=== PATIENT | female | born 1965 | race Caucasian/White ===

== ENCOUNTER → 2016-11-03 | Day surgery (SDC) | payer MEDICARE ==
[~2016-11-03] MED LIST: AMLO10TA2 PO; AMLO5TAB4 PO; ASPI325T4 PO; ASPI81TA2 PO; ATOR40TA59 PO; CEPH250C PO; CHLO25TA PO; CHOL200044 PO; CIPR500T94 PO; CLOP75TA PO; CYCL10TA2 PO; DICY10CA3 PO; FENTANYL PF 100 MCG/2 ML VIAL. IV PRN; GEMF600T3 PO; GUAI-105 PO; HYDR-2678 PO; HYDR-971 PO; IBUP200T77 PO; IV RINGERS,LACTATED 1000ML 1,000 ML IV SCH; L GA1CAP2 PO; LEVO25TA4 PO; LEVO500T38 PO; LIDOCAINE 1% 1 ML SYRINGE. ID PRN; LISI30TA4 PO; LISI40TA PO; LORA10TA3 PO; METF10002 PO; METO100T11 PO; METR500T PO; MV C PO; OMEG1CAP6 PO; OMEP40CA2 PO; ONDA4TAB7 PO; PITA4TAB2 PO; PROCHLORPERAZINE 10 MG/2 ML VIAL. IV PRN; PROPOFOL 20 ML IV ONE; SUCR1TAB PO; SUCR1TAB29 PO; UBID400C3 PO
--- NOTE | 2016-11-03 09:18 | PDOC1 ---
HISTORY & PHYSICAL H&P Brigida Virgen [id number] 1965 10/24/2016 10:30 AM 10/12 [place] [employer] [facility] PATIENTS COME FIRST [address] [place] [id number] . [phone] Patient: Brigida Virgen Date of : 1965 Date: 10/24/2016 10:30 AM Visit Type: Office Visit This 51 year old female presents for Abdominal pain, Diarrhea, Rectal bleeding, Elevated liver chemistry and Irritable bowel syndrome. History of Present Illness: 1. Abdominal pain Onset: 3 weeks ago. Location is midline, LLQ. The patient describes it as sharp and stabbing. Denies aggravating factors. Denies relieving factors. Additional information: Patient has episode of acute diverticulitis 3 weeks ago and went to ER and had CT. which showed diverticulitis and fatty liver. Patient was treated with Levaquin and Flagyl for 10 days. Improved. 2. Diarrhea Stool frequency: 3 to 4 times a day. The describes it as loose, mucus present and watery. It occurs cyclically. Context: AM predominance and recent antibiotics. She denies aggravating factors. Relieving factors include over the counter meds. Associated symptoms include abdominal pain and bloating. Additional information: no family history of colon cancer and no family history of Crohn's/Colitis. 3. Rectal bleeding Quality: BRBPR w/ bowel movement and BRBPR w/out bowel movement. Associated symptoms include abdominal pain and bloating. Additional information: Only has bleeding when she has diarrhea. 4. Elevated liver chemistry Associated symptoms include abdominal pain. Pertinent negatives include fatigue, jaundice, nausea and pruritus. Additional information: Patient has chronic elevation of LFT for last 2 yrs. She does not drink alcohol and no prior history of hepatitis.. 5. Irritable bowel syndrome Associated symptoms include abdominal pain and bloating. Pertinent negatives include fatigue and nausea. Additional information: Patient has chronic issue with diarrhea and was diagnosed with IBS. Treated before with Bentyl. Now takes Imodium as needed. INTAKE COMMENTS: Intake Comments: Nurse Note: the pt is here today after being seen in the ER and being dx'd with diverticulitis. The pt was put on Levaquin and flagyl at the ER. The pt states she is having diarrhea, abd pain and occassional rectal bleeding. The pt states that she does have hemorrhoids. PROBLEM LIST: Problem Description Onset Date Chronic Notes Essential hypertension 05/19/2014 Y Hyperlipidemia 05/19/2014 Y Type II diabetes mellitus uncontrolled 05/19/2014 Y Coronary atherosclerosis 05/19/2014 Y PAST MEDICAL/SURGICAL HISTORY (Detailed) Disease/disorder Onset Date Management Date Comments Hysterectomy, total CAD cardiac stents Cancer, cervical Diabetes mellitus Drug therapy Diabetes type 2 Medications (Active): Started Medication Directions Instruction Stopped 05/19/2014 Aspir-81 81 mg tablet,delayed release take 1 tablet by oral route every day 05/19/2014 atorvastatin 40 mg tablet take 1 tablet by oral route every day 07/06/2015 Carafate 1 gram tablet take 1 tablet by oral route 4 times every day on an empty stomach 1 hour before meals and at bedtime 05/19/2014 clopidogrel 75 mg tablet take 1 tablet by oral route every day 05/19/2014 Co Q-10 200 mg capsule take once daily 07/25/2016 DICYCLOMINE 10MG CAP TAKE ONE CAPSULE BY MOUTH TWICE DAILY 10/27/2014 gemfibrozil 600 mg tablet take 1 tablet by oral route 2 times every day 30 minutes before morning and evening meal hydrocodone 5 mg-acetaminophen 325 mg tablet take 1 tablet by oral route every 6 hours as needed for pain 01/26/2015 ibuprofen 800 mg tablet take 1 tablet by oral route 3 times every day with food as needed 07/25/2016 levothyroxine 25 mcg tablet TAKE ONE TABLET BY MOUTH ONCE DAILY 08/19/2016 lisinopril 40 mg tablet take 1 tablet by oral route every day 07/25/2016 metformin 1,000 mg tablet take 1 tablet by oral route 2 times every day with morning and evening meals 05/19/2014 metoprolol succinate ER 50 mg tablet,extended release 24 hr take 2 tablet by oral route every day metronidazole 500 mg tablet take 1 tablet by oral route 3 times every day 05/19/2014 omega-3 fatty acids-fish oil 360 mg-1,200 mg capsule take once daily ondansetron HCl 4 mg tablet take one tablet by mouth every 8 hours as needed for nausea 05/19/2014 Prilosec OTC 20 mg tablet,delayed release take once daily 05/19/2014 Vitamin D3 2,000 unit capsule take 1 tab po daily Allergies: Ingredient Reaction Medication Name Comment SULFA (SULFONAMIDE ANTIBIOTICS) MORPHINE HYDROCHLOROTHIAZIDE SULFA (SULFONAMIDE ANTIBIOTICS) REVIEW OF SYSTEMS System Neg/Pos Details Constitutional Negative Fatigue. GI Positive Abdominal pain, Bloating. GI Negative Jaundice and nausea. Integumentary Negative Pruritus. VITAL SIGNS Time BP mm/Hg Pulse /min Resp /min Temp F Ht ft Ht in Ht cm Wt lb Wt kg BMI kg/ m2 BSA m2 O2 Sat% 10:29 AM 122 97.6 5.0 3.00 160.02 212.40 96.343 37.62 97 Time Measured by 10:29 AM Kenisha Hickman PHYSICAL EXAM: Exam Findings Details Constitutional Normal Well developed. Eyes Normal Conjunctiva - Right: Normal, Left: Normal. Sclera - Right: Normal, Left: Normal. Nasopharynx Normal Lips/teeth/gums - Normal. Neck Exam Normal Inspection - Normal. Thyroid gland - Normal. Respiratory Normal Inspection - Normal. Auscultation - Normal. Cardiovascular Normal Regular rate and rhythm. No murmurs, gallops, or rubs. Vascular Normal Pulses - Carotids: Normal, Femoral: Normal, Dorsalis pedis: Normal. Abdomen Normal Inspection - Normal. Anterior palpation - No guarding. No abdominal tenderness. No hepatic enlargement. No splenic enlargement. No hernia. No Ascites. Skin Normal Inspection - Normal. Extremity Normal No edema. Psychiatric Normal Oriented to time, place, person, and situation. Appropriate mood and effect. The patient was checked out at 10:54 AM by Kenisha Hickman. Assessment/Plan # Detail Type Description 1. Assessment Abnormal LFTs (R79.89). Patient Plan Hepatitis profile. LAMONT, AMA, ASMA, serum Iron and %saturation. Plan Orders AMA/ Antimitochondrial Ab, LAMONT Comprehensive today, ASA/ Smooth Muscle Ab today, Hepatitis Profile Acute today and Iron And Iron Binding Capacity to be performed today. 2. Assessment Diverticulitis of large intestine without perforation or abscess without bleeding (K57.32). Patient Plan schedule colonoscopy at [facility] Plan Orders Further diagnostic evaluations ordered today include(s) Colonoscopy to be performed today. She is to schedule a follow-up visit with Monisha Nelson MD upon completion of work-up 3. Assessment Irritable bowel syndrome with diarrhea (K58.0). Patient Plan Patient on Imodium for her IBS. She use to be on betyl before. 4. Assessment Fatty liver (K76.0). Patient Plan await workup. 5. Assessment Rectal bleeding (K62.5). Patient Plan Await colonoscopy result. Electronically signed by: Monisha Nelson MD 10/24/2016 10:59 AM Document generated by: Monisha Nelson 10/24/2016 10:59 AM Riley Cary MD, [facility]; John Blackman MD Internal Medicine; Henny Sharma MD, Internal Medicine; Alaina Nelson MD Internal Medicine; Monisha Nelson MD, Gastroenterology; Chaparro Wen MD, Rheumatology, S. Ko Reyes, Physical Medicine/Rehab J. Stas CARMENN ------ 11/03/16 Patient seen and examined. No change in H&P. MONISHA NELSON MD Nov 03, 2016 09:18
--- NOTE | 2016-11-03 10:40 | PDOC4 ---
GI OP Report - Dr. Killian Date/Time DATE: 11/03/16 TIME: 10:38 Attending Physician Ciaran Killian MD Referring Physician Indications Follow-up of diverticulitis Pre-Op See the Anesthesia note for documentation of the administered medications Procedures Colonoscopy Findings - Diverticulosis in the sigmoid colon. - The examination was otherwise normal on direct and retroflexion views. - No specimens collected. Plan - Discharge patient to home. - Patient has a contact number available for emergencies. The signs and symptoms of potential delayed complications were discussed with the patient. Return to normal activities tomorrow. Written discharge instructions were provided to the patient. - Resume regular diet. - Continue present medications. - Repeat colonoscopy in 10 years for surveillance. - Return to my office as needed. CIARAN KILLIAN MD Nov 03, 2016 10:40
[2016-11-03 11:06] VITALS: BP 138/78
== END | disposition home or self-care (01) ==
LOC: ENDOS 08:30
PROVIDERS: ATTEND Internal Medicine Gastroenterology
DX: K57.30 Diverticulosis of large intestine without perforation or abscess without bleeding (principal); I10 Essential (primary) hypertension; E78.5 Hyperlipidemia, unspecified; E11.9 Type 2 diabetes mellitus without complications; I25.10 Atherosclerotic heart disease of native coronary artery without angina pectoris; Z95.5 Presence of coronary angioplasty implant and graft; Z85.41 Personal history of malignant neoplasm of cervix uteri
CPT/HCPCS: 45378; 82947; J2704

== ENCOUNTER 2017-03-28 19:24 | Emergency (ER) | payer MEDICARE ==
[~2017-03-28] VITALS: Ht 157.5 cm; Wt 95.3 kg
[~2017-03-28 19:24] MED LIST changes: +ASPI-630 PO; -ASPI325T4 PO; +ASPI325T8 PO; -ASPI81TA2 PO; -FENTANYL PF 100 MCG/2 ML VIAL. IV PRN; -IV RINGERS,LACTATED 1000ML 1,000 ML IV SCH; -LEVO500T38 PO; +LEVO500T59 PO; -LIDOCAINE 1% 1 ML SYRINGE. ID PRN; +METF-620 PO; -METF10002 PO; -PROCHLORPERAZINE 10 MG/2 ML VIAL. IV PRN; -PROPOFOL 20 ML IV ONE; -SUCR1TAB29 PO; +SUCR1TAB35 PO
[2017-03-28] MEDS ORDERED: ASPIRIN CHEWABLE 81 MG TABLET. PO ONE (19:30)
[2017-03-28] MEDS ORDERED: NITROGLYCERIN SUBLINGUAL 0.4 MG BOTTLE OF 25. SL PRN (19:30)
[2017-03-28 19:51] LABS: BASO # 0.1 x10^3/uL (0.0-0.2); BASO % 1 % (0-3); EOS % 1 % (0-3); HEMATOCRIT 39.9 % (36.0-47.0); HEMOGLOBIN 13.5 g/dL (12.0-15.5); LYMPH # 2.2 x10^3/uL (1.0-4.8); LYMPH % 24 % (24-48); MEAN CORPUSCULAR HEMOGLOBIN 31 pg (25-35); MEAN CORPUSCULAR HGB CONC 34 g/dL (31-37); MEAN CORPUSCULAR VOLUME 91 fL (79-100); MONO % 5 % (0-9); NEUT % 69 % (31-73); PLATELET COUNT 286 x10^3/uL (140-400); RED CELL DISTRIBUTION WIDTH 14.4 % (11.5-14.5); WHITE BLOOD COUNT 9.3 x10^3/uL (4.0-11.0)
[2017-03-28 20:00] LABS: CALCIUM 9.5 mg/dL (8.5-10.1); CREATININE 0.8 mg/dL (0.6-1.0); GFR 75.9
[2017-03-28] MEDS ORDERED: ACETAMINOPHEN 325 MG TABLET. PO ONE (20:00)
[2017-03-28 20:07] LABS: ALBUMIN 3.5 g/dL (3.4-5.0); DIRECT BILIRUBIN 0.1 mg/dL (0.0-0.2); TOTAL BILIRUBIN 0.4 mg/dL (0.2-1.0); TOTAL PROTEIN 8.2 g/dL (6.4-8.2)
--- NOTE | 2017-03-28 20:23 | PHYS DOC ---
Past Medical History Past Medical History: Arthritis, CAD, Diabetes-Type II, Diverticulosis, GERD, High Cholesterol, Hypertension, Hypothyroid, UT Additional Past Medical Histor: IB, cervical cancer, back pain Past Surgical History: Appendectomy, Cholecystectomy, Hysterectomy Additional Past Surgical Histo: heart cath, heart stents, Additional Information: quit in 2014 Alcohol Use: None Drug Use: None, Marijuana Adult General Chief Complaint Chief Complaint: CHEST PAIN HPI HPI 52-year-old female presenting to the emergency department with chest pain. She has a history of UT in the past. She currently is on Plavix and aspirin. She describes the pain as a pressure that is nonradiating mild intermittent and has been present for 24 hours. She denies unilateral leg swelling hemoptysis personal or family history of blood clotting disorders. She denies recent immobilization. Review of systems is negative for nausea vomiting or diaphoresis. She denies abdominal pain. Positive for chest pain. All other review of systems is negative unless otherwise noted in history of present illness. Pertinent physical exam findings: Heart rate is regular rhythm is regular. No murmur. Lungs are clear to auscultation Abdomen is soft and nontender. ED course: 52-year-old female presenting to the emergency department today with chest pain. EKG unremarkable. Chest x-ray unremarkable. Blood work obtained which included a negative troponin. Given the patient's high heart score(4) the patient was admitted for further evaluation workup and care. Cardiology consultation placed. Review of Systems Review of Systems SEE ABOVE. Current Medications Current Medications Current Medications Medications (Trade) Dose Ordered Sig/[facility] Start Time Stop Time Status Last Admin Dose Admin Acetaminophen (Tylenol) 650 mg 1X ONCE 03/28/17 20:00 03/28/17 20:01 DC 03/28/17 19:52 650 MG Aspirin (Children'S Aspirin) 324 mg 1X ONCE 03/28/17 19:30 03/28/17 19:31 DC 03/28/17 19:42 243 MG Nitroglycerin (Nitrostat) 0.4 mg PRN Q5MIN PRN 03/28/17 19:30 Allergies Allergies Allergies Coded Allergies Type Severity Reaction Last Updated Verified Sulfa (Sulfonamide Antibiotics) Allergy Severe GENERALIZED RASH 11/03/16 Yes doxycycline Allergy Severe BLISTERS ON SKIN - INTERNALLY FELT LIKE SHE WAS ON FIRE 11/03/16 Yes hydrochlorothiazide Adverse Reaction Severe HEART PALPITATIONS 11/03/16 Yes morphine Adverse Reaction Severe SEVERE HEADACE 11/03/16 Yes Physical Exam Physical Exam Constitutional: Well developed, well nourished, no acute distress, non-toxic appearance. [] HENT: Normocephalic, atraumatic, bilateral external ears normal, oropharynx moist, no oral exudates, nose normal. [] Eyes: PERRLA, EOMI, conjunctiva normal, no discharge. [] Neck: Normal range of motion, no tenderness, supple, no stridor. [] Cardiovascular:Heart rate regular rhythm, no murmur [] Lungs & Thorax: see above Abdomen: Bowel sounds normal, soft, no tenderness, no masses, no pulsatile masses. [] Skin: Warm, dry, no erythema, no rash. [] Back: No tenderness, no CVA tenderness. [] Extremities: No tenderness, no cyanosis, no clubbing, ROM intact, no edema. [] Neurologic: Alert and oriented X 3, normal motor function, normal sensory function, no focal deficits noted. [] Psychologic: Affect normal, judgement normal, mood normal. [] Current Patient Data Vital Signs Vital Signs Date Time Temp Pulse Resp B/P (MAP) Pulse Ox O2 Delivery O2 Flow Rate FiO2 03/28/17 19:27 97.7 94 24 151/95 (113) 93 Room Air 97.7 Lab Values Laboratory Tests Test 03/28/17 19:35 White Blood Count 9.3 x10^3/uL (4.0-11.0) Red Blood Count 4.40 x10^6/uL (3.50-5.40) Hemoglobin 13.5 g/dL (12.0-15.5) Hematocrit 39.9 % (36.0-47.0) Mean Corpuscular Volume 91 fL (79-100) Mean Corpuscular Hemoglobin 31 pg (25-35) Mean Corpuscular Hemoglobin Concent 34 g/dL (31-37) Red Cell Distribution Width 14.4 % (11.5-14.5) Platelet Count 286 x10^3/uL (140-400) Neutrophils (%) (Auto) 69 % (31-73) Lymphocytes (%) (Auto) 24 % (24-48) Monocytes (%) (Auto) 5 % (0-9) Eosinophils (%) (Auto) 1 % (0-3) Basophils (%) (Auto) 1 % (0-3) Neutrophils # (Auto) 6.5 x10^3uL (1.8-7.7) Lymphocytes # (Auto) 2.2 x10^3/uL (1.0-4.8) Monocytes # (Auto) 0.4 x10^3/uL (0.0-1.1) Eosinophils # (Auto) 0.1 x10^3/uL (0.0-0.7) Basophils # (Auto) 0.1 x10^3/uL (0.0-0.2) Sodium Level 137 mmol/L (136-145) Potassium Level 4.0 mmol/L (3.5-5.1) Chloride Level 97 mmol/L (98-107) L Carbon Dioxide Level 26 mmol/L (21-32) Anion Gap 14 (6-14) Blood Urea Nitrogen 15 mg/dL (7-20) Creatinine 0.8 mg/dL (0.6-1.0) Estimated GFR (Cockcroft-Gault) 75.9 Glucose Level 229 mg/dL (70-99) H Calcium Level 9.5 mg/dL (8.5-10.1) Total Bilirubin 0.4 mg/dL (0.2-1.0) Direct Bilirubin 0.1 mg/dL (0.0-0.2) Aspartate Amino Transferase (AST) 85 U/L (15-37) H Alanine Aminotransferase (ALT) 89 U/L (14-59) H Alkaline Phosphatase 137 U/L (46-116) H Troponin I Quantitative < 0.017 ng/mL (0.000-0.055) TO-Mbq-C-Type Natriuretic Peptide 27 pg/mL (0-124) Total Protein 8.2 g/dL (6.4-8.2) Albumin 3.5 g/dL (3.4-5.0) Lipase 131 U/L (73-393) Laboratory Tests 03/28/17 19:35 Laboratory Tests 03/28/17 19:35 EKG EKG EKG shows sinus rhythm with a regular rate. ST segments congruent. NH is mildly prolonged. Reviewed by myself. [] Radiology/Procedures Radiology/Procedures [] Course & Med Decision Making Course & Med Decision Making Pertinent Labs and Imaging studies reviewed. (See chart for details) [] Dragon Disclaimer Dragon Disclaimer This electronic medical record was generated, in whole or in part, using a voice recognition dictation system. Departure Departure Impression: Primary Impression: Chest pain Disposition: ADMITTED INPATIENT Admitting Physician: Roberto Sharma Condition: IMPROVED Referrals: ROBERTO HSARMA MD (PCP) Problem Qualifiers Primary Impression: Chest pain Chest pain type: unspecified Qualified Codes: R07.9 - Chest pain, unspecified KATHERYN DOMINGUEZ MD Mar 28, 2017 20:23
[2017-03-28 21:30] VITALS: BP 136/81
--- NOTE | 2017-03-28 21:52 | ACF ---
SUGEY GARCIAMark 03/28/17 2152: Admit Criteria Forms Admit Criteria Forms Admit Criteria Forms CHEST PAIN Clinical Indications for Admission to Inpatient Care (Place 'X' for any and all applicable criteria): Admission is indicated for chest pain and ANY ONE of the following(1)(2)(3)(4)(5 ): [ ]I. Angina with acute coronary syndrome (Also use Myocardial Infarction or Angina guideline) [ ]II. Hemodynamic instability [X]III. Angina needing acute intervention as indicated by ALL of the following( 11)(12): [X]a) Unstable angina is present as indicated by angina that is ANY ONE of the following: [X]i) New onset [ ]ii) Nocturnal [ ]iii) Prolonged at rest [ ]iv) Progressive [X]b) Angina warrants acute intervention as indicated by ANY ONE of the following: [ ]i) Recurrent angina (e.g, not responding as previously to treatment) [ ]ii) Angina at rest or with low-level activities despite initial medical therapy [ ]iii) New or presumably new ST-segment depression on ECG [ ]iv) Signs or symptoms of heart failure (eg, dyspnea, pulmonary edema) [ ]v) New or worsening mitral regurgitation [ ]vi) Hemodynamic instability [ ]vii) Dangerous arrhythmia (eg, sustained ventricular tachycardia) [ ]viii) History of percutaneous coronary intervention within 6 months [ ]ix) History of coronary artery bypass graft surgery [ ]x) SIRI risk score of 2 or greater[A] [X]xi) History of Diabetes(14) [ ]xii) High-risk cardiac ischemia findings on noninvasive testing (e.g, echocardiogram, treadmill testing, nuclear scan) [ ]xiii) Chronic renal insufficiency (ie, estimated GFR less than 60 mL/min/1.732m) [ ]xiv) Left ventricular ejection fraction less than 40% [ ]IV. Evidence of RI (eg, cardiac biomarkers positive, ST-segment elevation on ECG) also use Myocardial Infarction Criteria Form. [ ]V. Pulmonary edema [ ]. Respiratory distress [ ]VII. Chest pain indicative of serious diagnosis other than coronary artery disease (eg, aortic dissection) [ ]VIII. Contraindications and/or Inappropriate clinical situations for Observational Care in patients with Chest Pain, when ANY ONE of the following is required: [ ]a) Patient with risk factor for pulmonary embolism, acute coronary syndrome and myocardial infarction (18) [ ]b) Patient with Pulmonary embolism require an average LOS of 4.3 days, therefore emergency department observation management is inappropriate 18,23 [ ]c) Painful condition/s in the elderly, have the highest rate of recidivism after emergency department observation management (10.8%) 20,21,22 [ ]d) Elevated cardiac biomarker requires intensive and exhaustive care (19) [ ]IX. General contraindications and/or Inappropriate clinical situations for Observational Care in patients with Chest Pain, when ANY ONE of the following is required: [ ]a) Prediction of prolongation of LOS based on ANY ONE of the following may be considered as a contraindication for observational care 2, 3, 4, 5, 6, 7, 8, 9, 10, 11 [ ]i) Age > 65 yrs. [ ]ii) Patient arriving by ambulance [ ]iii) Patient with high acuity [ ]iv) Patient requiring vital sign monitoring [ ]v) Patient on IV medication [ ]b) Systolic blood pressures 180mmHg 3,12 [ ]c) Patient with altered mental status including delirium and other alteration of consciousness, (3) [ ]d) Patient whose discharge disposition will be to a fdc home or rehabilitation home should not be managed in Emergency Department Observation Unit. CMS rule requires 3 days hospital stay before such placement. 3,13 [ ]e) Patient with failure to thrive due to broad array of etiologies 3,16,17 [ ]f) Inability to ambulate 3,14 Extended stay beyond goal length of stay may be needed for (1)(28): [ ]a) Specific condition diagnosed after evaluation (eg, pulmonary embolism, aortic dissection) [ ]b) Unstable angina [ ]c) Continued suspicion of acute coronary syndrome with inability to complete needed cardiac evaluation (eg, patient clinically unable to undergo stress testing) [ ]d) Myocardial infarction (Contents from ANGINA and CHEST PAIN clinical indications for admission to inpatient care have been integrated in this form) The original [employer] content created by [employer] has been revised. The portions of the content which have been revised are identified through the use of italic text or in bold, and [facility] [employer] has neither reviewed nor approved the modified material. All other unmodified content is copyright [facility]. Please see references footnoted in the original [facility] edition 2016 KATHERYN DOMINGUEZ MD 03/28/17 2202: Admit Criteria Forms Admit Criteria Forms Admit Criteria Forms This patient does not meet inpatient criteria. I am unable to edit this form. MD RADHA Naranjo MANASA R. Mar 28, 2017 21:52 KATHERYN DOMINGUEZ MD Mar 28, 2017 22:02
--- NOTE | 2017-03-29 08:33 | RAD ---
EXAM: Chest one view. HISTORY: Chest pain. COMPARISON: None. FINDINGS: A frontal view of the chest is obtained. There are no confluent infiltrates. There is mild atelectasis in the right base. A calcified right basilar granuloma is stable. There is no pneumothorax or pleural effusion. The heart is not enlarged. IMPRESSION: 1. No confluent infiltrates.
--- NOTE | 2017-03-29 12:10 | EKG ---
[facility] [address] [place] [address] Test Date: 2017-03-28 Test Time: 19:30:06 Pat Name: DEION OMALLEY Department: Room: Gender: F Static Balancer: : 1965 Requested By: KATHERYN DOMINGUEZ Order Number: [id number] Reading MD: Otis Pelayo Measurements Intervals [place] Rate: 92 P: 44 [place]: 208 QRS: 12 QRSD: 72 T: 21 QT: 346 QTc: 433 Interpretive Statements SINUS RHYTHM PROLONGED [place] INTERVAL RI6.01 Unconfirmed report Compared to ECG 03/23/2016 14:20:08 Electronically Signed On 03-30-2017 10:57:38 CDT by Otis Pelayo
== END 2017-03-28 21:40 | disposition left against medical advice (07) ==
LOC: ER 19:24
DX: I25.2 Old myocardial infarction (principal); M19.90 Unspecified osteoarthritis, unspecified site; I25.10 Atherosclerotic heart disease of native coronary artery without angina pectoris; E11.9 Type 2 diabetes mellitus without complications; K21.9 Gastro-esophageal reflux disease without esophagitis; E78.00 Pure hypercholesterolemia, unspecified; I10 Essential (primary) hypertension; E03.9 Hypothyroidism, unspecified; Z95.5 Presence of coronary angioplasty implant and graft; Z88.2 Allergy status to sulfonamides; Z88.1 Allergy status to other antibiotic agents; Z88.5 Allergy status to narcotic agent; Z88.8 Allergy status to other drugs, medicaments and biological substances; Z87.891 Personal history of nicotine dependence; Z90.49 Acquired absence of other specified parts of digestive tract; Z90.710 Acquired absence of both cervix and uterus
CPT/HCPCS: 36415; 71010; 80048; 80076; 83690; 83880; 84484; 85027; 93005; 99285-25

== ENCOUNTER 2018-04-22 09:41 | Inpatient (IN) | payer MEDICARE ==
[2018-04-22 10:07] LABS: ADD MAN DIFF? NO
[2018-04-22] MEDS: ASPIRIN 325 MG TABLET PO (10:14)
[2018-04-22 10:18] LABS: ANION GAP 8 (6-14); BLOOD UREA NITROGEN 19 mg/dL (7-20); BUN/CREATININE RATIO 21 (6-20); CALCIUM 9.9 mg/dL (8.5-10.1); CARBON DIOXIDE 32 mmol/L (21-32); CHLORIDE 99 mmol/L (98-107); CREATININE 0.9 mg/dL (0.6-1.0); GLUCOSE 146 mg/dL (70-99); POTASSIUM 3.7 mmol/L (3.5-5.1); SODIUM 139 mmol/L (136-145)
[2018-04-22 10:29] LABS: BASO % 1 % (0-3); EOS # 0.1 x10^3/uL (0.0-0.7); EOS % 2 % (0-3); HEMATOCRIT 40.5 % (36.0-47.0); HEMOGLOBIN 14.1 g/dL (12.0-15.5); LYMPH # 2.1 x10^3/uL (1.0-4.8); LYMPH % 23 % (24-48); MEAN CORPUSCULAR HEMOGLOBIN 31 pg (25-35); MEAN CORPUSCULAR HGB CONC 35 g/dL (31-37); MEAN CORPUSCULAR VOLUME 90 fL (79-100); MONO # 0.3 x10^3/uL (0.0-1.1); MONO % 4 % (0-9); NEUT # 6.5 x10^3uL (1.8-7.7); NEUT % 71 % (31-73); PLATELET COUNT 269 x10^3/uL (140-400); RED CELL DISTRIBUTION WIDTH 13.8 % (11.5-14.5); WHITE BLOOD COUNT 9.2 x10^3/uL (4.0-11.0)
[2018-04-22 10:38] LABS: ALBUMIN 3.8 g/dL (3.4-5.0); ALBUMIN/GLOBULIN RATIO 0.8 (1.0-1.7); ALK PHOS 157 U/L (46-116); ALT (SGPT) 51 U/L (14-59); AST (SGOT) 31 U/L (15-37); TOTAL BILIRUBIN 0.5 mg/dL (0.2-1.0); TOTAL PROTEIN 8.7 g/dL (6.4-8.2)
[2018-04-22] MEDS: ACETAMINOPHEN 500 MG TABLET PO (11:13)
[2018-04-22 11:19] LABS: BILIRUBIN,URINE NEGATIVE (NEG); CLARITY,URINE CLEAR; COLOR,URINE YELLOW; GLUCOSE,URINE NEGATIVE (NEG); NITRITE,URINE NEGATIVE (NEG); PROTEIN,URINE NEGATIVE (NEG-TRACE); UROBILINOGEN,URINE 0.2 mg/dL (0.2 mg/dL)
[2018-04-22 11:28] LABS: BACTERIA,URINE 0 /HPF (0-FEW); RBC,URINE 0 /HPF (0-2); SQUAMOUS EPITHELIAL CELL,UR FEW /LPF; WBC,URINE 0 /HPF (0-4)
[2018-04-22] MEDS ORDERED: ONDANSETRON PF 4 MG/2 ML VIAL. IV (11:30)
[2018-04-22] MEDS: IV NORMAL SALINE 1000ML BAG 1,000 ML IV (12:55)
[2018-04-22] MEDS: NITROGLYCERIN SUBLINGUAL 0.4 MG BOTTLE OF 25. SL (12:58)
[2018-04-22 13:01] LABS: POC GLUCOSE 107 mg/dL (70-99)
[2018-04-22] MEDS ORDERED: oxyCODONE/APAP 5/325 1 TAB TABLET PO (14:00)
[2018-04-22] MEDS ORDERED: CALCIUM CARBONATE 500 MG TAB.CHEW PO (14:00)
[2018-04-22 14:33] LABS: CHOLESTEROL 212 mg/dL (0-200); HDLC 39 mg/dL (40-60); LDLC 111 mg/dL (0-100); NON-HDL CHOLESTEROL 173 mg/dL (0-129); TRIGLYCERIDES 308 mg/dL (0-150); VLDLC 62 mg/dL (0-40)
[2018-04-22 14:37] LABS: CHOLESTEROL/HDL RATIO 5.4
[2018-04-22] MEDS: LEVOTHYROXINE 50 MCG TABLET PO (15:00)
[2018-04-22] MEDS: CLOPIDOGREL BISULFATE 75 MG TABLET PO (15:00)
[2018-04-22] MEDS: LISINOPRIL 20 MG TABLET PO (15:00)
[2018-04-22] MEDS: CHLORTHALIDONE 25 MG TABLET. PO (15:00)
[2018-04-22] MEDS ORDERED: DEXTROSE 50% 25 GM / 50ML DISP.SYRIN. IV (15:00)
[2018-04-22 15:09] LABS: TROPONINI < 0.017 ng/mL (0.000-0.055)
[2018-04-22] MEDS: METOPROLOL SUCC 24HR ER 100 MG TAB.ER.24H. PO (16:00)
[2018-04-22] MEDS: INSULIN LISPRO 300 UNITS/3 ML INSULN.PEN. SQ (17:00)
[2018-04-22 17:49] LABS: TROPONINI < 0.017 ng/mL (0.000-0.055)
[2018-04-22] MEDS: LACTOBACILLUS RHAMNOSUS GG 1 CAPSULE. PO (17:53)
[2018-04-22] MEDS: PANTOPRAZOLE 40 MG TABLET.DR. PO (17:53)
[2018-04-22] MEDS: IBUPROFEN 600 MG TABLET. PO (19:01)
[2018-04-22] MEDS ORDERED: UBIDECARENONE 400 MG PO (21:00)
[2018-04-22] MEDS: CLOTRIMAZOLE/BETAMETH 1%-0.05% TOPICAL CREAM 15GM TUBE. TP (21:00)
[2018-04-22 21:05] LABS: POC GLUCOSE 126 mg/dL (70-99)
[2018-04-22 21:05] LABS: POC GLUCOSE 118 mg/dL (70-99)
[2018-04-22] MEDS: LATANOPROST 0.005% OPHTH SOLUTION 2.5ML BOTTLE. OU (21:25)
[2018-04-22] MEDS: DICYCLOMINE HCL 10 MG CAPSULE PO (21:26)
[2018-04-22] MEDS: ATORVASTATIN CALCIUM 40 MG TABLET. PO (21:26)
[2018-04-22] MEDS: NORTRIPTYLINE 10 MG CAPSULE PO (21:26)
[2018-04-22] MEDS: OMEGA-3 FATTY ACIDS/FISH OIL 1,000 MG CAPSULE. PO (21:26)
[2018-04-22] MEDS: INSULIN GLARGINE 300 UNITS/3 ML INSULN.PEN. SQ (21:33)
[2018-04-22] MEDS ORDERED: NON FORMULARY ITEM (Insulin Detemir (Levemir Flextouch) 20 UNITS) SQ (23:00)
[2018-04-23] MEDS: IV NORMAL SALINE 1000ML BAG 1,000 ML IV (01:39)
[2018-04-23 05:06] LABS: CHOLESTEROL 183 mg/dL (0-200); HDLC 33 mg/dL (40-60); LDLC 94 mg/dL (0-100); NON-HDL CHOLESTEROL 150 mg/dL (0-129); TRIGLYCERIDES 281 mg/dL (0-150); VLDLC 56 mg/dL (0-40)
[2018-04-23 05:14] LABS: CHOLESTEROL/HDL RATIO 5.5
[2018-04-23 05:18] LABS: THYROID STIM HORMONE (TSH) 3.609 uIU/mL (0.358-3.74)
[2018-04-23] MEDS: LEVOTHYROXINE 50 MCG TABLET PO (06:15)
[2018-04-23] MEDS: INSULIN LISPRO 300 UNITS/3 ML INSULN.PEN. SQ ×2 (08:00→12:00)
[2018-04-23 08:36] LABS: POC GLUCOSE 111 mg/dL (70-99)
[2018-04-23] MEDS: LACTOBACILLUS RHAMNOSUS GG 1 CAPSULE. PO (08:38)
[2018-04-23] MEDS: METOPROLOL SUCC 24HR ER 100 MG TAB.ER.24H. PO (08:39)
[2018-04-23] MEDS: MULTIVITAMIN with MINERAL TABLET. PO (08:39)
[2018-04-23] MEDS: DICYCLOMINE HCL 10 MG CAPSULE PO (08:39)
[2018-04-23] MEDS: CHLORTHALIDONE 25 MG TABLET. PO (08:39)
[2018-04-23] MEDS: CLOPIDOGREL BISULFATE 75 MG TABLET PO (08:39)
[2018-04-23] MEDS: IBUPROFEN 600 MG TABLET. PO (08:39)
[2018-04-23] MEDS: CETIRIZINE HCL 10 MG TABLET. PO (08:40)
[2018-04-23] MEDS: ASPIRIN CHEWABLE 81 MG TABLET. PO (08:40)
[2018-04-23] MEDS: LISINOPRIL 20 MG TABLET PO (08:40)
[2018-04-23] MEDS: PANTOPRAZOLE 40 MG TABLET.DR. PO (08:41)
[2018-04-23] MEDS: OMEGA-3 FATTY ACIDS/FISH OIL 1,000 MG CAPSULE. PO (08:41)
[2018-04-23] MEDS: CLOTRIMAZOLE/BETAMETH 1%-0.05% TOPICAL CREAM 15GM TUBE. TP (08:41)
[2018-04-23] MEDS: LINAGLIPTIN 5 MG TABLET PO (08:41)
[2018-04-23] MEDS: CHOLECALCIFEROL (VITAMIN D3) 1,000 UNIT TABLET PO (08:41)
[2018-04-23 12:47] LABS: POC GLUCOSE 93 mg/dL (70-99)
== END 2018-04-23 14:21 | disposition home or self-care (01) | DRG 392 ==
LOC: ER 09:41 → 2 SOUTH 11:15
DX: K21.9 Gastro-esophageal reflux disease without esophagitis (principal); E03.9 Hypothyroidism, unspecified; E78.00 Pure hypercholesterolemia, unspecified; E78.5 Hyperlipidemia, unspecified; F41.1 Generalized anxiety disorder; I10 Essential (primary) hypertension; I25.10 Atherosclerotic heart disease of native coronary artery without angina pectoris; K57.90 Diverticulosis of intestine, part unspecified, without perforation or abscess without bleeding; F32.9 Major depressive disorder, single episode, unspecified; M47.9 Spondylosis, unspecified; E11.42 Type 2 diabetes mellitus with diabetic polyneuropathy; I25.2 Old myocardial infarction; Z79.4 Long term (current) use of insulin; Z82.49 Family history of ischemic heart disease and other diseases of the circulatory system; Z83.3 Family history of diabetes mellitus; Z85.41 Personal history of malignant neoplasm of cervix uteri; Z87.891 Personal history of nicotine dependence; Z88.2 Allergy status to sulfonamides; Z90.49 Acquired absence of other specified parts of digestive tract; Z90.710 Acquired absence of both cervix and uterus; Z95.5 Presence of coronary angioplasty implant and graft; Z79.2 Long term (current) use of antibiotics; Z79.899 Other long term (current) drug therapy; Z88.8 Allergy status to other drugs, medicaments and biological substances
CPT/HCPCS: 36415; 71045; 80053; 80061; 81001; 82962; 83036; 84443; 84484; 85025; 93005; 99285; 99285-25; J1815; J7030

== ENCOUNTER 2018-05-26 00:30 | Emergency (ER) | payer MEDICARE ==
[~2018-05-26] VITALS: Ht 162.6 cm; Wt 81.2 kg
[~2018-05-26 00:30] MED LIST changes: +CALC300T5 PO; +CEFP100T PO; +CIPR250T30 PO; +CLOT15CR5 TP; +HYDR-2758 PO; +INSU100I17 SQ; +INSU100I27 SQ; +LATA2.5D3 OP; +LISI-130 PO; -LISI40TA PO; -METF-620 PO; +METF10003 PO; +METO-247 PO; -METO100T11 PO; +MULT-129 PO; +NORT10CA PO; +NORT25CA PO; +ONDA4TAB10 SL; +OXYC-323 PO; +SITA100T PO; +VANC125C10 PO
--- NOTE | 2018-05-26 01:23 | EKG ---
[facility] [address] [place] [address] Test Date: 2018-05-26 Test Time: 00:35:46 Pat Name: DEION OMALLEY Department: Room: Gender: F See Wheeler: : 1965 Requested By: ÁLVARO PATEL Order Number: [id number] Reading MD: Ash Cast MD Measurements Intervals [place] Rate: 67 P: 39 [place]: 256 QRS: 7 QRSD: 82 T: 28 QT: 406 QTc: 432 Interpretive Statements SINUS RHYTHM PROLONGED [place] INTERVAL Electronically Signed On 05-27-2018 15:22:58 CDT by Ash Cast MD
[2018-05-26 01:24] LABS: BASO # 0.1 x10^3/uL (0.0-0.2); BASO % 1 % (0-3); EOS # 0.2 x10^3/uL (0.0-0.7); EOS % 2 % (0-3); HEMATOCRIT 38.5 % (36.0-47.0); HEMOGLOBIN 13.9 g/dL (12.0-15.5); LYMPH # 3.3 x10^3/uL (1.0-4.8); LYMPH % 35 % (24-48); MEAN CORPUSCULAR HEMOGLOBIN 32 pg (25-35); MEAN CORPUSCULAR HGB CONC 36 g/dL (31-37); MEAN CORPUSCULAR VOLUME 89 fL (79-100); MONO # 0.3 x10^3/uL (0.0-1.1); MONO % 4 % (0-9); NEUT # 5.5 x10^3uL (1.8-7.7); NEUT % 58 % (31-73); PLATELET COUNT 272 x10^3/uL (140-400); RED BLOOD COUNT 4.31 x10^6/uL (3.50-5.40); RED CELL DISTRIBUTION WIDTH 13.5 % (11.5-14.5); WHITE BLOOD COUNT 9.4 x10^3/uL (4.0-11.0)
[2018-05-26 01:34] LABS: CALCIUM 9.7 mg/dL (8.5-10.1); CREATININE 0.7 mg/dL (0.6-1.0); GFR 88.2; POTASSIUM 3.9 mmol/L (3.5-5.1)
--- NOTE | 2018-05-26 01:37 | PHYS DOC ---
Past Medical History Past Medical History: Anxiety, Arthritis, Bronchitis, CAD, Cancer, Diabetes- Type II, High Cholesterol, Hypertension, Hypothyroid, IBS, [place] Additional Past Medical Histor: CERVICAL CANCER Past Surgical History: Cholecystectomy, Hysterectomy Additional Past Surgical Histo: CARDIAC CATH X3, TOE SX BOTH FEET Alcohol Use: None Drug Use: Marijuana Adult General Chief Complaint Chief Complaint: CHEST PAIN HPI HPI Patient is a 53 year old female who presents with general body aches. The patient states she has been having general body aches over the upper portion of her body. She complains of muscle aches and dull crampy type pain that she has with the right side of her chest and her arms bilaterally. Sometimes the pain radiates to the left side of her chest into left arm. Pain symptoms are worse when she moves and sometimes when she takes a deep breath. Patient states she was evaluated for similar symptoms about 1 month ago and was admitted to this hospital. Although she has a known history of coronary artery disease, the patient relates that there were no acute findings during that workup and that her pain mostly when unexplained. She denies a fever or chills. No nausea or vomiting. Tonight, she states the pain simply became too much for her to bear at home. Review of Systems Review of Systems Constitutional: Denies fever or chills Eyes: Denies change in visual acuity HENT: Denies nasal congestion or sore throat Respiratory: Denies cough or shortness of breath Cardiovascular: No additional information not addressed in HPI GI: Denies abdominal pain, nausea, vomiting : Denies dysuria or hematuria Musculoskeletal: general body aches Integument: Denies rash Neurologic: Denies headache, or focal neuro complaints All other systems were reviewed and found to be within normal limits, except as documented in this note. Current Medications Current Medications Current Medications Medications (Trade) Dose Ordered Sig/Vincent Start Time Stop Time Status Last Admin Dose Admin Fentanyl Citrate (Fentanyl 2ml Vial) 50 mcg 1X ONCE 05/26/18 03:00 05/26/18 03:01 DC 05/26/18 02:52 50 MCG Ketorolac Tromethamine (Toradol 15mg Vial) 15 mg 1X ONCE 05/26/18 03:00 05/26/18 03:01 DC 05/26/18 02:52 15 MG Allergies Allergies Allergies Coded Allergies Type Severity Reaction Last Updated Verified Sulfa (Sulfonamide Antibiotics) Allergy Severe GENERALIZED RASH 11/03/16 Yes doxycycline Allergy Severe BLISTERS ON SKIN - INTERNALLY FELT LIKE SHE WAS ON FIRE 11/03/16 Yes hydrochlorothiazide Adverse Reaction Severe HEART PALPITATIONS 11/03/16 Yes morphine Adverse Reaction Severe SEVERE HEADACE 11/03/16 Yes Physical Exam Physical Exam Constitutional: Well developed, well nourished, no acute distress, non-toxic appearance HENT: Normocephalic, atraumatic, bilateral external ears normal, oropharynx moist Eyes: PERRLA, EOMI, conjunctiva normal, disconjugate gaze Neck: Normal range of motion, no tenderness, supple Cardiovascular:Heart rate regular rhythm, no murmur Lungs & Thorax: Bilateral breath sounds clear to auscultation Abdomen: Bowel sounds normal, soft, no tenderness Skin: Warm, dry, no erythema Back: No tenderness, no CVA tenderness Extremities: No edema. diffuse tenderness to palpation over pectoralis muscles and arms bilaterally Neurologic: Alert and oriented X 3 Psychologic: Affect normal Current Patient Data Vital Signs Vital Signs Date Time Temp Pulse Resp B/P (MAP) Pulse Ox O2 Delivery O2 Flow Rate FiO2 05/26/18 03:05 64 115/66 (82) 93 Room Air 05/26/18 00:30 98.1 16 98.1 Lab Values Laboratory Tests Test 05/26/18 00:55 White Blood Count 9.4 x10^3/uL (4.0-11.0) Red Blood Count 4.31 x10^6/uL (3.50-5.40) Hemoglobin 13.9 g/dL (12.0-15.5) Hematocrit 38.5 % (36.0-47.0) Mean Corpuscular Volume 89 fL (79-100) Mean Corpuscular Hemoglobin 32 pg (25-35) Mean Corpuscular Hemoglobin Concent 36 g/dL (31-37) Red Cell Distribution Width 13.5 % (11.5-14.5) Platelet Count 272 x10^3/uL (140-400) Neutrophils (%) (Auto) 58 % (31-73) Lymphocytes (%) (Auto) 35 % (24-48) Monocytes (%) (Auto) 4 % (0-9) Eosinophils (%) (Auto) 2 % (0-3) Basophils (%) (Auto) 1 % (0-3) Neutrophils # (Auto) 5.5 x10^3uL (1.8-7.7) Lymphocytes # (Auto) 3.3 x10^3/uL (1.0-4.8) Monocytes # (Auto) 0.3 x10^3/uL (0.0-1.1) Eosinophils # (Auto) 0.2 x10^3/uL (0.0-0.7) Basophils # (Auto) 0.1 x10^3/uL (0.0-0.2) Erythrocyte Sedimentation Rate 46 (0-25) H Prothrombin Time 12.8 SEC (11.7-14.0) Prothrombin Time INR 1.0 (0.8-1.1) PTT 23 SEC (24-38) L D-Dimer (Emily) 0.34 ug/mlFEU (0.00-0.50) Sodium Level 138 mmol/L (136-145) Potassium Level 3.9 mmol/L (3.5-5.1) Chloride Level 100 mmol/L (98-107) Carbon Dioxide Level 30 mmol/L (21-32) Anion Gap 8 (6-14) Blood Urea Nitrogen 18 mg/dL (7-20) Creatinine 0.7 mg/dL (0.6-1.0) Estimated GFR (Cockcroft-Gault) 88.2 Glucose Level 122 mg/dL (70-99) H Calcium Level 9.7 mg/dL (8.5-10.1) Troponin I Quantitative < 0.017 ng/mL (0.000-0.055) C-Reactive Protein, Quantitative 8.7 mg/L (0-3.3) H AI-Dkl-S-Type Natriuretic Peptide 24 pg/mL (0-124) Laboratory Tests 05/26/18 00:55 Laboratory Tests 05/26/18 00:55 EKG EKG NSR. No STEMI Interpretation Time: 00:40 Radiology/Procedures Radiology/Procedures No acute findings on CXR Course & Med Decision Making Course & Med Decision Making Pertinent Labs and Imaging studies reviewed. (See chart for details) 01:30: Patient is seen and examined. Standard ACS work up is ordered. her pain seems more MSK in nature. EKG is non-acute. 03:40: All results are reviewed and discussed with the patient. The EKG does not have acute changes. The troponin is not elevated. The patient was given a dose of pain medication in the ER including Toradol and a small dose of fentanyl. Her pain is much improved. The patient is given the option for admission however she does have a follow-up appointment at 10:30 this morning and she is requesting discharge home. She did recently undergo an extensive cardiac workup and was not found to have acute occlusive coronary artery disease. Patient is discharged to home. She will come back to the ER if her symptoms worsen or she develops new or additional symptoms. Dragon Disclaimer Dragon Disclaimer This electronic medical record was generated, in whole or in part, using a voice recognition dictation system. Departure Departure Referrals: ROBERTO STUART MD (PCP) ÁLVARO PATEL DO May 26, 2018 01:37
[2018-05-26 01:40] LABS: PROTHROMBIN TIME PATIENT 12.8 SEC (11.7-14.0)
[2018-05-26 01:49] LABS: D-DIMER 0.34 ug/mlFEU (0.00-0.50)
[2018-05-26] MEDS ORDERED: fentaNYL PF VIAL 100 MCG/2 ML VIAL IV ONE (03:00)
[2018-05-26] MEDS ORDERED: KETOROLAC 15 MG/ML VIAL. IV ONE (03:00)
[2018-05-26 03:35] VITALS: BP 117/67
--- NOTE | 2018-05-26 07:58 | RAD ---
EXAM: Portable AP upright view of the chest DATE: 05/26/2018 1:17 AM INDICATION: chest pain COMPARISON: 03/23/2018, 10/30/2017 CT abdomen 09/25/2017 FINDINGS: The heart is not enlarged. Mediastinal and hilar contours are normal. Minimal platelike opacities right lung base likely subsegmental atelectasis. Otherwise, No focal parenchymal airspace opacity. Calcified granuloma right lung base stable to slightly CT 09/25/2017. No pleural effusion or pneumothorax. IMPRESSION: 1. No radiographic evidence for acute cardiopulmonary process. Electronically signed by: Clemente Driver MD (05/26/2018 7:54 AM) [facility]
[2018-05-26 08:50] LABS: BILIRUBIN,URINE NEGATIVE (NEG); CLARITY,URINE CLEAR; COLOR,URINE YELLOW; NITRITE,URINE NEGATIVE (NEG); PH,URINE 7.5; PROTEIN,URINE NEGATIVE (NEG-TRACE); UROBILINOGEN,URINE 0.2 mg/dL (0.2 mg/dL)
[2018-05-26 09:01] LABS: BACTERIA,URINE 0 /HPF (0-FEW); RBC,URINE RARE /HPF (0-2); SQUAMOUS EPITHELIAL CELL,UR FEW /LPF; WBC,URINE RARE /HPF (0-4)
== END 2018-05-26 04:10 | disposition home or self-care (01) ==
LOC: ER 00:30
DX: R07.89 Other chest pain (principal); M79.1 Myalgia; F41.9 Anxiety disorder, unspecified; M19.90 Unspecified osteoarthritis, unspecified site; I25.10 Atherosclerotic heart disease of native coronary artery without angina pectoris; E11.9 Type 2 diabetes mellitus without complications; E78.00 Pure hypercholesterolemia, unspecified; E03.9 Hypothyroidism, unspecified; I10 Essential (primary) hypertension; Z90.49 Acquired absence of other specified parts of digestive tract; Z90.710 Acquired absence of both cervix and uterus; Z88.2 Allergy status to sulfonamides; Z88.8 Allergy status to other drugs, medicaments and biological substances; Z88.5 Allergy status to narcotic agent
CPT/HCPCS: 36415; 71045; 80048; 81001; 83880; 84484; 85025; 85379; 85610; 85651; 85730; 86140; 93005; 96374; 96375; 99285; J1885; J3010

== ENCOUNTER 2018-07-01 21:52 | Inpatient (IN) | payer MEDICARE ==
[~2018-07-01] VITALS: Ht 162.6 cm; Wt 81.8 kg
[~2018-07-01 21:52] MED LIST changes: -AMLO10TA2 PO; +AMLO10TA6 PO; -GEMF600T3 PO; +GEMF600T4 PO; -METF10003 PO; +METF10007 PO
[2018-07-01] MEDS ORDERED: ASPIRIN 325 MG TABLET PO ONE (22:15)
--- NOTE | 2018-07-01 22:23 | PHYS DOC ---
Past Medical History Past Medical History: Anxiety, Arthritis, Bronchitis, CAD, Cancer, Diabetes- Type II, High Cholesterol, Hypertension, Hypothyroid, IBS, [place] Additional Past Medical Histor: CERVICAL CANCER Past Surgical History: Cholecystectomy, Hysterectomy Additional Past Surgical Histo: CARDIAC CATH X3, TOE SX BOTH FEET Alcohol Use: None Drug Use: Marijuana Adult General Chief Complaint Chief Complaint: CHEST PAIN HPI HPI Patient is a 53 year old female who presents with acute onset crushing chest pain approximately 4 hours ago. Patient notes she was crocheting at home when the pain started and she has had associated diaphoresis and radiation of pain to her right arm and upper back. Patient denies any nausea, shortness of breath , or lower extremity pain. Patient notes midsternal thoracic pain when she takes a deep breath. Patient notes pain gets worse with general movement. Patient notes she took some ibuprofen an hour half and pain started without any relief. Patient notes that she is currently taking Plavix and aspirin. Patient states she had an SC 4 years ago and has had 2 catheterizations with 3 total stents placed. Review of Systems Review of Systems Constitutional: Denies fever or chills [] Eyes: Denies change in visual acuity, redness, or eye pain [] HENT: Denies nasal congestion or sore throat [] Respiratory: Denies cough or shortness of breath [] Cardiovascular: Notes chest pain denies palpitations[] GI: Denies abdominal pain, nausea, vomiting, bloody stools or diarrhea [] : Denies dysuria or hematuria [] Musculoskeletal: Notes back pain, denies joint pain [] Integument: Denies rash or skin lesions [] Neurologic: Denies headache, focal weakness or sensory changes [] Endocrine: Denies polyuria or polydipsia [] Complete systems were reviewed and found to be within normal limits, except as documented in this note. Current Medications Current Medications Current Medications Medications (Trade) Dose Ordered Sig/Vincent Start Time Stop Time Status Last Admin Dose Admin Aspirin (Kayla Aspirin) 325 mg 1X ONCE 07/01/18 22:15 07/01/18 22:16 DC 07/01/18 22:30 325 MG Famotidine (Pepcid Vial) 20 mg 1X ONCE 07/01/18 22:30 07/01/18 22:31 DC 07/01/18 22:34 20 MG Fentanyl Citrate (Fentanyl 2ml Vial) 50 mcg PRN Q2HR PRN 9/21/18 00:15 07/03/18 00:14 Multi-Ingredient Mouthwash/Gargle (Gi Cocktail) 20 ml 1X ONCE 07/01/18 22:30 07/01/18 22:31 DC 07/01/18 22:34 20 ML Ondansetron HCl (Zofran) 4 mg PRN Q8HRS PRN 07/02/18 00:15 07/03/18 00:14 Allergies Allergies Allergies Coded Allergies Type Severity Reaction Last Updated Verified Sulfa (Sulfonamide Antibiotics) Allergy Severe GENERALIZED RASH 11/03/16 Yes doxycycline Allergy Severe BLISTERS ON SKIN - INTERNALLY FELT LIKE SHE WAS ON FIRE 11/03/16 Yes hydrochlorothiazide Adverse Reaction Severe HEART PALPITATIONS 11/03/16 Yes morphine Adverse Reaction Severe SEVERE HEADACE 11/03/16 Yes Physical Exam Physical Exam Constitutional: Well developed, well nourished, moderate distress, non-toxic appearance. [] HENT: Normocephalic, atraumatic, oropharynx moist, no oral exudates, nose normal. [] Eyes: PERRL, EOMI, conjunctiva normal, no discharge. [] Neck: Normal range of motion, no tenderness, supple, no stridor. [] Cardiovascular:Heart rate regular rhythm, no murmur [] Lungs & Thorax: Bilateral breath sounds clear to auscultation. Costochrondral chest wall tenderness with palpation [] Abdomen: Soft, nondistended. epigastric tenderness to palpation. [] Skin: Warm, dry, no erythema, no rash. [] Back: No tenderness, no CVA tenderness. [] Extremities: No tenderness, negative Homans sign, no cyanosis, no clubbing, ROM intact, no edema. [] Neurologic: Alert and oriented X 3, normal motor function, normal sensory function, no focal deficits noted. [] Psychologic: Affect normal, judgement normal, mood normal. [] Current Patient Data Vital Signs Vital Signs Date Time Temp Pulse Resp B/P (MAP) Pulse Ox O2 Delivery O2 Flow Rate FiO2 07/01/18 22:31 20 94 Room Air 07/01/18 21:53 97.7 82 101/81 (88) 97.7 Lab Values Laboratory Tests Test 07/01/18 22:17 White Blood Count 10.0 x10^3/uL (4.0-11.0) Red Blood Count 4.41 x10^6/uL (3.50-5.40) Hemoglobin 13.8 g/dL (12.0-15.5) Hematocrit 39.4 % (36.0-47.0) Mean Corpuscular Volume 90 fL (79-100) Mean Corpuscular Hemoglobin 31 pg (25-35) Mean Corpuscular Hemoglobin Concent 35 g/dL (31-37) Red Cell Distribution Width 13.2 % (11.5-14.5) Platelet Count 284 x10^3/uL (140-400) Neutrophils (%) (Auto) 60 % (31-73) Lymphocytes (%) (Auto) 34 % (24-48) Monocytes (%) (Auto) 4 % (0-9) Eosinophils (%) (Auto) 2 % (0-3) Basophils (%) (Auto) 1 % (0-3) Neutrophils # (Auto) 6.0 x10^3uL (1.8-7.7) Lymphocytes # (Auto) 3.4 x10^3/uL (1.0-4.8) Monocytes # (Auto) 0.4 x10^3/uL (0.0-1.1) Eosinophils # (Auto) 0.2 x10^3/uL (0.0-0.7) Basophils # (Auto) 0.1 x10^3/uL (0.0-0.2) Prothrombin Time 13.1 SEC (11.7-14.0) Prothrombin Time INR 1.0 (0.8-1.1) Sodium Level 138 mmol/L (136-145) Potassium Level 3.8 mmol/L (3.5-5.1) Chloride Level 100 mmol/L (98-107) Carbon Dioxide Level 28 mmol/L (21-32) Anion Gap 10 (6-14) Blood Urea Nitrogen 22 mg/dL (7-20) H Creatinine 0.8 mg/dL (0.6-1.0) Estimated GFR (Cockcroft-Gault) 75.6 BUN/Creatinine Ratio 28 (6-20) H Glucose Level 151 mg/dL (70-99) H Calcium Level 9.5 mg/dL (8.5-10.1) Magnesium Level 1.9 mg/dL (1.8-2.4) Total Bilirubin 0.3 mg/dL (0.2-1.0) Aspartate Amino Transferase (AST) 24 U/L (15-37) Alanine Aminotransferase (ALT) 41 U/L (14-59) Alkaline Phosphatase 118 U/L (46-116) H Creatine Kinase 44 U/L (26-192) Troponin I Quantitative < 0.017 ng/mL (0.000-0.055) XB-Pew-W-Type Natriuretic Peptide 7 pg/mL (0-124) Total Protein 8.5 g/dL (6.4-8.2) H Albumin 3.7 g/dL (3.4-5.0) Albumin/Globulin Ratio 0.8 (1.0-1.7) L Lipase 160 U/L (73-393) Laboratory Tests 07/01/18 22:17 Laboratory Tests 07/01/18 22:17 EKG EKG @ 2212 NSR, HR 79, QRS 86, QTc 439. OH 228 No acute ischemic changes noted [] Radiology/Procedures Radiology/Procedures PROCEDURE: PORTABLE CHEST 1V AP portable chest radiograph 07/01/2018 Clinical History: Chest pain since earlier in the day. An AP erect portable digital radiograph of the chest was obtained. Comparison study is dated 05/26/2018. The cardiac silhouette is normal in size. The thoracic aorta is minimally tortuous. No acute pulmonary infiltrate is seen. No pneumothorax or pleural effusion is noted. The osseous structures are unchanged. Impression: No acute abnormality is seen. Electronically signed by: Arron Martin MD (07/01/2018 11:26 PM) [facility] Course & Med Decision Making Course & Med Decision Making Pertinent Labs and Imaging studies reviewed. (See chart for details) [] Dragon Disclaimer Dragon Disclaimer This electronic medical record was generated, in whole or in part, using a voice recognition dictation system. Departure Departure Impression: Primary Impression: Chest pain Disposition: 09 ADMITTED INPATIENT Admitting Physician: Henny Stuart Condition: STABLE Referrals: HENNY STUART MD (PCP) Problem Qualifiers Primary Impression: Chest pain Chest pain type: unspecified Qualified Codes: R07.9 - Chest pain, unspecified TERRENCE WU DO Jul 01, 2018 22:23
[2018-07-01] MEDS ORDERED: FAMOTIDINE 20 MG/2 ML VIAL IVP ONE (22:30)
[2018-07-01] MEDS ORDERED: LIDO:MAALOX 1:1 20 ML SINGLE DOSE. PO ONE (22:30)
[2018-07-01] MEDS ORDERED: fentaNYL PF VIAL 100 MCG/2 ML VIAL IV ONE (22:30)
[2018-07-01 22:31] LABS: BASO # 0.1 x10^3/uL (0.0-0.2); BASO % 1 % (0-3); EOS # 0.2 x10^3/uL (0.0-0.7); EOS % 2 % (0-3); HEMATOCRIT 39.4 % (36.0-47.0); HEMOGLOBIN 13.8 g/dL (12.0-15.5); LYMPH # 3.4 x10^3/uL (1.0-4.8); LYMPH % 34 % (24-48); MEAN CORPUSCULAR HEMOGLOBIN 31 pg (25-35); MEAN CORPUSCULAR HGB CONC 35 g/dL (31-37); MEAN CORPUSCULAR VOLUME 90 fL (79-100); MONO # 0.4 x10^3/uL (0.0-1.1); MONO % 4 % (0-9); NEUT % 60 % (31-73); PLATELET COUNT 284 x10^3/uL (140-400); RED BLOOD COUNT 4.41 x10^6/uL (3.50-5.40); RED CELL DISTRIBUTION WIDTH 13.2 % (11.5-14.5)
[2018-07-01 22:40] LABS: PROTHROMBIN TIME PATIENT 13.1 SEC (11.7-14.0)
[2018-07-01 22:41] LABS: CALCIUM 9.5 mg/dL (8.5-10.1); CREATININE 0.8 mg/dL (0.6-1.0); GFR 75.6; POTASSIUM 3.8 mmol/L (3.5-5.1)
[2018-07-01 22:46] LABS: ALBUMIN 3.7 g/dL (3.4-5.0); ALBUMIN/GLOBULIN RATIO 0.8 (1.0-1.7); MAGNESIUM 1.9 mg/dL (1.8-2.4); TOTAL BILIRUBIN 0.3 mg/dL (0.2-1.0); TOTAL PROTEIN 8.5 g/dL (6.4-8.2)
--- NOTE | 2018-07-01 23:30 | RAD ---
AP portable chest radiograph 07/01/2018 Clinical History: Chest pain since earlier in the day. An AP erect portable digital radiograph of the chest was obtained. Comparison study is dated 05/26/2018. The cardiac silhouette is normal in size. The thoracic aorta is minimally tortuous. No acute pulmonary infiltrate is seen. No pneumothorax or pleural effusion is noted. The osseous structures are unchanged. Impression: No acute abnormality is seen. Electronically signed by: Arron Martin MD (07/01/2018 11:26 PM) [facility]
[2018-07-02] VITALS (9 sets, daily range): BP systolic 97–148; BP diastolic 46–96
[2018-07-02] MEDS ORDERED: ONDANSETRON PF 4 MG/2 ML VIAL. IV PRN (00:15)
[2018-07-02] MEDS ORDERED: IBUP-1060 PO (02:32)
[2018-07-02] MEDS ORDERED: INSU100V13 SQ (02:32)
--- NOTE | 2018-07-02 06:22 | EKG ---
[facility] [address] [place] [address] Test Date: 2018-07-01 Test Time: 22:09:02 Pat Name: DEION OMALLEY Department: Room: 530 1 Gender: F [employer] Operator: : 1965 Requested By: TERRENCE WU Order Number: [id number] Reading MD: Ba La Measurements Intervals [place] Rate: 79 P: 43 TX: 228 QRS: 15 QRSD: 86 T: 40 QT: 382 QTc: 439 Interpretive Statements SINUS RHYTHM PROLONGED TX INTERVAL QRS(T) CONTOUR ABNORMALITY CONSISTENT WITH ANTEROSEPTAL INFARCT PROBABLY OLD ABNORMAL ECG Electronically Signed On 07-06-2018 10:38:55 CDT by Ba La
--- NOTE | 2018-07-02 08:50 | PDOC2 ---
CARDIAC CONSULT DATE OF CONSULT Date of Consult DATE: 07/02/18 TIME: 08:42 REASON FOR CONSULT Reason for Consult: Chest pain REFERRING PHYSICIAN Referring Physician: Ron SOURCE Source: Chart review, Patient HISTORY OF PRESENT ILLNESS HISTORY OF PRESENT ILLNESS This is a 53 yo female admitted for complains of chest pain. Reports that she has been having this chest pain in the last 2 months. She has had multiple hospitalization in regards to this and she was noted with normal stress test 2017. Reports on intermittent nausea and at times some SOA but no complains of palpitations. Her CP is described as sharp that goes to her bilateral shoulders then to her back. She thinks it is not her heart and appears to some extent is reproducible with mobility. Her mobility has been decreased but no significant complains of exertional CP but could not estimate her degree of endurance since she does not mobilize herself as much. Verbalized compliance with her medications. No recent falls or injury. No recent pulmonary infections. PAST MEDICAL HISTORY Past Medical History Cardiovascular: CAD, HTN, [place] (x2) Pulmonary: Bronchitis CENTRAL NERVOUS SYSTEM: Other (intermittent tension SANCHEZ) GI: Diverticulosis, GERD, C-diff Heme/Onc: Cancer (cervical) Hepatobiliary: DORADO Psych: Anxiety, Depression Musculoskeletal: low back pain, Osteoarthritis Rheumatologic: No pertinent hx Infectious disease: No pertinent hx ENT: periodontal disease Renal/: No pertinent hx Endocrine: Diabetes (2), Hypothyroidism Dermatology: No pertinent hx PAST SURGICAL HISTORY Past Surgical History Cholecystectomy, Hysterectomy, Other (PCI stent x 2-Cx and mid LAD separate occasions) FAMILY HISTORY Family History: Coronary Artery Disease SOCIAL HISTORY Social History Social History Smoke: No (quit) ALCOHOL: none Drugs: Marijuana Lives: with Family CURRENT MEDICATIONS CURRENT MEDICATIONS Current Medications Medications (Trade) Dose Ordered Sig/Vincent Route PRN Reason Start Time Stop Time Status Last Admin Dose Admin Aspirin (Kayla Aspirin) 325 mg 1X ONCE PO 07/01/18 22:15 07/01/18 22:16 DC 07/01/18 22:30 Fentanyl Citrate (Fentanyl 2ml Vial) 50 mcg 1X ONCE IV 07/01/18 22:30 07/01/18 22:31 DC 07/01/18 22:31 Multi-Ingredient Mouthwash/Gargle (Gi Cocktail) 20 ml 1X ONCE PO 07/01/18 22:30 07/01/18 22:31 DC 07/01/18 22:34 Famotidine (Pepcid Vial) 20 mg 1X ONCE IVP 07/01/18 22:30 07/01/18 22:31 DC 07/01/18 22:34 ALLERGIES ALLERGIES: Coded Allergies: Sulfa (Sulfonamide Antibiotics) (Verified Allergy, Severe, GENERALIZED RASH, 11/03/16) doxycycline (Verified Allergy, Severe, BLISTERS ON SKIN - INTERNALLY FELT LIKE SHE WAS ON FIRE, 11/03/16) hydrochlorothiazide (Verified Adverse Reaction, Severe, HEART PALPITATIONS , 11/03/16) morphine (Verified Adverse Reaction, Severe, SEVERE HEADACE, 11/03/16) ROS Review of System 14 point ROS evaluated with pertinent positives noted per HPI PHYSICAL EXAM General: Alert, Oriented X3, Cooperative, No acute distress HEENT: Atraumatic, Mucous membr. moist/pink Lungs: Clear to auscultation, Normal air movement Heart: Regular rate (SR), Normal S1, Normal S2, No murmurs Abdomen: Soft, No tenderness Extremities: No cyanosis, No edema Skin: No breakdown, No significant lesion Neuro: Normal speech, Sensation intact Psych/Mental Status: Mental status NL, Mood NL MUSCULOSKELETAL: Osteoarthritic changes both hands VITALS VITALS Vital Signs Date Time Temp Pulse Resp B/P (MAP) Pulse Ox O2 Delivery O2 Flow Rate FiO2 07/02/18 07:37 Room Air 07/02/18 02:38 97.6 80 17 117/86 (96) 93 97.6 LABS Lab: Laboratory Tests Test 07/01/18 22:17 07/02/18 03:55 07/02/18 07:20 White Blood Count 10.0 x10^3/uL (4.0-11.0) Red Blood Count 4.41 x10^6/uL (3.50-5.40) Hemoglobin 13.8 g/dL (12.0-15.5) Hematocrit 39.4 % (36.0-47.0) Mean Corpuscular Volume 90 fL (79-100) Mean Corpuscular Hemoglobin 31 pg (25-35) Mean Corpuscular Hemoglobin Concent 35 g/dL (31-37) Red Cell Distribution Width 13.2 % (11.5-14.5) Platelet Count 284 x10^3/uL (140-400) Neutrophils (%) (Auto) 60 % (31-73) Lymphocytes (%) (Auto) 34 % (24-48) Monocytes (%) (Auto) 4 % (0-9) Eosinophils (%) (Auto) 2 % (0-3) Basophils (%) (Auto) 1 % (0-3) Neutrophils # (Auto) 6.0 x10^3uL (1.8-7.7) Lymphocytes # (Auto) 3.4 x10^3/uL (1.0-4.8) Monocytes # (Auto) 0.4 x10^3/uL (0.0-1.1) Eosinophils # (Auto) 0.2 x10^3/uL (0.0-0.7) Basophils # (Auto) 0.1 x10^3/uL (0.0-0.2) Prothrombin Time 13.1 SEC (11.7-14.0) Prothromb Time International Ratio 1.0 (0.8-1.1) Sodium Level 138 mmol/L (136-145) Potassium Level 3.8 mmol/L (3.5-5.1) Chloride Level 100 mmol/L (98-107) Carbon Dioxide Level 28 mmol/L (21-32) Anion Gap 10 (6-14) Blood Urea Nitrogen 22 mg/dL (7-20) Creatinine 0.8 mg/dL (0.6-1.0) Estimated GFR (Cockcroft-Gault) 75.6 BUN/Creatinine Ratio 28 (6-20) Glucose Level 151 mg/dL (70-99) Calcium Level 9.5 mg/dL (8.5-10.1) Magnesium Level 1.9 mg/dL (1.8-2.4) Total Bilirubin 0.3 mg/dL (0.2-1.0) Aspartate Amino Transf (AST/SGOT) 24 U/L (15-37) Alanine Aminotransferase (ALT/SGPT) 41 U/L (14-59) Alkaline Phosphatase 118 U/L (46-116) Creatine Kinase 44 U/L (26-192) Troponin I Quantitative < 0.017 ng/mL (0.000-0.055) < 0.017 ng/mL (0.000-0.055) < 0.017 ng/mL (0.000-0.055) DL-Acd-M-Type Natriuretic Peptide 7 pg/mL (0-124) Total Protein 8.5 g/dL (6.4-8.2) Albumin 3.7 g/dL (3.4-5.0) Albumin/Globulin Ratio 0.8 (1.0-1.7) Lipase 160 U/L (73-393) ECHOCARDIOGRAM ECHOCARDIOGRAM <Conclusion> The left ventricular systolic function is normal. The Ejection Fraction is estimated at 65-70%. Transmitral Doppler flow pattern is Grade I-abnormal relaxation pattern. Doppler and Color Flow revealed trace tricuspid valve regurgitation. The PA pressure was estimated at 25 mmHg. There is no evidence of significant pericardial effusion. DATE: 03/13/15 1105 STRESS TEST STRESS TEST Conclusion 1. No EKG evidence of stressed induced ischemia. 2. Nuclear imaging shows no clear evidence of reversible ischemia or infarct. 3. Very small area of anterior wall thinning that is not diagnostic of ischemia. 4. Normal left ventricular systolic function with an ejection fraction of greater than 70% 5. Moderately low risk Lexiscan nuclear stress test. DATE: 10/31/17 1407 HEART CATH HEART CATH Conclusion #1. Three-vessel coronary artery disease #2. Patent stent noted in the circumflex system with mild in-stent restenosis #3. Successful percutaneous intervention of mid LAD with a drug-eluting for critical stenosis #4. Moderate RCA disease noted. #5. Normal left ventricular function. Recommendations Smoking Cessation Cardiac Rehabilitation Referral Daily ASA with Plavix for at least one year Aggressive Medical Therapy Weight Loss Reduction Program Medical Therapy 04/17/14 ASSESSMENT/PLAN ASSESSMENT/PLAN 1. Chest pain 2. CAD: 3VD with stent placement to LAD in 2013 and prior LCx stent as well in the past 3. HTN: controlled 4. HLP: better by comparison, close to goal 5. DM2: A1C 6.0 6. Hypothyroidism 7. GERD: controlled Recommendations 1. Although her CP appears to be atypical, She has had multiple hospitalization with persistent CP despite control of extracardiac issues. This very could be underlying UA. With her significant cardiac risk factors with +CAD will proceed with C and rule out any ischemia. Risks and benefits discussed and agreeeable to proceed. 2. Continue secondary prevention measures including home ASA and plavix. ELA JACQUES APRN Jul 02, 2018 08:50
[2018-07-02] MEDS ORDERED: INFLUENZA VAX SCREEN BY RX. MC ONE (09:00)
[2018-07-02] MEDS ORDERED: IV NORMAL SALINE 1000ML BAG 1,000 ML IV ONE (09:00)
--- NOTE | 2018-07-02 09:40 | PDOC ---
Provider Note Provider Note H&P to be dictated. #[id number]. ROBERTO STUART MD Jul 02, 2018 09:39
[2018-07-02] MEDS ORDERED: DEXTROSE 50% 25 GM / 50ML DISP.SYRIN. IV PRN (09:45)
[2018-07-02] MEDS ORDERED: CALCIUM CARBONATE 500 MG TAB.CHEW PO PRN (10:00)
[2018-07-02] MEDS: IV NORMAL SALINE 1000ML BAG 1,000 ML IV SCH ×2 (10:15→23:40)
[2018-07-02] MEDS: CHOLECALCIFEROL (VITAMIN D3) 1,000 UNIT TABLET PO SCH (10:30)
[2018-07-02] MEDS: ASPIRIN CHEWABLE 81 MG TABLET. PO SCH (10:30)
[2018-07-02] MEDS: LISINOPRIL 20 MG TABLET PO SCH (10:30)
[2018-07-02] MEDS: LEVOTHYROXINE 50 MCG TABLET PO SCH (10:30)
[2018-07-02] MEDS: MULTIVITAMIN with MINERAL TABLET. PO SCH (10:30)
[2018-07-02] MEDS: PANTOPRAZOLE 40 MG TABLET.DR. PO SCH (10:30)
[2018-07-02] MEDS: LINAGLIPTIN 5 MG TABLET PO SCH (10:30)
[2018-07-02] MEDS: CETIRIZINE HCL 10 MG TABLET. PO SCH (10:30)
[2018-07-02] MEDS: LACTOBACILLUS RHAMNOSUS GG 1 CAPSULE. PO SCH (10:30)
[2018-07-02] MEDS: METOPROLOL SUCC 24HR ER 100 MG TAB.ER.24H. PO SCH (10:30)
[2018-07-02] MEDS: CHLORTHALIDONE 25 MG TABLET. PO SCH (10:30)
[2018-07-02] MEDS: CLOPIDOGREL BISULFATE 75 MG TABLET PO SCH (10:30)
--- NOTE | 2018-07-02 11:04 | HP ---
ADMIT DATE: 07/01/2018 REASON FOR ADMISSION TO THE HOSPITAL: Chest pain, angina. The patient has known history of coronary artery disease. HISTORY OF PRESENT ILLNESS: The patient is a 53-year-old female who has history of coronary artery disease, previous stents, so far she has 3 stents, last stent was placed 4 years ago at [place]. Last cardiac catheterization is close to a year ago. She was having chest pain, mostly anterior part of chest, on and off, getting progressively worse, going to the left arm, came to the Emergency Room. EKG was negative for ischemia. Troponin was negative, was admitted for further investigation and treatment. Seen by Cardiology, she is going to go for cardiac catheterization today. PAST MEDICAL HISTORY: Coronary artery disease, hypertension, OH, bronchitis, diabetes, diverticulosis, GERD, C. diff, cervical cancer, liver problems, fatty liver, depression, diabetes, hypothyroidism. PAST SURGICAL HISTORY: Gallbladder surgery, hysterectomy. She has a total of 3 stents, 2 in the circumflex and one in LAD on 2 separate occasions, last stent was 4 years ago. FAMILY HISTORY: Positive for coronary artery disease, diabetes and hypertension. SOCIAL HISTORY: Ex-smoker, quit some time back. Smoked for 20 years. Denies alcohol. Social marijuana. ALLERGIES: ALLERGY to SULFA, DOXYCYCLINE, HYDROCHLOROTHIAZIDE AND MORPHINE, CAUSES HIVES. MEDICATIONS AT HOME: Fish oil 2 daily, ibuprofen 80 mg q.8, insulin sliding scale, aspirin 81 mg daily, atorvastatin 40 mg daily, calcium twice a day, chlorthalidone 25 mg daily, vitamin D 2000 daily, Plavix 75 mg daily, Levemir insulin 28 units at bedtime, eyedrops for glaucoma, latanoprost 1 drop at bedtime, levothyroxine 25 mcg daily, lisinopril 40 mg daily, loratadine 10 mg daily, metoprolol XL 100 mg daily, vitamin daily, nortriptyline 25 mg daily, Prilosec 40 mg daily, Januvia 100 mg daily, CoQ 400 mg at bedtime. REVIEW OF SYSTEMS: CARDIAC: Has some chest pain, now subsided. GASTROINTESTINAL: No nausea or vomiting. NEUROLOGICAL: No weakness. Rest of the 14-system reviewed and negative. PHYSICAL EXAMINATION: GENERAL: The patient is not in any distress, comfortable lying in bed. VITAL SIGNS: Temperature 97, pulse 82, respirations 24, blood pressure 101/81 and 97 on room air. HEENT: Head is atraumatic. Pupils equal. Oral cavity: No congestion. NECK: Supple. Thyroid not enlarged. JVD not elevated. CHEST: Symmetrical. CARDIOVASCULAR: S1, S2. No murmurs. LUNGS: Clear to auscultation. No wheezing. ABDOMEN: Soft, no mass palpable. EXTERNAL GENITALIA: No Paz. RECTAL: Deferred. EXTREMITIES: No calf tenderness, no edema. NEUROLOGIC: Cranial nerves intact. Power 5/5 in all extremities. Moving all extremities. FOOT: No edema. Pulses 1+. LABORATORY DATA: Shows a white count of 10, hemoglobin 14, platelets 284. INR is 1.1. Electrolytes show sodium 138, potassium 3.8, chloride 100, bicarbonate 28, anion gap 10, BUN 22, creatinine 0.8, glucose 151, magnesium 1.9. LFTs were normal. Troponin was 0.017, all three of the troponins. Chest x-ray was negative. EKG done, report is pending. FINAL IMPRESSION: 1. Unstable angina. 2. Known history of coronary artery disease, had 3 cardiac stents, 2 in circumflex, 1 in LAD, last stent was 4 years ago, last cardiac catheterization was one year ago, patent stents at that time. 3. Diabetes. 4. Hypertension. 5. Hyperlipidemia. 6. Anxiety with depression. 7. Hypothyroidism. PLAN: At this time, was to admit to hospital. Serial cardiac enzymes, cyber special agent, EKG, scheduled for cardiac catheterization today and further recommendations to follow. The patient is already on aspirin and Plavix, and see how she improves. ROBERTO STUART MD DR: DANUTA/shannen JOB#: [id number] / [id number]
[2018-07-02] MEDS: fentaNYL PF VIAL 100 MCG/2 ML VIAL IV PRN ×4 (11:31→21:49)
[2018-07-02] MEDS: INSULIN LISPRO 300 UNITS/3 ML INSULN.PEN. SQ SCH ×2 (12:00→17:00)
[2018-07-02] MEDS ORDERED: LIDOCAINE 1% PF 30 ML VIAL. ONE (12:20)
[2018-07-02] MEDS ORDERED: MIDAZOLAM HCL/PF 2 MG/2 ML VIAL. ONE (12:20)
[2018-07-02] MEDS ORDERED: IOHEXOL 300 MG/ML 100ML VIAL. ONE (12:20)
[2018-07-02] MEDS ORDERED: fentaNYL PF VIAL 100 MCG/2 ML VIAL ONE (12:20)
--- NOTE | 2018-07-02 15:21 | PDOC ---
MODERATE SEDATION ASSESSMENT RISKS/ALTERNATIVES Risks/Alternatives Risks and alternatives of this type of sedation and procedure discussed with: RISK/ALTERNATIVES: Patient H & P ON CHART H & P H & P on chart and reviewed for co-morbid conditions and appropriate labs. H&P ON CHART: Yes STATUS PREG STATUS ASSESSED: Yes MEDS/ALLERGIES REVIEWED Meds/Allergies Reviewed Medications and Allergies including time and route of recently administered narcotics and sedatives. MEDS/ALLERGIES REVIEWED: Yes ASA RATING ASA RATING: II AIRWAY ASSESSMENT Airway Assessment Airway patency, oral function limitations, presence of caps, crowns, dentures, partials, and ability to extend neck assessed. AIRWAY ASSESSMENT: Yes MALLAMPATI SCORE MALLAMPATI SCORE: II PRE-SEDATION ASSESSMENT PRE-SEDATION ASSESSMENT: Yes CRISTY QUICK MD Jul 02, 2018 15:21
[2018-07-02] MEDS ORDERED: HEPARIN for IV BOLUS 10,000 UNIT/10 ML VIAL. ONE (15:48)
[2018-07-02] MEDS ORDERED: LIDOCAINE 1% PF 30 ML VIAL. INJ ONE (16:15)
[2018-07-02] MEDS ORDERED: IODIXANOL 320 MG/ML 100 ML VIAL. IART ONE (16:15)
[2018-07-02] MEDS ORDERED: MIDAZOLAM HCL/PF 2 MG/2 ML VIAL. IV ONE (16:15)
[2018-07-02] MEDS ORDERED: HEPARIN for IV BOLUS 10,000 UNIT/10 ML VIAL. IV ONE (16:15)
[2018-07-02] MEDS ORDERED: fentaNYL PF VIAL 100 MCG/2 ML VIAL IV ONE (16:15)
[2018-07-02] MEDS ORDERED: IV NORMAL SALINE 1000ML BAG 1,000 ML IV SCH (17:29)
--- NOTE | 2018-07-02 17:29 | PDOC4 ---
PROCEDURE Procedure Brief cath note due to inablility to enter report into the computer. Left system with no lesions greater than 25%. Widely patent stents. RCA lesion of 40-45%. with normal flow reserve measurement. Normal LV systolic function. Continue medical treatment. Discussed with the patient. Full report to follow. CRISTY QUICK MD Jul 02, 2018 17:28
[2018-07-02] MEDS ORDERED: 0.9 % SODIUM CHLORIDE 10 ML DISP.SYRIN. IV PRN (17:30)
[2018-07-02] MEDS ORDERED: NITROGLYCERIN SUBLINGUAL 0.4 MG BOTTLE OF 25. SL PRN (17:30)
[2018-07-02] MEDS ORDERED: INSULIN GLARGINE 300 UNITS/3 ML INSULN.PEN. SQ SCH (21:00)
[2018-07-02] MEDS ORDERED: UBIDECARENONE 400 MG PO SCH (21:00)
[2018-07-02] MEDS ORDERED: ATORVASTATIN CALCIUM 40 MG TABLET. PO SCH (21:00)
[2018-07-02] MEDS ORDERED: NORTRIPTYLINE 25 MG CAPSULE PO SCH (21:00)
[2018-07-02] MEDS ORDERED: LATANOPROST 0.005% OPHTH SOLUTION 2.5ML BOTTLE. OU SCH (21:00)
[2018-07-03 03:00] VITALS: BP 120/90
[2018-07-03 06:04] LABS: CALCIUM 8.9 mg/dL (8.5-10.1); CREATININE 0.6 mg/dL (0.6-1.0); GFR 105.4; POTASSIUM 3.7 mmol/L (3.5-5.1)
[2018-07-03 06:13] LABS: CHOLESTEROL/HDL RATIO 6.4
[2018-07-03] MEDS: IV NORMAL SALINE 1000ML BAG 1,000 ML IV SCH (06:15)
[2018-07-03 07:00] VITALS: BP 112/82
--- NOTE | 2018-07-03 09:14 | DISCH ---
DISCHARGE INSTRUCTIONS Condition on Discharge Condition on Discharge: Stable Activity After Discharge Activity Instructions for Disc: Resume previous activity Exercise Instruction after Dis: Walk 15 min, 3 x per day, Progress as tolerated Driving Instructions after Dis: Do not drive today Weight Bearing Status after Di: As tolerated Diet after Discharge Diet after Discharge: Cardiac, Diabetic No Calorie Level Additional Diet Restrictions: 0800 Lee ADA Diet Texture: Regular Swallowing Supervision: None needed Checks after Discharge Checks after discharge: Check blood sugar, ac/hs Contacting the DR. after DC Call your doctor for: Concerns you may have Follow-Up Follow up with: see in 5 days. Treatment/Equipment after DC Adaptive Equipment Issued: None JIM KILLIAN MD Jul 03, 2018 09:13
[2018-07-03] MEDS: LEVOTHYROXINE 50 MCG TABLET PO SCH (09:38)
[2018-07-03] MEDS: INSULIN LISPRO 300 UNITS/3 ML INSULN.PEN. SQ SCH ×2 (09:38→12:00)
[2018-07-03] MEDS: PANTOPRAZOLE 40 MG TABLET.DR. PO SCH (09:38)
[2018-07-03] MEDS: ASPIRIN CHEWABLE 81 MG TABLET. PO SCH (09:39)
[2018-07-03] MEDS: CLOPIDOGREL BISULFATE 75 MG TABLET PO SCH (09:39)
[2018-07-03] MEDS: LACTOBACILLUS RHAMNOSUS GG 1 CAPSULE. PO SCH (09:39)
[2018-07-03] MEDS: LISINOPRIL 20 MG TABLET PO SCH (09:40)
[2018-07-03] MEDS: CHLORTHALIDONE 25 MG TABLET. PO SCH (09:40)
[2018-07-03] MEDS: METOPROLOL SUCC 24HR ER 100 MG TAB.ER.24H. PO SCH (09:41)
[2018-07-03] MEDS: MULTIVITAMIN with MINERAL TABLET. PO SCH (09:41)
[2018-07-03] MEDS: LINAGLIPTIN 5 MG TABLET PO SCH (09:42)
[2018-07-03] MEDS: CHOLECALCIFEROL (VITAMIN D3) 1,000 UNIT TABLET PO SCH (09:42)
[2018-07-03] MEDS: CETIRIZINE HCL 10 MG TABLET. PO SCH (09:42)
--- NOTE | 2018-07-03 09:45 | PDOC ---
IM PROGRESS NOTES- Subjective Subjective Complaints of headaches. Denies any chest pains or dyspnea. Objective Vitals Vital Signs Date Time Temp Pulse Resp B/P (MAP) Pulse Ox O2 Delivery O2 Flow Rate FiO2 07/03/18 07:00 97.8 96 18 112/82 (92) 95 Room Air 97.8 07/02/18 16:16 2.0 Input & Output Intake and Output 07/03/18 07:00 Intake Total 1220 ml Balance 1220 ml Intake IV Total 1220 ml # Voids 8 Physical Exam Physical Exam General appearance - alert,well appearing, and in no distress and oriented to person, place, and time Mental Status - alert, oriented to person, place, and time, affect appropriate to mood Head - normal Chest - clear to auscultation, no wheezes, rales or rhonchi, symmetric air entry Heart - S1 and S2 normal Abdomen - soft, nontender, nondistended, no masses or organomegaly Neurological - alert and oriented Musculoskeletal - no muscular tenderness noted Extremities - no pedal edema Skin - warm and dry Labs Laboratory Tests Test 07/01/18 22:17 07/02/18 03:55 07/02/18 07:20 07/03/18 05:10 White Blood Count 10.0 x10^3/uL (4.0-11.0) Red Blood Count 4.41 x10^6/uL (3.50-5.40) Hemoglobin 13.8 g/dL (12.0-15.5) Hematocrit 39.4 % (36.0-47.0) Mean Corpuscular Volume 90 fL (79-100) Mean Corpuscular Hemoglobin 31 pg (25-35) Mean Corpuscular Hemoglobin Concent 35 g/dL (31-37) Red Cell Distribution Width 13.2 % (11.5-14.5) Platelet Count 284 x10^3/uL (140-400) Neutrophils (%) (Auto) 60 % (31-73) Lymphocytes (%) (Auto) 34 % (24-48) Monocytes (%) (Auto) 4 % (0-9) Eosinophils (%) (Auto) 2 % (0-3) Basophils (%) (Auto) 1 % (0-3) Neutrophils # (Auto) 6.0 x10^3uL (1.8-7.7) Lymphocytes # (Auto) 3.4 x10^3/uL (1.0-4.8) Monocytes # (Auto) 0.4 x10^3/uL (0.0-1.1) Eosinophils # (Auto) 0.2 x10^3/uL (0.0-0.7) Basophils # (Auto) 0.1 x10^3/uL (0.0-0.2) Prothrombin Time 13.1 SEC (11.7-14.0) Prothromb Time International Ratio 1.0 (0.8-1.1) Sodium Level 138 mmol/L (136-145) 140 mmol/L (136-145) Potassium Level 3.8 mmol/L (3.5-5.1) 3.7 mmol/L (3.5-5.1) Chloride Level 100 mmol/L (98-107) 103 mmol/L (98-107) Carbon Dioxide Level 28 mmol/L (21-32) 29 mmol/L (21-32) Anion Gap 10 (6-14) 8 (6-14) Blood Urea Nitrogen 22 mg/dL (7-20) 16 mg/dL (7-20) Creatinine 0.8 mg/dL (0.6-1.0) 0.6 mg/dL (0.6-1.0) Estimated GFR (Cockcroft-Gault) 75.6 105.4 BUN/Creatinine Ratio 28 (6-20) Glucose Level 151 mg/dL (70-99) 111 mg/dL (70-99) Calcium Level 9.5 mg/dL (8.5-10.1) 8.9 mg/dL (8.5-10.1) Magnesium Level 1.9 mg/dL (1.8-2.4) Total Bilirubin 0.3 mg/dL (0.2-1.0) Aspartate Amino Transf (AST/SGOT) 24 U/L (15-37) Alanine Aminotransferase (ALT/SGPT) 41 U/L (14-59) Alkaline Phosphatase 118 U/L (46-116) Creatine Kinase 44 U/L (26-192) Troponin I Quantitative < 0.017 ng/mL (0.000-0.055) < 0.017 ng/mL (0.000-0.055) < 0.017 ng/mL (0.000-0.055) ZA-Qfm-S-Type Natriuretic Peptide 7 pg/mL (0-124) Total Protein 8.5 g/dL (6.4-8.2) Albumin 3.7 g/dL (3.4-5.0) Albumin/Globulin Ratio 0.8 (1.0-1.7) Lipase 160 U/L (73-393) Triglycerides Level 372 mg/dL (0-150) Cholesterol Level 205 mg/dL (0-200) LDL Cholesterol, Calculated 99 mg/dL (0-100) VLDL Cholesterol, Calculated 74 mg/dL (0-40) Non-HDL Cholesterol Calculated 173 mg/dL (0-129) HDL Cholesterol 32 mg/dL (40-60) Cholesterol/HDL Ratio 6.4 Thyroid Stimulating Hormone (TSH) 3.576 uIU/mL (0.358-3.74) Laboratory Tests Test 07/03/18 05:10 Sodium Level 140 mmol/L (136-145) Potassium Level 3.7 mmol/L (3.5-5.1) Chloride Level 103 mmol/L (98-107) Carbon Dioxide Level 29 mmol/L (21-32) Anion Gap 8 (6-14) Blood Urea Nitrogen 16 mg/dL (7-20) Creatinine 0.6 mg/dL (0.6-1.0) Estimated GFR (Cockcroft-Gault) 105.4 Glucose Level 111 mg/dL (70-99) Calcium Level 8.9 mg/dL (8.5-10.1) Triglycerides Level 372 mg/dL (0-150) Cholesterol Level 205 mg/dL (0-200) LDL Cholesterol, Calculated 99 mg/dL (0-100) VLDL Cholesterol, Calculated 74 mg/dL (0-40) Non-HDL Cholesterol Calculated 173 mg/dL (0-129) HDL Cholesterol 32 mg/dL (40-60) Cholesterol/HDL Ratio 6.4 Thyroid Stimulating Hormone (TSH) 3.576 uIU/mL (0.358-3.74) Meds Current Medications Aspirin (Children'S Aspirin) 81 mg DAILY PO ; Start 07/02/18 at 10:30 Atorvastatin Calcium (Lipitor) 40 mg QHS PO Last administered on 07/02/18at 21: 38; Start 07/02/18 at 21:00 Calcium Carbonate/ Glycine (Tums) 500 mg PRN Q3HRS PRN PO INDIGESTION; Start at 10:00 Cetirizine HCl (ZyrTEC) 10 mg DAILY PO ; Start 07/02/18 at 10:30 Chlorthalidone (Thalitone) 12.5 mg DAILY PO ; Start 07/02/18 at 10:30 Clopidogrel Bisulfate (Plavix) 75 mg DAILY PO ; Start 07/02/18 at 10:30 Dextrose (Dextrose 50%-Water Syringe) 12.5 gm PRN Q15MIN PRN IV SEE COMMENTS Last administered on 07/02/18at 16:58; Start 07/02/18 at 09:45 Fentanyl Citrate (Fentanyl 2ml Vial) 12.5 mcg 1X ONCE IV Last administered on 07/02/18at 16:16; Start 07/02/18 at 16:15; Stop 07/02/18 at 16:16; Status DC Fentanyl Citrate (Fentanyl 2ml Vial) 100 mcg STK-MED ONCE .ROUTE ; Start at 12:20; Stop 07/02/18 at 12:21; Status DC Heparin Sodium (Porcine) (Heparin Sodium) 4,000 unit 1X ONCE IV Last administered on 07/02/18at 16:19; Start 07/02/18 at 16:15; Stop 07/02/18 at 16:16 ; Status DC Heparin Sodium (Porcine) (Heparin Sodium) 10,000 unit STK-MED ONCE .ROUTE ; Start 07/02/18 at 15:48; Stop 07/02/18 at 15:49; Status DC Heparin Sodium/ Sodium Chloride 500 ml @ As Directed STK-MED ONCE .ROUTE ; Start 07/02/18 at 12:20; Stop 07/02/18 at 12:21; Status DC Heparin Sodium/ Sodium Chloride (HEPARIN for ARTERIAL LINE FLUSH) 1,000 unit 1X ONCE IART Last administered on 07/02/18at 16:14; Start 07/02/18 at 16:15; Stop 07/02/18 at 16:16; Status DC Insulin Glargine (Lantus) 28 units QHS SQ Last administered on 07/02/18at 21:45 ; Start 07/02/18 at 21:00 Insulin Human Lispro (HumaLOG) 0-7 UNITS TIDWMEALS SQ ; Start 07/02/18 at 12:00 Iodixanol (Visipaque 320) 109 ml 1X ONCE IART Last administered on 07/02/18at 16:14; Start 07/02/18 at 16:15; Stop 07/02/18 at 16:16; Status DC Iohexol (Omnipaque 300 Mg/ml) 100 ml STK-MED ONCE .ROUTE ; Start 07/02/18 at 12: 20; Stop 07/02/18 at 12:21; Status DC Lactobacillus Rhamnosus (Culturelle) 1 cap DAILY PO ; Start 07/02/18 at 10:30 Latanoprost (Xalatan) 1 drop QHS OU Last administered on 07/02/18at 21:38; Start 07/02/18 at 21:00 Levothyroxine Sodium (Synthroid) 50 mcg DAILY07 PO ; Start 07/02/18 at 10:30 Lidocaine HCl (Xylocaine 1% Pf 30ml Vial) 18 ml 1X ONCE INJ Last administered on 07/02/18at 16:14; Start 07/02/18 at 16:15; Stop 07/02/18 at 16:16; Status DC Lidocaine HCl (Xylocaine 1% Pf 30ml Vial) 30 ml STK-MED ONCE .ROUTE ; Start at 12:20; Stop 07/02/18 at 12:21; Status DC Linagliptin (Tradjenta) 5 mg DAILY PO ; Start 07/02/18 at 10:30 Lisinopril (Prinivil) 40 mg DAILY PO ; Start 07/02/18 at 10:30 Metoprolol Succinate (Toprol Xl) 100 mg DAILY PO ; Start 07/02/18 at 10:30 Midazolam HCl (Versed) 1 mg 1X ONCE IV Last administered on 07/02/18at 16:15; Start 07/02/18 at 16:15; Stop 07/02/18 at 16:16; Status DC Midazolam HCl (Versed) 2 mg STK-MED ONCE .ROUTE ; Start 07/02/18 at 12:20; Stop 07/02/18 at 12:21; Status DC Multivitamins (Thera M Plus) 1 tab DAILY PO ; Start 07/02/18 at 10:30 Nitroglycerin (Nitrostat) 0.4 mg PRN Q5MIN PRN SL CHEST PAIN; Start 07/02/18 at 17:30 Non-Formulary Medication (Ubidecarenone (Co Q-10)) 400 mg HS PO ; Start at 21:00; Status UNV Nortriptyline HCl (Pamelor) 25 mg QHS PO Last administered on 07/02/18at 21:38; Start 07/02/18 at 21:00 Pantoprazole Sodium (Protonix) 40 mg DAILYAC PO ; Start 07/02/18 at 10:30 Sodium Chloride 1,000 ml @ 75 mls/hr [id number] IV ; Start 07/02/18 at 17:29; Stop 07/02/18 at 21:28; Status DC Sodium Chloride 1,000 ml @ 100 mls/hr Q10H IV Last administered on 07/02/18at 23:40; Start 07/02/18 at 10:15 Sodium Chloride (Normal Saline Flush) 3 ml QSHIFT PRN IV AFTER MEDS AND BLOOD DRAWS; Start 07/02/18 at 17:30 Vitamin D (Vitamin D3) 2,000 unit DAILY PO ; Start 07/02/18 at 10:30 Assessment Assessment 1. Unstable angina. 2. Known history of coronary artery disease, had 3 cardiac stents, 2 in circumflex, 1 in LAD, last stent was 4 years ago, last cardiac catheterization was one year ago, patent stents at that time. 3. Diabetes. 4. Hypertension. 5. Hyperlipidemia. 6. Anxiety with depression. 7. Hypothyroidism. PLAN: Patient is complaining of headaches. Cardiac catheter shows a mild stenosis. Stents are patent. Cardiac catheterization- Left system with no lesions greater than 25%. Widely patent stents. RCA lesion of 40-45%. with normal flow reserve measurement. Normal LV systolic function. Continue medical treatment. Discussed with the patient. does not want any nitroglycerin prescription to take at home as needed. She states that she gets headaches and she does not want to take them in case if she needs it. Patient does not want any Tylenol for her headaches. I have advised her not to take ibuprofen but use Tylenol if she has headaches. The patient is stable and it is okay to discharge her home if okay with Dr. Trimble. Disposition home. For details please refer the transfer forms. Follow with Dr. Sharma in 5 days. Condition at the time of discharge stable. Discharge management 35 minutes. Plan Plan For more details regarding further plans, please refer to the orders. JIM KILLIAN MD Jul 03, 2018 09:45
[2018-07-03 11:00] VITALS: BP 125/86
[2018-07-03 21:13] LABS: HEMOGLOBIN A1C 5.7 % (4.8-5.6)
--- NOTE | 2018-07-05 09:18 | CARD ---
MR#: [id number] Date of Study: 07/02/2018 Ordering Physician: ELA JACQUES, Referring Physician: ROBERTO STUART Tech: RT Vivien (R) APPROVED REPORT Procedures Left heart catheterization Selective coronary angiogram Left ventriculogram IFR measurement of the right coronary artery The patient is a 53-year-old female with a history of coronary artery disease with previous stenting. She was admitted with recurrent episodes of chest pain. Cardiac enzymes were normal. She reported p rogressively increasing amounts of chest pain and therefore cardiac catheterization was recommended f or definitive diagnosis. Risks and benefits were discussed with the patient. She agreed to proceed. After informed consent was obtained the patient was brought to the heart catheterization lab. The are a of the right femoral artery was prepared the usual manner with Betadine, sterile draping and local anesthetic. An 18-gauge needle was used to enter the right femoral artery, a wire placed and a 6 Fren ch sheath placed over the wire. A 6 Israeli JL4 diagnostic catheter was advanced to the ascending aort a and used to engage the left coronary system. Sequential injections in various views were obtained. A 6 Israeli Ron diagnostic catheter was then advanced to the ascending aorta. It was used to enga ge the right coronary artery and sequential injections in various views were obtained. A pigtail cath eter was advanced into ascending aorta and then the left ventricle. A 30 MORRIS left ventriculogram was performed. Pullback pressures were measured and the catheter was removed and the patient. In reviewi ng of the images there was a 40-45% proximal right coronary artery lesion present. Stents in the in t he left system were widely patent. We proceeded to IFR The RCA lesion to exclude the possibility of a significant lesion. 1000 units of heparin was administered. A 6 Israeli JR4 guide with sideholes was advanced to the ascending aorta and used to used to engage right coronary artery. IFR measurements us ing a flow wire were performed on the right coronary lesion. IFR measurement was normal at 0.93. The wire and guide were removed from the patient. Injection of the sheath showed a puncture point at the bifurcation. Therefore a minx system was used to seal the puncture site. The patient was then moved t o the holding area in stable condition. Findings. Hemodynamics. LV 138/4, 12 Aortic root 136/78 Coronaries Left main. The left main was a normal-size vessel with no lesions. Left anterior descending. The LAD was a moderate size vessel. It had previously placed proximal to mi d stenting which was widely patent. Left circumflex. The left circumflex was a moderate size vessel. It had a mid stent which was also wi macho patent. Right coronary artery. The right coronary was a moderate size vessel. The proximal 40-45% lesion. IFR measurements of this lesion were normal at 0.93. Left ventriculogram. Left ventricle showed normal left ventricular systolic function with ejection fr action of greater than 65%. \ <Conclusion> Widely patent stents in the LAD and left circumflex system. Moderate disease in the proximal right coronary artery of 40-45% with a normal IFR of 0.93. Normal left ventricular systolic function. Signed by : Otis Pelayo MD Electronically Approved : 07/05/2018 09:16:48
== END 2018-07-03 14:14 | disposition home or self-care (01) | DRG 287 ==
LOC: ER 21:52 → 5 NORTH 23:59
PROVIDERS: ADMIT Internal Medicine; ATTEND Internal Medicine
PROC: B2111ZZ Fluoroscopy of Multiple Coronary Arteries using Low Osmolar Contrast (ICD-10-PCS; principal; 2018-07-02)
PROC: B2151ZZ Fluoroscopy of Left Heart using Low Osmolar Contrast (ICD-10-PCS; 2018-07-02)
PROC: 4A023N7 Measurement of Cardiac Sampling and Pressure, Left Heart, Percutaneous Approach (ICD-10-PCS; 2018-07-02)
DX: I25.110 Atherosclerotic heart disease of native coronary artery with unstable angina pectoris (principal); E03.9 Hypothyroidism, unspecified; E11.9 Type 2 diabetes mellitus without complications; E78.00 Pure hypercholesterolemia, unspecified; E78.5 Hyperlipidemia, unspecified; F41.8 Other specified anxiety disorders; I10 Essential (primary) hypertension; I25.2 Old myocardial infarction; M54.5 Low back pain; K21.9 Gastro-esophageal reflux disease without esophagitis; K58.9 Irritable bowel syndrome, unspecified; K76.0 Fatty (change of) liver, not elsewhere classified; Z82.49 Family history of ischemic heart disease and other diseases of the circulatory system; Z83.3 Family history of diabetes mellitus; Z85.41 Personal history of malignant neoplasm of cervix uteri; Z87.891 Personal history of nicotine dependence; Z90.710 Acquired absence of both cervix and uterus; Z95.5 Presence of coronary angioplasty implant and graft; F12.90 Cannabis use, unspecified, uncomplicated; F32.9 Major depressive disorder, single episode, unspecified; F41.9 Anxiety disorder, unspecified; K57.90 Diverticulosis of intestine, part unspecified, without perforation or abscess without bleeding; M19.90 Unspecified osteoarthritis, unspecified site; Z90.49 Acquired absence of other specified parts of digestive tract; Z88.1 Allergy status to other antibiotic agents; Z88.5 Allergy status to narcotic agent; Z88.2 Allergy status to sulfonamides; Z88.8 Allergy status to other drugs, medicaments and biological substances
CPT/HCPCS: 36415; 71045; 80048; 80053; 80061; 82550; 83036; 83690; 83735; 83880; 84443; 84484; 85025; 85610; 90471; 90756; 93005; 93458; 93571; 99152; 99153; C1713; C1769; C1887; C1892; G0269; J1644; J1815; J2250; J3010; J7030; J7042; S0028; Q2035

== ENCOUNTER → 2018-08-03 | Outpatient (CLI) | payer MEDICARE ==
[2018-07-27 10:36] VITALS: BP 136/93
[~2018-08-03] MED LIST changes: +IBUP-1060 PO; +INSU100V13 SQ
--- NOTE | 2018-08-03 14:52 | RAD ---
EXAM: AP, oblique and lateral views of the left knee DATE: 08/03/2018 10:27 AM INDICATION: left knee pain, osteoarthritis COMPARISON: No Prior FINDINGS: No evidence of acute fracture or dislocation. Mild medial compartment with fissuring with small tricompartmental osteophytes. No knee joint effusion. Decreased bone mineral density.Small ossification at the intercondylar notch likely joint body versus focal ossification of of Hoffa's fat pad. IMPRESSION: 1. No evidence of acute fracture or dislocation. 2. Left knee joint arthritis with mild medial compartment joint space narrowing. 3. Small ossification at the intercondylar notch likely joint body versus focal ossification of of Hoffa's fat pad. Electronically signed by: Clemente Driver MD (08/03/2018 2:49 PM) [id number]
== END | disposition home or self-care (01) ==
LOC: RAD 10:03
PROVIDERS: ATTEND Internal Medicine
DX: M17.12 Unilateral primary osteoarthritis, left knee (principal)
CPT/HCPCS: 73562

== ENCOUNTER 2018-09-24 18:19 | Emergency (ER) | payer MEDICARE ==
[~2018-09-24] VITALS: Ht 162.6 cm; Wt 81.2 kg
[~2018-09-24 18:19] MED LIST changes: -CHLO25TA PO; +CHLO25TA10 PO; -GEMF600T4 PO; +GEMF600T8 PO; -HYDR-2758 PO; +HYDR-2761 PO; +HYDR-3164 PO; -HYDR-971 PO; -OXYC-323 PO; +OXYC1TAB15 PO
[2018-09-24 18:30] VITALS: BP 141/85
--- NOTE | 2018-09-24 19:22 | PHYS DOC ---
Past Medical History Past Medical History: Anxiety, Arthritis, Bronchitis, CAD, Cancer, Diabetes- Type II, High Cholesterol, Hypertension, Hypothyroid, IBS, [place] Additional Past Medical Histor: CERVICAL CANCER Past Surgical History: Cholecystectomy, Hysterectomy Additional Past Surgical Histo: CARDIAC CATH X3, TOE SX BOTH FEET Alcohol Use: None Drug Use: Marijuana Adult General Chief Complaint Chief Complaint: HAND PROBLEM HPI HPI Patient is a 53 year old female with history of arthritis, hypertension, anxiety, high cholesterol, CAD on Plavix, who presents today complaining of the bruised area on the left hand that she noted 2 hours ago. Patient denies any known injury but she states she does not know if she hit her left hand on the sink. She states she would like to have a venous Doppler of the left hand to make sure she does not have a blood clot. Denies any chest pain or shortness of breath. Review of Systems Review of Systems Constitutional: Denies fever or chills [] Eyes: Denies change in visual acuity, redness, or eye pain [] HENT: Denies nasal congestion or sore throat [] Respiratory: Denies cough or shortness of breath [] Cardiovascular: No additional information not addressed in HPI [] GI: Denies abdominal pain, nausea, vomiting, bloody stools or diarrhea [] : Denies dysuria or hematuria [] Musculoskeletal: Denies back pain or joint pain [] Integument: left hand bruise Neurologic: Denies headache, focal weakness or sensory changes [] All other systems were reviewed and found to be within normal limits, except as documented in this note. Allergies Allergies Allergies Coded Allergies Type Severity Reaction Last Updated Verified Sulfa (Sulfonamide Antibiotics) Allergy Severe GENERALIZED RASH 11/03/16 Yes doxycycline Allergy Severe BLISTERS ON SKIN - INTERNALLY FELT LIKE SHE WAS ON FIRE 11/03/16 Yes hydrochlorothiazide Adverse Reaction Severe HEART PALPITATIONS 11/03/16 Yes morphine Adverse Reaction Severe SEVERE HEADACE 11/03/16 Yes Physical Exam Physical Exam Constitutional: Well developed, well nourished, no acute distress, non-toxic appearance. [] HENT: Normocephalic, atraumatic, bilateral external ears normal, oropharynx moist, no oral exudates, nose normal. [] Eyes: PERRLA, EOMI, conjunctiva normal, no discharge. [] Neck: Normal range of motion, no tenderness, supple, no stridor. [] Cardiovascular:Heart rate regular rhythm, no murmur [] Lungs & Thorax: Bilateral breath sounds clear to auscultation [] Abdomen: Bowel sounds normal, soft, no tenderness, no masses, no pulsatile masses. [] Skin: See extremity Back: No tenderness, no CVA tenderness. [] Extremities: Left hand with no obvious deformity, a small bruise noted on the left hand mid index finger and middle finger metacarpal. No erythema to the area. No tenderness. Full range of motion to the left hand and fingers. Adequate radial, medial, no sensation to the left hand. +2 left radial pulse. Cap refill is fingers. Neurologic: Alert and oriented X 3, normal motor function, normal sensory function, no focal deficits noted. [] Psychologic: Affect normal, judgement normal, mood normal. [] Current Patient Data Vital Signs Vital Signs Date Time Temp Pulse Resp B/P (MAP) Pulse Ox O2 Delivery O2 Flow Rate FiO2 09/24/18 18:30 98.0 91 16 141/85 (103) 99 Room Air 98.0 EKG EKG [] Radiology/Procedures Radiology/Procedures []PROCEDURE: EXT NON VASC LEFT EXT NON VASC LEFT Clinical Indication: pt noticed a bruise on the back of her left hand 2 hrs ago, area is painful, no known injury

koby post left hand between distal 3rd and 4th distal metacarparl Comparison: None. Findings: Real-time ultrasound imaging of the hand is performed. In the region of interest of the posterior hand between the third and fourth distal metacarpals, the superficial subcutaneous tissues are hyperechoic and mildly heterogeneous. Color Doppler interrogation is negative. No discrete mass or fluid collection is seen. IMPRESSION: Subcutaneous tissues are hyperechoic and mildly heterogeneous in the region of interest. Sonographic appearance is nonspecific. Appearance could relate to the provided history of bruising. Electronically signed by: Roberto Kitchen MD (09/24/2018 7:25 PM) [facility] DICTATED and SIGNED BY: ROBERTO KITCHEN MD DATE: 09/24/181920 Course & Med Decision Making Course & Med Decision Making Pertinent Labs and Imaging studies reviewed. (See chart for details) This is a 53-year-old female patient presenting to the ED today with bruising on the left hand that she noted 2 hours ago, no known injury, patient herself requesting ultrasound of the left hand to make sure she does not have a blood clot. She is on Plavix. Left hand venous Doppler interpreted by radiologist is negative for any acute findings. Noted for bruising. Patient was discharged with instructions to ice and elevate the extremity. Follow-up with PCP next week. Dragon Disclaimer Dragon Disclaimer This electronic medical record was generated, in whole or in part, using a voice recognition dictation system. Departure Departure Impression: Primary Impression: Bruise Disposition: 01 HOME, SELF-CARE Condition: STABLE Referrals: ROBERTO STUART MD (PCP) follow up next week Patient Instructions: Contusion, [id number] Additional Instructions: You were evaluated in the emergency room for bruising on your left hand. Ice elevate the extremity. Follow-up with your doctor next week. Come back to the ED at any point symptoms worsen. JEFF LAW APRN Sep 24, 2018 19:22
--- NOTE | 2018-09-24 19:28 | RAD ---
EXT NON VASC LEFT Clinical Indication: pt noticed a bruise on the back of her left hand 2 hrs ago, area is painful, no known injury

koby post left hand between distal 3rd and 4th distal metacarparl Comparison: None. Findings: Real-time ultrasound imaging of the hand is performed. In the region of interest of the posterior hand between the third and fourth distal metacarpals, the superficial subcutaneous tissues are hyperechoic and mildly heterogeneous. Color Doppler interrogation is negative. No discrete mass or fluid collection is seen. IMPRESSION: Subcutaneous tissues are hyperechoic and mildly heterogeneous in the region of interest. Sonographic appearance is nonspecific. Appearance could relate to the provided history of bruising. Electronically signed by: Roberto Beach MD (09/24/2018 7:25 PM) [facility]
== END 2018-09-24 19:43 | disposition home or self-care (01) ==
LOC: ER 18:19
DX: I25.10 Atherosclerotic heart disease of native coronary artery without angina pectoris (principal); S60.222A Contusion of left hand, initial encounter; E78.00 Pure hypercholesterolemia, unspecified; I10 Essential (primary) hypertension; E11.9 Type 2 diabetes mellitus without complications; E03.9 Hypothyroidism, unspecified; I25.2 Old myocardial infarction; K58.9 Irritable bowel syndrome, unspecified; Z88.2 Allergy status to sulfonamides; Z88.5 Allergy status to narcotic agent; Z88.8 Allergy status to other drugs, medicaments and biological substances; W22.8XXA Striking against or struck by other objects, initial encounter; Y93.89 Activity, other specified; Y92.89 Other specified places as the place of occurrence of the external cause; Y99.8 Other external cause status
CPT/HCPCS: 76881; 99284-25

== ENCOUNTER 2019-07-30 22:54 | Inpatient (IN) | payer MEDICARE ==
[~2019-07-30] VITALS: Ht 162.6 cm; Wt 93.0 kg
[~2019-07-30 22:54] MED LIST changes: -AMLO10TA6 PO; +AMLO10TA8 PO
[2019-07-30] MEDS ORDERED: NITROGLYCERIN SUBLINGUAL 0.4 MG BOTTLE OF 25. SL PRN (23:15)
[2019-07-30] MEDS ORDERED: ASPIRIN CHEWABLE 81 MG TABLET. PO ONE (23:30)
[2019-07-30 23:45] LABS: BASO # 0.1 x10^3/uL (0.0-0.2); BASO % 1 % (0-3); EOS # 0.1 x10^3/uL (0.0-0.7); EOS % 1 % (0-3); HEMATOCRIT 38.8 % (36.0-47.0); HEMOGLOBIN 13.6 g/dL (12.0-15.5); LYMPH # 2.7 x10^3/uL (1.0-4.8); LYMPH % 33 % (24-48); MEAN CORPUSCULAR HEMOGLOBIN 31 pg (25-35); MEAN CORPUSCULAR HGB CONC 35 g/dL (31-37); MEAN CORPUSCULAR VOLUME 88 fL (79-100); MONO # 0.4 x10^3/uL (0.0-1.1); MONO % 5 % (0-9); NEUT % 60 % (31-73); PLATELET COUNT 263 x10^3/uL (140-400); RED BLOOD COUNT 4.41 x10^6/uL (3.50-5.40); RED CELL DISTRIBUTION WIDTH 14.1 % (11.5-14.5); WHITE BLOOD COUNT 8.3 x10^3/uL (4.0-11.0)
[2019-07-30 23:54] LABS: PROTHROMBIN TIME PATIENT 12.1 SEC (11.7-14.0)
[2019-07-30 23:58] LABS: CALCIUM 9.6 mg/dL (8.5-10.1); CREATININE 0.8 mg/dL (0.6-1.0); GFR 75.3; POTASSIUM 3.7 mmol/L (3.5-5.1)
[2019-07-31 00:02] LABS: ALBUMIN 3.5 g/dL (3.4-5.0); ALBUMIN/GLOBULIN RATIO 0.7 (1.0-1.7); TOTAL BILIRUBIN 0.4 mg/dL (0.2-1.0); TOTAL PROTEIN 8.2 g/dL (6.4-8.2)
--- NOTE | 2019-07-31 00:35 | RAD ---
PROCEDURE: PORTABLE CHEST 1V CLINICAL INDICATION: Chest pain. COMPARISON: None FINDINGS: No pneumothorax identified. Cardiac and mediastinal contours unremarkable. No pulmonary consolidation or acute airspace disease. No acute osseous abnormalities identified. IMPRESSION: No pulmonary consolidation or acute airspace disease. Electronically signed by: Dl Nelson DO (07/31/2019 12:33 AM) [facility]
--- NOTE | 2019-07-31 00:42 | PHYS DOC ---
Past Medical History Past Medical History: Anxiety, Arthritis, Bronchitis, CAD, Cancer, Diabetes- Type II, High Cholesterol, Hypertension, Hypothyroid, IBS, [place] Additional Past Medical Histor: CERVICAL CANCER Past Surgical History: Cholecystectomy, Hysterectomy Additional Past Surgical Histo: CARDIAC CATH X3, TOE SX BOTH FEET Alcohol Use: None Drug Use: Marijuana Adult General Chief Complaint Chief Complaint: CHEST PAIN [facility] HPI Patient is a 54 year old female who presents with complaining of chest pain. Patient complaining of gradual onset of substernal aching chest pain with admission to bilateral lower chest with episodes of sharp pain intermittently. Patient states the pain continued to be getting force and rated her pain 8/10 at arrival to ER. She denies shortness of breath, nausea, dizziness, palpitation, fever and chills, cough and congestion. Patient states she has had episodes of chest and had stent placement. Patient states she had 181 mg of aspirin today and took Tums without improvement of the pain. Review of Systems Review of Systems Constitutional: Denies fever or chills [] Eyes: Denies change in visual acuity, redness, or eye pain [] HENT: Denies nasal congestion or sore throat [] Respiratory: Denies cough or shortness of breath [] Cardiovascular: No additional information not addressed in HPI [] GI: Denies abdominal pain, nausea, vomiting, bloody stools or diarrhea [] : Denies dysuria or hematuria [] Musculoskeletal: Denies back pain or joint pain [] Integument: Denies rash or skin lesions [] Neurologic: Denies headache, focal weakness or sensory changes [] Endocrine: Denies polyuria or polydipsia [] All other systems were reviewed and found to be within normal limits, except as documented in this note. Current Medications Current Medications Current Medications Medications (Trade) Dose Ordered Sig/Vincent Start Time Stop Time Status Last Admin Dose Admin Aspirin (Children'S Aspirin) 243 mg 1X ONCE 07/30/19 23:30 07/30/19 23:31 DC 07/30/19 23:30 243 MG Nitroglycerin (Nitrostat) 0.4 mg PRN Q5MIN PRN 07/30/19 23:15 07/31/19 23:14 07/30/19 23:31 0.4 MG Allergies Allergies Allergies Coded Allergies Type Severity Reaction Last Updated Verified Sulfa (Sulfonamide Antibiotics) Allergy Severe GENERALIZED RASH 11/03/16 Yes doxycycline Allergy Severe BLISTERS ON SKIN - INTERNALLY FELT LIKE SHE WAS ON FIRE 11/03/16 Yes hydrochlorothiazide Adverse Reaction Severe HEART PALPITATIONS 11/03/16 Yes morphine Adverse Reaction Severe SEVERE HEADACE 11/03/16 Yes Physical Exam Physical Exam Constitutional: Well developed, well nourished, mild distress, non-toxic appearance. [] HENT: Normocephalic, atraumatic. Eyes: PERRLA, EOMI, conjunctiva normal, no discharge. [] Neck: Normal range of motion, no tenderness, supple, no stridor. [] Cardiovascular:Heart rate regular rhythm, no murmur [] Lungs & Thorax: Bilateral breath sounds clear to auscultation , supple restaurant reproducible pain[] Abdomen: Bowel sounds normal, soft, no tenderness, no masses, no pulsatile masses. [] Skin: Warm, dry, no erythema, no rash. [] Back: No tenderness, no CVA tenderness. [] Extremities: No tenderness, no cyanosis, no clubbing, ROM intact, no edema. [] Neurologic: Alert and oriented X 3, no focal deficits noted. [] Psychologic: Affect normal, judgement normal, mood normal. [] Current Patient Data Vital Signs Vital Signs Date Time Temp Pulse Resp B/P (MAP) Pulse Ox O2 Delivery O2 Flow Rate FiO2 07/30/19 23:31 83 171/96 07/30/19 22:55 97.7 26 97 Room Air 97.7 Lab Values Laboratory Tests Test 07/30/19 23:25 White Blood Count 8.3 x10^3/uL (4.0-11.0) Red Blood Count 4.41 x10^6/uL (3.50-5.40) Hemoglobin 13.6 g/dL (12.0-15.5) Hematocrit 38.8 % (36.0-47.0) Mean Corpuscular Volume 88 fL (79-100) Mean Corpuscular Hemoglobin 31 pg (25-35) Mean Corpuscular Hemoglobin Concent 35 g/dL (31-37) Red Cell Distribution Width 14.1 % (11.5-14.5) Platelet Count 263 x10^3/uL (140-400) Neutrophils (%) (Auto) 60 % (31-73) Lymphocytes (%) (Auto) 33 % (24-48) Monocytes (%) (Auto) 5 % (0-9) Eosinophils (%) (Auto) 1 % (0-3) Basophils (%) (Auto) 1 % (0-3) Neutrophils # (Auto) 5.0 x10^3/uL (1.8-7.7) Lymphocytes # (Auto) 2.7 x10^3/uL (1.0-4.8) Monocytes # (Auto) 0.4 x10^3/uL (0.0-1.1) Eosinophils # (Auto) 0.1 x10^3/uL (0.0-0.7) Basophils # (Auto) 0.1 x10^3/uL (0.0-0.2) Prothrombin Time 12.1 SEC (11.7-14.0) Prothrombin Time INR 0.9 (0.8-1.1) Sodium Level 136 mmol/L (136-145) Potassium Level 3.7 mmol/L (3.5-5.1) Chloride Level 101 mmol/L (98-107) Carbon Dioxide Level 28 mmol/L (21-32) Anion Gap 7 (6-14) Blood Urea Nitrogen 16 mg/dL (7-20) Creatinine 0.8 mg/dL (0.6-1.0) Estimated GFR (Cockcroft-Gault) 75.3 BUN/Creatinine Ratio 20 (6-20) Glucose Level 176 mg/dL (70-99) H Calcium Level 9.6 mg/dL (8.5-10.1) Magnesium Level 2.0 mg/dL (1.8-2.4) Total Bilirubin 0.4 mg/dL (0.2-1.0) Aspartate Amino Transferase (AST) 37 U/L (15-37) Alanine Aminotransferase (ALT) 47 U/L (14-59) Alkaline Phosphatase 116 U/L (46-116) Creatine Kinase 37 U/L (26-192) Troponin I Quantitative < 0.017 ng/mL (0.000-0.055) NX-Dzc-L-Type Natriuretic Peptide 16 pg/mL (0-124) Total Protein 8.2 g/dL (6.4-8.2) Albumin 3.5 g/dL (3.4-5.0) Albumin/Globulin Ratio 0.7 (1.0-1.7) L Lipase 161 U/L (73-393) Laboratory Tests 07/30/19 23:25 Laboratory Tests 07/30/19 23:25 EKG EKG EKG interpreted by me. EKG at 2301 showed normal sinus rhythm at rate of 82, prolonged AK at 214, normal axis, no acute distress and T-wave abnormalities. Radiology/Procedures Radiology/Procedures [][facility] [address] [place] [address] IMAGING REPORT Signed PATIENT: DEION OMALLEY ACCOUNT: [id number] : 1965 LOCATION: ER AGE: 54 SEX: F EXAM STATUS: REG ER ORD. PHYSICIAN: BETTINA HANNAH MD REASON: chest pain PROCEDURE: PORTABLE CHEST 1V PROCEDURE: PORTABLE CHEST 1V CLINICAL INDICATION: Chest pain. COMPARISON: None FINDINGS: No pneumothorax identified. Cardiac and mediastinal contours unremarkable. No pulmonary consolidation or acute airspace disease. No acute osseous abnormalities identified. IMPRESSION: No pulmonary consolidation or acute airspace disease. Electronically signed by: Dl Nelson DO (07/31/2019 12:33 AM) [facility] DICTATED and SIGNED BY: DL NELSON DO DATE: 07/31/19 0033 Course & Med Decision Making Course & Med Decision Making Pertinent Labs and Imaging studies reviewed. (See chart for details) Evaluation of patient in ER showed 54-year-old female patient with heart score of 5 and complaining of chest pain. Patient had unremarkable labs and felt better with nitroglycerin 4 pain dropped from 7 to 3. She refused to take more nitroglycerin.Patient requiring admission for further evaluation and treatment. Discussed with Dr. Stuart who is in agreement with admission. Discussed findings and plan with patient and family, who acknowledge understanding and agreement. Dragon Disclaimer Dragon Disclaimer This electronic medical record was generated, in whole or in part, using a voice recognition dictation system. Departure Departure Impression: Primary Impression: Acute chest pain Disposition: ADMITTED INPATIENT (at 0052) Admitting Physician: Henny Stuart (accepted admission at 0051) Condition: IMPROVED Referrals: HENNY STUART MD (PCP) The HEART Score for CP Pts HEART Score for Chest Pain: HEART Score for Chest Pain Response (Comments) Value History Moderately Suspicious 1 ECG Nonspecific Repolarizatio 1 Age >45 - < 65 1 Risk Factors >3 Risk Factors or Hx CAD 2 Troponin < Normal Limit 0 Total 5 Risk Factors: Risk Factors: DM, Current or recent (<one month) smoker, HTN, HLP, family history of CAD, obesity. Risk Scores: Score 0 - 3: 2.5% MACE over next 6 weeks - Discharge Home Score 4 - 6: 20.3% MACE over next 6 weeks - Admit for Clinical Observation Score 7 - 10: 72.7% MACE over next 6 weeks - Early Invasive Strategies BETTINA HANNAH MD Jul 31, 2019 00:42
[2019-07-31] MEDS ORDERED: LIDO:MAALOX 1:1 20 ML SINGLE DOSE. SWSW ONE (01:30)
[2019-07-31 02:30] VITALS: BP 188/92
[2019-07-31] MEDS ORDERED: INSU100C4 SQ (02:50)
[2019-07-31] MEDS ORDERED: INSU100V37 SQ (02:50)
[2019-07-31] MEDS ORDERED: MENT3.2L MM (02:52)
[2019-07-31] MEDS ORDERED: PEG15DRO2 OP (02:55)
[2019-07-31] MEDS ORDERED: hydrALAZINE 20 MG/ML VIAL. IVP PRN (03:15)
[2019-07-31] MEDS ORDERED: CALCIUM CARBONATE 500 MG TAB.CHEW PO PRN (03:15)
[2019-07-31] MEDS ORDERED: POLYVINYL ALCOHOL 1.4% OPHTH SOLUTION 15ML BOTTLE. OU PRN (03:15)
[2019-07-31] MEDS ORDERED: BENZOCAINE/MENTHOL LOZENGE. PO PRN (03:15)
[2019-07-31] MEDS ORDERED: ACETAMINOPHEN 325 MG TABLET. PO PRN (03:15)
[2019-07-31] MEDS ORDERED: LISINOPRIL 20 MG TABLET PO ONE (05:45)
[2019-07-31] MEDS ORDERED: LEVOTHYROXINE 25 MCG TABLET. PO SCH (06:00)
[2019-07-31 07:00] VITALS: BP 148/89
[2019-07-31 07:00] LABS: BASO # 0.1 x10^3/uL (0.0-0.2); BASO % 1 % (0-3); EOS # 0.1 x10^3/uL (0.0-0.7); EOS % 2 % (0-3); HEMATOCRIT 41.6 % (36.0-47.0); HEMOGLOBIN 14.5 g/dL (12.0-15.5); LYMPH # 2.4 x10^3/uL (1.0-4.8); LYMPH % 33 % (24-48); MEAN CORPUSCULAR HEMOGLOBIN 31 pg (25-35); MEAN CORPUSCULAR HGB CONC 35 g/dL (31-37); MEAN CORPUSCULAR VOLUME 88 fL (79-100); MONO # 0.4 x10^3/uL (0.0-1.1); MONO % 5 % (0-9); NEUT # 4.3 x10^3/uL (1.8-7.7); NEUT % 60 % (31-73); PLATELET COUNT 269 x10^3/uL (140-400); RED BLOOD COUNT 4.73 x10^6/uL (3.50-5.40); WHITE BLOOD COUNT 7.3 x10^3/uL (4.0-11.0)
[2019-07-31 07:11] LABS: CALCIUM 10.2 mg/dL (8.5-10.1); CREATININE 0.7 mg/dL (0.6-1.0); GFR 87.9; POTASSIUM 4.1 mmol/L (3.5-5.1)
[2019-07-31] MEDS ORDERED: PANTOPRAZOLE 40 MG TABLET.DR. PO SCH (07:30)
[2019-07-31] MEDS ORDERED: ASPIRIN CHEWABLE 81 MG TABLET. PO SCH (08:00)
[2019-07-31] MEDS: INSULIN LISPRO 300 UNITS/3 ML VIAL. SQ PRN ×2 (08:56→12:24)
[2019-07-31] MEDS ORDERED: OMEGA-3 FATTY ACIDS/FISH OIL 1,000 MG CAPSULE. PO SCH (09:00)
[2019-07-31] MEDS ORDERED: CHOLECALCIFEROL (VITAMIN D3) 1,000 UNIT TABLET PO SCH (09:00)
[2019-07-31] MEDS ORDERED: MULTIVITAMIN with MINERAL TABLET. PO SCH (09:00)
[2019-07-31] MEDS ORDERED: CLOPIDOGREL BISULFATE 75 MG TABLET PO SCH (09:00)
[2019-07-31] MEDS ORDERED: LACTOBACILLUS RHAMNOSUS GG 1 CAPSULE. PO SCH (09:00)
[2019-07-31] MEDS ORDERED: LINAGLIPTIN 5 MG TABLET PO SCH (09:00)
[2019-07-31] MEDS ORDERED: CETIRIZINE HCL 10 MG TABLET. PO SCH (09:00)
[2019-07-31] MEDS ORDERED: METOPROLOL SUCC 24HR ER 100 MG TAB.ER.24H. PO SCH (09:00)
[2019-07-31] MEDS ORDERED: BUTALB/APAP/CAFEIN 50/325/40MG TABLET. PO PRN (10:30)
[2019-07-31 11:00] VITALS: BP 151/92
--- NOTE | 2019-07-31 13:10 | PDOC ---
Provider Note Provider Note Pt admitted for chest pain , H?o cardiac stents ,last cath 1 yr ago showed patent stents. H&P dictated.#[id number]. ROBERTO STUART MD Jul 31, 2019 13:10
--- NOTE | 2019-07-31 14:22 | HP ---
ADMIT DATE: 07/31/2019 LOCATION: [facility] [place] REASON FOR ADMISSION: Chest pain. HISTORY OF PRESENT ILLNESS: The patient is a 54-year-old female. The patient has a known history of coronary artery disease and previous cardiac stents. She has diabetes, hypertension, hyperlipidemia, and she has been having pain in the chest, and she also had lot of anxiety, headaches, was brought to the hospital. The patient was doing relatively well and she was admitted to the hospital for cardiac enzymes and EKG. PAST MEDICAL HISTORY: She has history of diabetes, hypertension, coronary artery disease, and cardiac stents. PAST SURGICAL HISTORY: Gallbladder surgery, hysterectomy, cardiac catheterization. ALLERGIES: SULFA, DOXYCYCLINE, HYDROCHLOROTHIAZIDE, MORPHINE. MEDICATIONS: At home, the patient is on aspirin 81 mg daily, atorvastatin 40 mg daily, calcium daily, vitamin D 2000 daily, Plavix 75 mg daily, insulin 6 units 3 times daily, Tresiba 20 units daily, Matos' Colon, eyedrops latanoprost 0.5 one drop at bedtime, levothyroxine 25 mcg daily, lisinopril 40 mg daily, loratadine 10 mg daily, metoprolol 100 mg daily, multivitamin daily, nortriptyline 25 mg daily, fish oil daily, omeprazole 40 mg daily, Januvia 100 mg daily, CoQ 400 mg daily. PERSONAL HISTORY: No history of smoking, alcohol, or drug abuse. FAMILY HISTORY: Positive for diabetes, heart disease. REVIEW OF SYMPTOMS: Has migraine headaches and anxiety. Rest of the 14-system reviewed. The patient denies any chest pain. PHYSICAL EXAMINATION: GENERAL: She is comfortable, sitting in chair. VITAL SIGNS: Temperature 98, pulse 86, respirations 20, blood pressure 150/90, and saturation 99% on room air. HEENT: Head is atraumatic. Pupils are equal. Oral cavity shows no congestion. NECK: Supple. Thyroid not enlarged. JVD not elevated. CHEST: Symmetrical. CARDIOVASCULAR: S1, S2. LUNGS: Clear. ABDOMEN: Soft, no mass palpable. EXTREMITIES: No calf tenderness, no edema, pulses 1+. NEUROLOGIC: No focal deficits; moving all extremities. LABORATORY DATA: White count 8, hemoglobin 13, platelets 263, INR 0.9. Electrolytes are unremarkable. Troponin is 0.017, all three. BNP is negative. IMAGING: Chest x-ray was negative. DIAGNOSTICS: EKG is negative. The patient had a stress test, which was negative, this was in 10/2017, normal ejection fraction. FINAL IMPRESSION: 1. Chest pain; does not look like cardiac at this time. 2. Known history of coronary artery disease, previous cardiac stents. 3. Diabetes. 4. Hypertension. 5. Hyperlipidemia. 6. Hypothyroidism. PLAN: At this time, the patient is admitted for observation, serial cardiac enzymes, EKG, and to see how she does. If she is feeling better, she could be discharged later today or tomorrow morning. ROBERTO STUART MD DR: DANUAT/shannen JOB#: [id number] / [id number]
--- NOTE | 2019-07-31 14:22 | NUR ---
Discharge Note: DEION OMALLEY Discharge instructions and discharge home medications reviewed with Patient and a copy given. All questions have been answered and understanding verbalized.
[2019-07-31] MEDS ORDERED: UBIDECARENONE 400 MG PO SCH (21:00)
[2019-07-31] MEDS ORDERED: NORTRIPTYLINE 25 MG CAPSULE PO SCH (21:00)
[2019-07-31] MEDS ORDERED: INSULIN GLARGINE SYRINGE. SQ SCH (21:00)
[2019-07-31] MEDS ORDERED: ATORVASTATIN CALCIUM 40 MG TABLET. PO SCH (21:00)
[2019-07-31] MEDS ORDERED: LATANOPROST 0.005% OPHTH SOLUTION 2.5ML BOTTLE. OU SCH (21:00)
--- NOTE | 2019-08-01 08:32 | EKG ---
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
[2019-08-01] MEDS ORDERED: LISINOPRIL 20 MG TABLET PO SCH (09:00)
--- NOTE | 2019-08-02 15:47 | PDOC ---
Provider Note Provider Note arge summary dictated.#[id number]. ROBERTO STUART MD Aug 02, 2019 15:47
--- NOTE | 2019-08-02 21:24 | DS ---
DATE OF DISCHARGE: 07/31/2019 REASON FOR ADMISSION TO THE HOSPITAL: Chest pain. The patient has known history of coronary artery disease. CONSULTATIONS: None. PROCEDURES: None. HOSPITAL COURSE: The patient is a 54-year-old female. The patient has a history of coronary artery disease, previous stents and she had a cardiac cath last year, shows patent stent. She came with chest pain. She also has anxiety, headaches. Cardiac enzymes and EKG were negative. The patient was discharged. FINAL IMPRESSION: 1. Noncardiac chest pain. 2. Known history of coronary artery disease, previous cardiac stent, had a cardiac cath last year, shows patent stents. 3. Diabetes. 4. Hypertension. 5. Hyperlipidemia. 6. Tension headaches. DISPOSITION: Home. DISCHARGE MEDICATIONS: See MRAD for discharge medications. ROBERTO STUART MD DR: DANUTA/shannen JOB#: [id number] / [id number]
== END 2019-07-31 14:00 | disposition home or self-care (01) | DRG 392 ==
LOC: ER 22:54 → 2 NORTH 07-31 01:19
PROVIDERS: ADMIT Internal Medicine; ATTEND Internal Medicine
DX: K21.9 Gastro-esophageal reflux disease without esophagitis (principal); I25.10 Atherosclerotic heart disease of native coronary artery without angina pectoris; F41.9 Anxiety disorder, unspecified; E11.9 Type 2 diabetes mellitus without complications; E03.9 Hypothyroidism, unspecified; E78.00 Pure hypercholesterolemia, unspecified; G44.209 Tension-type headache, unspecified, not intractable; I10 Essential (primary) hypertension; K58.9 Irritable bowel syndrome, unspecified; E78.5 Hyperlipidemia, unspecified; Z85.41 Personal history of malignant neoplasm of cervix uteri; Z90.710 Acquired absence of both cervix and uterus; Z90.49 Acquired absence of other specified parts of digestive tract; I25.2 Old myocardial infarction; Z95.5 Presence of coronary angioplasty implant and graft; Z88.1 Allergy status to other antibiotic agents; Z88.5 Allergy status to narcotic agent; Z88.2 Allergy status to sulfonamides; Z83.3 Family history of diabetes mellitus
CPT/HCPCS: 36415; 71045; 80048; 80053; 82550; 83690; 83735; 83880; 84484; 85025; 85610; 93005; J0360; J1815; 99285-25; G0378

== ENCOUNTER 2019-10-01 13:00 | Emergency (ER) | payer MEDICARE ==
[~2019-10-01] VITALS: Ht 162.6 cm; Wt 93.0 kg
[~2019-10-01 13:00] MED LIST changes: +INSU100C4 SQ; +INSU100V37 SQ; +MENT3.2L MM; +PEG15DRO2 OP
[2019-10-01] MEDS ORDERED: fentaNYL PF VIAL 100 MCG/2 ML VIAL IVP ONE (14:00)
[2019-10-01] MEDS ORDERED: ONDANSETRON PF 4 MG/2 ML VIAL. IV ONE (14:00)
[2019-10-01] MEDS ORDERED: ASPIRIN CHEWABLE 81 MG TABLET. PO ONE (14:00)
[2019-10-01 14:05] LABS: BASO # 0.1 x10^3/uL (0.0-0.2); BASO % 1 % (0-3); EOS # 0.2 x10^3/uL (0.0-0.7); EOS % 2 % (0-3); HEMATOCRIT 44.3 % (36.0-47.0); HEMOGLOBIN 15.1 g/dL (12.0-15.5); LYMPH # 2.5 x10^3/uL (1.0-4.8); LYMPH % 28 % (24-48); MEAN CORPUSCULAR HEMOGLOBIN 31 pg (25-35); MEAN CORPUSCULAR HGB CONC 34 g/dL (31-37); MEAN CORPUSCULAR VOLUME 90 fL (79-100); MONO # 0.4 x10^3/uL (0.0-1.1); MONO % 5 % (0-9); NEUT # 5.6 x10^3/uL (1.8-7.7); NEUT % 64 % (31-73); PLATELET COUNT 295 x10^3/uL (140-400); RED BLOOD COUNT 4.93 x10^6/uL (3.50-5.40); WHITE BLOOD COUNT 8.8 x10^3/uL (4.0-11.0)
[2019-10-01 14:12] LABS: PROTHROMBIN TIME PATIENT 12.7 SEC (11.7-14.0)
--- NOTE | 2019-10-01 14:38 | RAD ---
Examination: CT of the abdomen pelvis were performed without contrast HISTORY: History of abdominal pain for one week COMPARISON: 07/25/2018 TECHNIQUE: Axial CT images of the abdomen is performed without contrast. Coronal and sagittal reformats are performed. Exposure: One or more of the following individualized dose reduction techniques were utilized for this examination: 1. Automated exposure control 2. Adjustment of the mA and/or kV according to patient size 3. Use of iterative reconstruction technique FINDINGS: Minimal bibasilar lung atelectasis. No evidence of free air identified in the abdomen. The evaluation of the solid organs is limited due to lack of IV contrast. The evaluation of bowel is limited due to lack of oral contrast. The visualized noncontrasted liver demonstrates decreased attenuation throughout likely hepatic steatosis. The spleen, adrenals grossly appears unremarkable. Cholecystectomy clips identified. The stomach is mildly distended. The visualized pancreas grossly appears unremarkable. Small bowel is nondilated. The appendix is normal. Feces and gas noted in the colon. Sigmoid colon diverticulosis identified. Questionable minimal fat stranding identified about the sigmoid colon. Urinary bladder is mildly distended. Cystic structure identified in the left kidney measuring 3.8 cm likely a cyst. Mild degenerative changes lumbar spine. IMPRESSION: 1. Mild questionable fat stranding identified about the sigmoid colon could be mild diverticulitis. 2. Sigmoid colon diverticulosis. 3. Hepatic steatosis. Electronically signed by: Geoffrey Marroquin MD (10/01/2019 2:35 PM) [facility]
--- NOTE | 2019-10-01 14:38 | RAD ---
EXAM: Chest, single view. HISTORY: Pain. COMPARISON: 07/30/2019 FINDINGS: A frontal view of the chest obtained. There is no infiltrate, pleural effusion or pneumothorax. The heart is normal in size. There are calcified granulomas. IMPRESSION: No acute pulmonary finding. Electronically signed by: Keena Lockhart MD (10/01/2019 2:35 PM) [facility] [place]
[2019-10-01 14:52] LABS: CALCIUM 9.2 mg/dL (8.5-10.1); GFR 58.2; POTASSIUM 4.1 mmol/L (3.5-5.1)
[2019-10-01 14:58] LABS: ALBUMIN 3.7 g/dL (3.4-5.0); ALBUMIN/GLOBULIN RATIO 0.9 (1.0-1.7); MAGNESIUM 1.7 mg/dL (1.8-2.4); TOTAL BILIRUBIN 0.3 mg/dL (0.2-1.0); TOTAL PROTEIN 7.9 g/dL (6.4-8.2)
[2019-10-01 15:53] VITALS: BP 154/99
[2019-10-01] MEDS ORDERED: METR500T PO (15:56)
[2019-10-01] MEDS ORDERED: CIPR500T94 PO (15:56)
[2019-10-01] MEDS ORDERED: ONDA4TAB7 PO (15:56)
--- NOTE | 2019-10-01 15:57 | PHYS DOC ---
Past Medical History Past Medical History: Anxiety, Arthritis, Bronchitis, CAD, Cancer, Diabetes- Type II, High Cholesterol, Hypertension, Hypothyroid, IBS, [place] Additional Past Medical Histor: CERVICAL CANCER, NEUROPATHY Past Surgical History: Cholecystectomy, Hysterectomy Additional Past Surgical Histo: CARDIAC CATH X3, TOE SX BOTH FEET Alcohol Use: None Drug Use: Marijuana Adult General Chief Complaint Chief Complaint: CHEST PAIN HPI HPI Patient is a 54 year old female patient with history of hypertension, dyslipidemia, diabetes mellitus, coronary artery disease, anxiety, cervical cancer, IBS who presents with complaining of right-sided chest pain. Evaluation complaining of intermittent episodes of right lower chest wall and under breast pain for the last 1 week that usually happen once a day while she goes to the bed as an aching and sharp pain without radiation and associated with shortness of breath or nausea, dizziness that lasts for few minutes to several hours and rated her pain 10 over 10. Patient states the pain getting worse with movement and denies fever and chills, cough, left-sided chest pain. She also complaining of lower abdominal pain for 1 week as a constant pain with constant nausea and couple episodes of diarrhea yesterday and urinary frequency without fever and chills and constipation. Review of Systems Review of Systems Constitutional: Denies fever or chills [] Eyes: Denies change in visual acuity, redness, or eye pain [] HENT: Denies nasal congestion or sore throat [] Respiratory: Denies cough, reports shortness of breath [] Cardiovascular: No additional information not addressed in HPI [] GI: Reports abdominal pain, nausea, diarrhea [] : Denies dysuria or hematuria [] Musculoskeletal: Denies back pain or joint pain [] Integument: Denies rash or skin lesions [] Neurologic: Denies headache, focal weakness or sensory changes [] Endocrine: Denies polyuria or polydipsia [] All other systems were reviewed and found to be within normal limits, except as documented in this note. Current Medications Current Medications Current Medications Medications (Trade) Dose Ordered Sig/Vincent Start Time Stop Time Status Last Admin Dose Admin Aspirin (Children'S Aspirin) 243 mg 1X ONCE 10/01/19 14:00 10/01/19 14:01 DC 10/01/19 13:58 243 MG Fentanyl Citrate (Fentanyl 2ml Vial) 50 mcg 1X ONCE 10/01/19 14:00 10/01/19 14:01 DC 10/01/19 13:59 50 MCG Ondansetron HCl (Zofran) 4 mg 1X ONCE 10/01/19 14:00 10/01/19 14:01 DC 10/01/19 13:59 4 MG Allergies Allergies Allergies Coded Allergies Type Severity Reaction Last Updated Verified Sulfa (Sulfonamide Antibiotics) Allergy Severe GENERALIZED RASH 11/03/16 Yes doxycycline Allergy Severe BLISTERS ON SKIN - INTERNALLY FELT LIKE SHE WAS ON FIRE 11/03/16 Yes hydrochlorothiazide Adverse Reaction Severe HEART PALPITATIONS 11/03/16 Yes morphine Adverse Reaction Severe SEVERE HEADACE 11/03/16 Yes Physical Exam Physical Exam Constitutional: Well nourished, mild distress, non-toxic appearance, obese. [] HENT: Normocephalic, atraumatic, oropharynx moist. Eyes: PERRLA, EOMI, conjunctiva normal, no discharge. [] Neck: Normal range of motion, no tenderness, supple, no stridor. [] Cardiovascular:Heart rate regular rhythm, no murmur [] Lungs & Thorax: Bilateral breath sounds clear to auscultation right sided chest wall reproducible pain[] Abdomen: Bowel sounds normal, soft, no tenderness, no masses, no pulsatile masses. [] Skin: Warm, dry, no erythema, no rash. [] Back: No tenderness, no CVA tenderness. [] Extremities: No tenderness, no cyanosis, no clubbing, ROM intact, no edema. [] Neurologic: Alert and oriented X 3, normal motor function, normal sensory function, no focal deficits noted. [] Psychologic: Affect depressed, judgement normal, mood normal. [] Current Patient Data Vital Signs Vital Signs Date Time Temp Pulse Resp B/P (MAP) Pulse Ox O2 Delivery O2 Flow Rate FiO2 10/01/19 15:53 92 19 154/99 (117) 95 Room Air 10/01/19 13:05 97.8 97.8 Lab Values Laboratory Tests Test 10/01/19 13:11 10/01/19 14:40 10/01/19 15:45 White Blood Count 8.8 x10^3/uL (4.0-11.0) Red Blood Count 4.93 x10^6/uL (3.50-5.40) Hemoglobin 15.1 g/dL (12.0-15.5) Hematocrit 44.3 % (36.0-47.0) Mean Corpuscular Volume 90 fL (79-100) Mean Corpuscular Hemoglobin 31 pg (25-35) Mean Corpuscular Hemoglobin Concent 34 g/dL (31-37) Red Cell Distribution Width 14.0 % (11.5-14.5) Platelet Count 295 x10^3/uL (140-400) Neutrophils (%) (Auto) 64 % (31-73) Lymphocytes (%) (Auto) 28 % (24-48) Monocytes (%) (Auto) 5 % (0-9) Eosinophils (%) (Auto) 2 % (0-3) Basophils (%) (Auto) 1 % (0-3) Neutrophils # (Auto) 5.6 x10^3/uL (1.8-7.7) Lymphocytes # (Auto) 2.5 x10^3/uL (1.0-4.8) Monocytes # (Auto) 0.4 x10^3/uL (0.0-1.1) Eosinophils # (Auto) 0.2 x10^3/uL (0.0-0.7) Basophils # (Auto) 0.1 x10^3/uL (0.0-0.2) Prothrombin Time 12.7 SEC (11.7-14.0) Prothrombin Time INR 1.0 (0.8-1.1) Sodium Level 140 mmol/L (136-145) Potassium Level 4.1 mmol/L (3.5-5.1) Chloride Level 100 mmol/L (98-107) Carbon Dioxide Level 29 mmol/L (21-32) Anion Gap 11 (6-14) Blood Urea Nitrogen 14 mg/dL (7-20) Creatinine 1.0 mg/dL (0.6-1.0) Estimated GFR (Cockcroft-Gault) 58.2 BUN/Creatinine Ratio 14 (6-20) Glucose Level 172 mg/dL (70-99) H Calcium Level 9.2 mg/dL (8.5-10.1) Magnesium Level 1.7 mg/dL (1.8-2.4) L Total Bilirubin 0.3 mg/dL (0.2-1.0) Aspartate Amino Transferase (AST) 104 U/L (15-37) H Alanine Aminotransferase (ALT) 84 U/L (14-59) H Alkaline Phosphatase 134 U/L (46-116) H Creatine Kinase 33 U/L (26-192) Troponin I Quantitative < 0.017 ng/mL (0.000-0.055) ZT-Srt-G-Type Natriuretic Peptide 14 pg/mL (0-124) Total Protein 7.9 g/dL (6.4-8.2) Albumin 3.7 g/dL (3.4-5.0) Albumin/Globulin Ratio 0.9 (1.0-1.7) L Lipase 114 U/L (73-393) Urine Collection Type Unknown Urine Color Yellow Urine Clarity Clear Urine pH 6.5 Urine Specific [place] 1.025 Urine Protein Negative mg/dL (NEG-TRACE) Urine Glucose (UA) Negative mg/dL (NEG) Urine Ketones (Stick) Negative mg/dL (NEG) Urine Blood Negative (NEG) Urine Nitrite Negative (NEG) Urine Bilirubin Negative (NEG) Urine Urobilinogen Dipstick 1.0 mg/dL (0.2 mg/dL) Urine Leukocyte Esterase Small (NEG) Urine RBC 3-5 /HPF (0-2) Urine WBC >40 /HPF (0-4) Urine Squamous Epithelial Cells Occ /LPF Urine Bacteria 0 /HPF (0-FEW) Urine Hyaline Casts Moderate /HPF Urine Mucus Marked /LPF Laboratory Tests 10/01/19 13:11 Laboratory Tests 10/01/19 14:40 EKG EKG EKG interpreted by me. EKG at 1312 showed normal sinus rhythm at rate of 98, normal [place] and QT interval, poor R-wave progress in anteroseptal leads, no acute ST and T wave abnormality. Radiology/Procedures Radiology/Procedures [][facility] [address] [place] [address] IMAGING REPORT Signed PATIENT: DEION OMALLEY ACCOUNT: [id number] : 1965 LOCATION: ER AGE: 54 SEX: F EXAM STATUS: PRE ER ORD. PHYSICIAN: BETTINA HANNAH MD REASON: abdominal pain for 1 week PROCEDURE: CT ABDOMEN PELVIS WO CONTRAST Examination: CT of the abdomen pelvis were performed without contrast HISTORY: History of abdominal pain for one week COMPARISON: 07/25/2018 TECHNIQUE: Axial CT images of the abdomen is performed without contrast. Coronal and sagittal reformats are performed. Exposure: One or more of the following individualized dose reduction techniques were utilized for this examination: 1. Automated exposure control 2. Adjustment of the mA and/or kV according to patient size 3. Use of iterative reconstruction technique FINDINGS: Minimal bibasilar lung atelectasis. No evidence of free air identified in the abdomen. The evaluation of the solid organs is limited due to lack of IV contrast. The evaluation of bowel is limited due to lack of oral contrast. The visualized noncontrasted liver demonstrates decreased attenuation throughout likely hepatic steatosis. The spleen, adrenals grossly appears unremarkable. Cholecystectomy clips identified. The stomach is mildly distended. The visualized pancreas grossly appears unremarkable. Small bowel is nondilated. The appendix is normal. Feces and gas noted in the colon. Sigmoid colon diverticulosis identified. Questionable minimal fat stranding identified about the sigmoid colon. Urinary bladder is mildly distended. Cystic structure identified in the left kidney measuring 3.8 cm likely a cyst. Mild degenerative changes lumbar spine. IMPRESSION: 1. Mild questionable fat stranding identified about the sigmoid colon could be mild diverticulitis. 2. Sigmoid colon diverticulosis. 3. Hepatic steatosis. Electronically signed by: Geoffrey Marroquin MD (10/01/2019 2:35 PM) [facility] DICTATED and SIGNED BY: GEOFFREY MARROQUIN MD DATE: 10/01/19 1435 [facility] [address] [place] [address] IMAGING REPORT Signed PATIENT: DEION OMALLEY ACCOUNT: [id number] : 1965 LOCATION: ER AGE: 54 SEX: F EXAM STATUS: PRE ER ORD. PHYSICIAN: BETTINA HANNAH MD REASON: chest pain and abdominal pain PROCEDURE: PORTABLE CHEST 1V EXAM: Chest, single view. HISTORY: Pain. COMPARISON: 07/30/2019 FINDINGS: A frontal view of the chest obtained. There is no infiltrate, pleural effusion or pneumothorax. The heart is normal in size. There are calcified granulomas. IMPRESSION: No acute pulmonary finding. Electronically signed by: Keena Ferrell MD (10/01/2019 2:35 PM) [facility] [place] DICTATED and SIGNED BY: KEENA FRERELL MD DATE: 10/01/19 7985 Course & Med Decision Making Course & Med Decision Making Pertinent Labs and Imaging studies reviewed. (See chart for details) Evaluation of patient in ER showed 54-year-old female patient with multiple medical problem and complaining of several problems including recent chest pain and lower abdominal pain and diarrhea. Patient had stable vital signs without leukocytosis or elevation of lactic acid or fever or tachycardia. CT abdomen and pelvis showed mild diverticulitis and UA showed UTI. Rated without problem. Patient felt better with treatment in ER and didn't want to have narcotic pain medication for home because her primary care physician told her to not take narcotic pain medication and planned to take Excedrin for her pain. Prescription for Flagyl and Cipro was given and patient was advised to take liquid diet and follow up with her primary care physician and return to ER if not getting better. I've spoken with the patient and/or caregivers. I've explained the patient's condition, diagnosis and treatment plan based on information available to me at this time. I've answered the patient's and/or caregivers questions and addressed any concerns. The patient and/or caregivers have a good understanding the patient's diagnosis, condition and treatment plan as can be expected at this point. Vital signs have been stabilized. The patient's condition is stable for discharge from the emergency department. The patient will pursue further outpatient evaluation with her primary care provider or other designated consulting physician as outlined in the discharge i nstructions. Patient and/or caregivers are agreeable to this plan of care and follow-up instructions have been explained in detail. The patient and/or caregivers have received these instructions in written format and expressed understanding of these discharge instructions. The patient and her caregivers are aware that if any significant change in condition or worsening of symptoms should prompt him to immediately return to this of the closest emergency department. If an emergent department is not readily available I would encourage him to call 911. Kelly Disclaimer Kelly Disclaimer This electronic medical record was generated, in whole or in part, using a voice recognition dictation system. Departure Departure Impression: Primary Impression: Musculoskeletal chest pain Additional Impressions: Diverticulitis of sigmoid colon Hypomagnesemia Elevated liver function tests UTI (urinary tract infection) Disposition: HOME, SELF-CARE Condition: IMPROVED Referrals: ROBERTO STUART MD (PCP) Patient Instructions: Chest Wall Pain, Diverticulitis, Hypomagnesemia Additional Instructions: Drink plenty of liquids Follow-up with your primary care physician in 3-5 days Return to ER if not getting better Thank you for visiting [facility]. We appreciate you trusting us with your care. If any additional problems come up don't hesitate to return to visit us. Please follow up with your primary care provider so they can plan additional care if needed and know about the problem that you had. If symptoms worsen come back to the Emergency Department. Any concerning symptoms that start such as chest pain, shortness of air, weakness or numbness on one side of the body, running high fevers or any other concerning symptoms return to the ER. Scripts Ondansetron Hcl (ZOFRAN) 4 Mg Tablet 1 TAB PO PRN Q6-8HRS for nausea, #12 TAB Prov: BETTINA HANNAH MD 10/01/19 Ciprofloxacin Hcl (CIPRO) 500 Mg Tablet 1 TAB PO BID for 7 Days, #14 TAB 0 Refills Prov: BETTINA HANNAH MD 10/01/19 Metronidazole (FLAGYL) 500 Mg Tablet 500 MG PO TID, #21 TAB Prov: BETTINA HANNAH MD 10/01/19 Problem Qualifiers Additional Impressions: UTI (urinary tract infection) Urinary tract infection type: site unspecified Hematuria presence: without hematuria Qualified Codes: N39.0 - Urinary tract infection, site not specified BETTINA HANNAH MD Oct 01, 2019 15:57
[2019-10-01 16:05] LABS: BILIRUBIN,URINE NEGATIVE (NEG); CLARITY,URINE CLEAR; COLOR,URINE YELLOW; NITRITE,URINE NEGATIVE (NEG); PH,URINE 6.5; PROTEIN,URINE NEGATIVE (NEG-TRACE)
[2019-10-01 16:19] LABS: HYALINE CASTS, URINE MODERATE /HPF; SQUAMOUS EPITHELIAL CELL,UR OCC /LPF
[2019-10-01 16:20] LABS: BACTERIA,URINE 0 /HPF (0-FEW); WBC,URINE >40 /HPF (0-4)
--- NOTE | 2019-10-03 06:40 | EKG ---
[facility] [address] [place] [address] Test Date: 2019-10-01 Test Time: 13:12:19 Pat Name: DEION OMALLEY Department: Room: Gender: F Bell Clerk: : 1965 Requested By: BETTINA HANNAH Order Number: [id number] Reading MD: Measurements Intervals [place] Rate: 98 P: 15 MN: 200 QRS: 17 QRSD: 84 T: 38 QT: 344 QTc: 441 Interpretive Statements SINUS RHYTHM QRS(T) CONTOUR ABNORMALITY CONSIDER ANTEROSEPTAL MYOCARDIAL DAMAGE POSSIBLY ABNORMAL ECG RI6.01 No previous ECG available for comparison
== END 2019-10-01 16:23 | disposition home or self-care (01) ==
LOC: ER 13:00
DX: K57.32 Diverticulitis of large intestine without perforation or abscess without bleeding (principal); N39.0 Urinary tract infection, site not specified; R07.89 Other chest pain; R94.5 Abnormal results of liver function studies; E83.42 Hypomagnesemia; K76.0 Fatty (change of) liver, not elsewhere classified; E11.40 Type 2 diabetes mellitus with diabetic neuropathy, unspecified; E78.00 Pure hypercholesterolemia, unspecified; I10 Essential (primary) hypertension; E03.9 Hypothyroidism, unspecified; K58.9 Irritable bowel syndrome, unspecified; I25.2 Old myocardial infarction; I25.10 Atherosclerotic heart disease of native coronary artery without angina pectoris; Z90.710 Acquired absence of both cervix and uterus; Z90.49 Acquired absence of other specified parts of digestive tract; Z95.5 Presence of coronary angioplasty implant and graft; Z88.1 Allergy status to other antibiotic agents; Z88.2 Allergy status to sulfonamides; Z88.5 Allergy status to narcotic agent
CPT/HCPCS: 36415; 71045; 74176; 80053; 81001; 82550; 83690; 83735; 83880; 84484; 85025; 85610; 87086; 93005; 96374; 96375; 99285; J2405; J3010

== ENCOUNTER 2019-10-11 15:40 | Emergency (ER) | payer MEDICARE ==
[~2019-10-11] VITALS: Ht 162.6 cm; Wt 93.0 kg
[2019-10-11 15:51] VITALS: BP 176/110
--- NOTE | 2019-10-11 16:15 | PHYS DOC ---
Past Medical History Past Medical History: Anxiety, Arthritis, Bronchitis, CAD, Cancer, Diabetes- Type II, High Cholesterol, Hypertension, Hypothyroid, IBS, [place] Additional Past Medical Histor: CERVICAL CANCER, NEUROPATHY Past Surgical History: Cholecystectomy, Hysterectomy Additional Past Surgical Histo: CARDIAC CATH X3, TOE SX BOTH FEET Alcohol Use: None Drug Use: Marijuana Adult General Chief Complaint Chief Complaint: MECHANICAL FALL HPI HPI Patient is a 54 year old female with history of diabetes type 2, hypertension, high cholesterol, COPD, anxiety among other illnesses who presents to the ED today to be evaluated status post falling. Patient states she was walking down some steps, she states she missed the last step and fell landing on her left side. She has generalized pain throughout her left side but worse on her left shoulder, posterior head which she hit on the staircase and low back. Denies any loss of consciousness. Denies being on any anticoagulants. She reports she took Excedrin prior to coming to the ED. She rates her pain at 6 out of 10, described as sharp and intermittent worse on touching the areas. Review of Systems Review of Systems Constitutional: Denies fever or chills [] Eyes: Denies change in visual acuity, redness, or eye pain [] HENT: Denies nasal congestion or sore throat [] Respiratory: Denies cough or shortness of breath [] Cardiovascular: No additional information not addressed in HPI [] GI: Denies abdominal pain, nausea, vomiting, bloody stools or diarrhea [] : Denies dysuria or hematuria [] Musculoskeletal: Reports left shoulder pain, low back Integument: Denies rash or skin lesions [] Neurologic: Reports posterior head pain, denies focal weakness or sensory changes [] All other systems were reviewed and found to be within normal limits, except as documented in this note. Allergies Allergies Allergies Coded Allergies Type Severity Reaction Last Updated Verified Sulfa (Sulfonamide Antibiotics) Allergy Severe GENERALIZED RASH 11/03/16 Yes doxycycline Allergy Severe BLISTERS ON SKIN - INTERNALLY FELT LIKE SHE WAS ON FIRE 11/03/16 Yes hydrochlorothiazide Adverse Reaction Severe HEART PALPITATIONS 11/03/16 Yes morphine Adverse Reaction Severe SEVERE HEADACE 11/03/16 Yes Physical Exam Physical Exam Constitutional: Well developed, well nourished, no acute distress, non-toxic a ppearance. [] HENT: Normocephalic, atraumatic, bilateral external ears normal, oropharynx moist, no oral exudates, nose normal. [] Eyes: PERRLA, EOMI, conjunctiva normal, no discharge. [] Neck: Normal range of motion, no tenderness, supple, no stridor. [] Cardiovascular:Heart rate regular rhythm, no murmur [] Lungs & Thorax: Bilateral breath sounds clear to auscultation [] Abdomen: Bowel sounds normal, soft, no tenderness, no masses, no pulsatile masses. [] Skin: Warm, dry, no erythema, no rash. [] Back: No tenderness, no CVA tenderness. [] Extremities: No tenderness, no cyanosis, no clubbing, ROM intact, no edema. [] Neurologic: Alert and oriented X 3, normal motor function, normal sensory function, no focal deficits noted. Cranial nerves II through XII intact Psychologic: Affect normal, judgement normal, mood normal. [] Current Patient Data Vital Signs Vital Signs Date Time Temp Pulse Resp B/P (MAP) Pulse Ox O2 Delivery O2 Flow Rate FiO2 10/11/19 15:51 97.3 88 14 176/110 (132) 97 Room Air 97.3 EKG EKG [] Radiology/Procedures Radiology/Procedures []REASON: fall pain PROCEDURE: CT HEAD AND CERVICAL SPINE WO CT HEAD AND CERVICAL SPINE WO Date: 10/11/2019 4:14 PM Clinical Indication: Fall, pain Comparison: CT head 10/31/2017. Technique: 5 mm axial tomographic images were obtained of the head without contrast. These were viewed on brain and bone windows. CT imaging of the cervical spine was performed without contrast. Coronal and sagittal reformatted images were performed. One or more of the following dose reduction techniques were utilized: Automated exposure control (AEC), Adjustment of mA and/or kV according to patient size, Use of iterative reconstruction technique such as ASiR, CT scan done according to ALARA and image gently/image wisely HEAD FINDINGS: The brain parenchyma is normal in attenuation. No intra- or extra-axial mass or fluid collection. No acute hemorrhage. The ventricles are normal in size, shape, and morphology. The hammonds-white matter junction is normal. The basilar cisterns are patent. The visualized paranasal sinuses are normal. The visualized portions of the orbits and globes are normal. The mastoid air cells are clear. No aggressive osseous lesion or fracture. CERVICAL SPINE FINDINGS: The cervical spine is normally aligned. No acute fracture. No aggressive lytic or blastic osseous lesion. Mild multilevel degenerative disc height loss. No high-grade spinal canal stenosis or neural foraminal narrowing. The thyroid gland is normal. No cervical lymphadenopathy. The visualized aerodigestive tract is unremarkable. The visualized lung apices are clear. IMPRESSION: 1. No acute intracranial process. 2. No acute osseous abnormality of the cervical spine. Electronically signed by: Lisa Kitchen MD (10/11/2019 4:27 PM) [facility] DICTATED and SIGNED BY: LISA KITCHEN MD DATE: 10/11/19 162 PROCEDURE: HUMERUS LEFT EXAM: Left shoulder, 3 views; left humerus, 2 views. HISTORY: Fall. Pain. COMPARISON: None. FINDINGS: 3 views of the left shoulder and 2 views left humerus are obtained. There is no fracture, dislocation or subluxation. IMPRESSION: No acute osseous finding. Electronically signed by: Keena Ferrell MD (10/11/2019 4:49 PM) [place] [id number] DICTATED and SIGNED BY: KEENA FERRELL MD DATE: 10/11/19 164 PROCEDURE: LUMBAR SPINE 2-3V EXAM: Lumbar spine, 4 views. HISTORY: Fall. Pain. COMPARISON: None. FINDINGS: 4 views of the lumbar spine are obtained. There is minimal lumbar levocurvature. There is minimal grade 1 anterolisthesis of L4 on L5 and L5 on S1. No fractures seen. The disc spaces are preserved. There is mild degenerative subchondral sclerosis involving the sacroiliac joints. IMPRESSION: 1. No acute osseous finding. 2. Minimal grade 1 anterolisthesis at the lower lumbar levels. Electronically signed by: Keena Ferrell MD (10/11/2019 4:50 PM) [place] [id number] DICTATED and SIGNED BY: KEENA FERRELL MD DATE: 10/11/19 165 PROCEDURE: SHOULDER 2+V LEFT EXAM: Left shoulder, 3 views; left humerus, 2 views. HISTORY: Fall. Pain. COMPARISON: None. FINDINGS: 3 views of the left shoulder and 2 views left humerus are obtained. There is no fracture, dislocation or subluxation. IMPRESSION: No acute osseous finding. Electronically signed by: Keena Ferrell MD (10/11/2019 4:49 PM) [place] [id number] DICTATED and SIGNED BY: KEENA FERRELL MD DATE: 10/11/19 6853 Course & Med Decision Making Course & Med Decision Making Pertinent Labs and Imaging studies reviewed. (See chart for details) This is a 54-year-old female patient presenting to the ED today with pain on the left side after falling down one step. Most of the pain is on the left shoulder, low back posterior head. CT of the head, cervical spine and negative for any acute findings, left shoulder x-rays, left humerus x-rays and lumbar spine x-rays are negative for any acute findings. Patient was discharged to home. OTC pain relievers. Follow- up with her own PCP in the course of this week or next week. Dragon Disclaimer Dragon Disclaimer This electronic medical record was generated, in whole or in part, using a voice recognition dictation system. Departure Departure Impression: Primary Impression: Fall down steps Additional Impressions: Scalp contusion Contusion of left shoulder Lumbar contusion Disposition: HOME, SELF-CARE Condition: STABLE Referrals: ROBERTO STUART MD (PCP) Follow-up in 1-2 weeks Patient Instructions: Contusion, [id number]-[id number], Fall Prevention and Home Safety Additional Instructions: You were evaluated in the emergency room after falling, you CT scan of the head, cervical spine and x-rays of the left shoulder, left humerus, and lumbar spine were negative for any acute findings. Try to ice and elevate the extremities. Take [id number] pain relievers as needed for pain. Follow-up with your own doctor in 1-2 weeks. Problem Qualifiers Primary Impression: Fall down steps Encounter type: initial encounter Qualified Codes: W10.8XXA - Fall (on) (from) other stairs and steps, initial encounter Additional Impressions: Scalp contusion Encounter type: initial encounter Qualified Codes: S00.03XA - Contusion of scalp, initial encounter Contusion of left shoulder Encounter type: initial encounter Qualified Codes: S40.012A - Contusion of left shoulder, initial encounter Lumbar contusion Encounter type: initial encounter Qualified Codes: S30.0XXA - Contusion of lower back and pelvis, initial encounter JEFF LAW APRN Oct 11, 2019 16:15
--- NOTE | 2019-10-11 16:30 | RAD ---
CT HEAD AND CERVICAL SPINE WO Date: 10/11/2019 4:14 PM Clinical Indication: Fall, pain Comparison: CT head 10/31/2017. Technique: 5 mm axial tomographic images were obtained of the head without contrast. These were viewed on brain and bone windows. CT imaging of the cervical spine was performed without contrast. Coronal and sagittal reformatted images were performed. One or more of the following dose reduction techniques were utilized: Automated exposure control (AEC), Adjustment of mA and/or kV according to patient size, Use of iterative reconstruction technique such as ASiR, CT scan done according to ALARA and image gently/image wisely HEAD FINDINGS: The brain parenchyma is normal in attenuation. No intra- or extra-axial mass or fluid collection. No acute hemorrhage. The ventricles are normal in size, shape, and morphology. The hammonds-white matter junction is normal. The basilar cisterns are patent. The visualized paranasal sinuses are normal. The visualized portions of the orbits and globes are normal. The mastoid air cells are clear. No aggressive osseous lesion or fracture. CERVICAL SPINE FINDINGS: The cervical spine is normally aligned. No acute fracture. No aggressive lytic or blastic osseous lesion. Mild multilevel degenerative disc height loss. No high-grade spinal canal stenosis or neural foraminal narrowing. The thyroid gland is normal. No cervical lymphadenopathy. The visualized aerodigestive tract is unremarkable. The visualized lung apices are clear. IMPRESSION: 1. No acute intracranial process. 2. No acute osseous abnormality of the cervical spine. Electronically signed by: Lex Kitchen MD (10/11/2019 4:27 PM) [id number]
--- NOTE | 2019-10-11 16:52 | RAD ---
EXAM: Left shoulder, 3 views; left humerus, 2 views. HISTORY: Fall. Pain. COMPARISON: None. FINDINGS: 3 views of the left shoulder and 2 views left humerus are obtained. There is no fracture, dislocation or subluxation. IMPRESSION: No acute osseous finding. Electronically signed by: Keena Lockhart MD (10/11/2019 4:49 PM) [id number]
--- NOTE | 2019-10-11 16:53 | RAD ---
EXAM: Lumbar spine, 4 views. HISTORY: Fall. Pain. COMPARISON: None. FINDINGS: 4 views of the lumbar spine are obtained. There is minimal lumbar levocurvature. There is minimal grade 1 anterolisthesis of L4 on L5 and L5 on S1. No fractures seen. The disc spaces are preserved. There is mild degenerative subchondral sclerosis involving the sacroiliac joints. IMPRESSION: 1. No acute osseous finding. 2. Minimal grade 1 anterolisthesis at the lower lumbar levels. Electronically signed by: Keena Lockhart MD (10/11/2019 4:50 PM) [place] [id number]
== END 2019-10-11 17:02 | disposition home or self-care (01) ==
LOC: ER 15:40
DX: S40.012A Contusion of left shoulder, initial encounter (principal); S30.0XXA Contusion of lower back and pelvis, initial encounter; S00.03XA Contusion of scalp, initial encounter; J44.9 Chronic obstructive pulmonary disease, unspecified; E78.00 Pure hypercholesterolemia, unspecified; I10 Essential (primary) hypertension; I25.10 Atherosclerotic heart disease of native coronary artery without angina pectoris; K58.9 Irritable bowel syndrome, unspecified; I25.2 Old myocardial infarction; E11.40 Type 2 diabetes mellitus with diabetic neuropathy, unspecified; Z90.710 Acquired absence of both cervix and uterus; Z88.1 Allergy status to other antibiotic agents; Z88.2 Allergy status to sulfonamides; Z88.5 Allergy status to narcotic agent; Z88.8 Allergy status to other drugs, medicaments and biological substances; W10.8XXA Fall (on) (from) other stairs and steps, initial encounter; Y93.89 Activity, other specified; Y92.89 Other specified places as the place of occurrence of the external cause; Y99.8 Other external cause status
CPT/HCPCS: 70450; 72100; 72125; 73030; 73060; 99284

== ENCOUNTER 2019-11-26 09:29 | Emergency (ER) | payer MEDICARE ==
[~2019-11-26] VITALS: Ht 162.6 cm; Wt 93.6 kg
[2019-11-26 10:00] LABS: BASO # 0.1 x10^3/uL (0.0-0.2); BASO % 1 % (0-3); EOS # 0.1 x10^3/uL (0.0-0.7); EOS % 1 % (0-3); HEMATOCRIT 42.9 % (36.0-47.0); HEMOGLOBIN 14.7 g/dL (12.0-15.5); LYMPH # 1.8 x10^3/uL (1.0-4.8); LYMPH % 23 % (24-48); MEAN CORPUSCULAR HEMOGLOBIN 30 pg (25-35); MEAN CORPUSCULAR HGB CONC 34 g/dL (31-37); MEAN CORPUSCULAR VOLUME 88 fL (79-100); MONO # 0.3 x10^3/uL (0.0-1.1); MONO % 4 % (0-9); NEUT # 5.6 x10^3/uL (1.8-7.7); NEUT % 71 % (31-73); PLATELET COUNT 286 x10^3/uL (140-400); RED BLOOD COUNT 4.86 x10^6/uL (3.50-5.40); RED CELL DISTRIBUTION WIDTH 14.1 % (11.5-14.5); WHITE BLOOD COUNT 7.8 x10^3/uL (4.0-11.0)
[2019-11-26] MEDS ORDERED: ASPIRIN CHEWABLE 81 MG TABLET. PO ONE (10:00)
--- NOTE | 2019-11-26 10:22 | RAD ---
Examination: PORTABLE CHEST 1V History: Chest pain Comparison/Correlation: 10/01/2019 chest x-ray Findings: Portable upright frontal view of the chest was obtained. Heart size and pulmonary vasculature are normal. No infiltrate or pleural effusion. Right medial basilar calcified granuloma is present. Bony structures are unremarkable. Impression: No suspicious process. Electronically signed by: Dorian Henderson MD (11/26/2019 10:19 AM) [id number]
[2019-11-26 10:26] LABS: PROTHROMBIN TIME PATIENT 13.1 SEC (11.7-14.0)
[2019-11-26] MEDS ORDERED: ASA/APAP/CAFFEINE 250/250/65MG TABLET. PO ONE (10:30)
[2019-11-26 10:52] LABS: CALCIUM 9.9 mg/dL (8.5-10.1); CREATININE 0.7 mg/dL (0.6-1.0); GFR 87.9; POTASSIUM 4.1 mmol/L (3.5-5.1)
[2019-11-26 10:58] LABS: ALBUMIN 3.6 g/dL (3.4-5.0); ALBUMIN/GLOBULIN RATIO 0.8 (1.0-1.7); TOTAL BILIRUBIN 0.4 mg/dL (0.2-1.0); TOTAL PROTEIN 8.3 g/dL (6.4-8.2)
--- NOTE | 2019-11-26 11:00 | EKG ---
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
--- NOTE | 2019-11-26 14:15 | PHYS DOC ---
Past Medical History Past Medical History: Hypertension Additional Past Medical Histor: CERVICAL CANCER, NEUROPATHY Past Surgical History: Cholecystectomy, Hysterectomy Additional Past Surgical Histo: CARDIAC CATH X3, TOE SX BOTH FEET Smoking Status: Never Smoker Alcohol Use: None Drug Use: Marijuana Adult General Chief Complaint Chief Complaint: CHEST PAIN HPI HPI Patient is a 54 year old female presenting with chief complaint chest pain. Really she is actually describing the onset of back pain about 4 days ago she said that it all started about a month ago she fell down the stairs she was seen in the emergency room she had x-rays and a CAT scan and everything checked out okay she just has not felt right since that time. She thinks she might have hurt her left shoulder over the last 4 days she states onset of pain around her left posterior scapula worse with lying flat lying on that her lying on the left side. It began over the last couple of days to spread out over bilateral ribs and now she is a was much worse she is having trouble sleeping [place] she can walk pretty well if anything walking makes it feel a little better is not exe rtional chest pain type of situation she tells me. Really no shortness of breath no fever minimal cough if any. She says that this does not feel like her previous heart pain she does want to be safe and came to get checked out. No leg swelling that is new Review of Systems Review of Systems Constitutional: Denies fever or chills [] Eyes: Denies change in visual acuity, redness, or eye pain [] HENT: Denies nasal congestion or sore throat [] Respiratory: GI: Denies abdominal pain, nausea, vomiting, bloody stools or diarrhea [] : Denies dysuria or hematuria [] Neurologic: Denies headache, focal weakness or sensory changes [] Endocrine: Denies polyuria or polydipsia [] All other systems were reviewed and found to be within normal limits, except as documented in this note. Current Medications Current Medications Current Medications Medications (Trade) Dose Ordered Sig/Vincent Start Time Stop Time Status Last Admin Dose Admin Acetaminophen/ Aspirin/Caffeine (Excedrin Migraine) 1 tab 1X ONCE 11/26/19 10:30 11/26/19 10:31 DC 11/26/19 10:24 1 TAB Aspirin (Children'S Aspirin) 324 mg 1X ONCE 11/26/19 10:00 11/26/19 10:01 DC 11/26/19 09:57 324 MG Allergies Allergies Allergies Coded Allergies Type Severity Reaction Last Updated Verified Sulfa (Sulfonamide Antibiotics) Allergy Severe GENERALIZED RASH 11/03/16 Yes doxycycline Allergy Severe BLISTERS ON SKIN - INTERNALLY FELT LIKE SHE WAS ON FIRE 11/03/16 Yes hydrochlorothiazide Adverse Reaction Severe HEART PALPITATIONS 11/03/16 Yes morphine Adverse Reaction Severe SEVERE HEADACE 11/03/16 Yes Physical Exam Physical Exam Constitutional: Well developed, well nourished, no acute distress, non-toxic appearance. [] HENT: Normocephalic, atraumatic, bilateral external ears normal, oropharynx moist, no oral exudates, nose normal. [] Eyes: PERRLA, EOMI, conjunctiva normal, no discharge. [] Neck: Normal range of motion, no tenderness, supple, no stridor. [] Cardiovascular:Heart rate regular rhythm, no murmur [] Lungs & Thorax: Bilateral breath sounds clear to auscultation [] Abdomen: Bowel sounds normal, soft, no tenderness, no masses, no pulsatile masses. [] Skin: Warm, dry, no erythema, no rash. [] Back: Definite reproducible back tenderness in the left paraspinous area at the medial edge of the scapula. There is also some bilateral chest wall tenderness anteriorly no trauma identified Extremities: No tenderness, no cyanosis, no clubbing, ROM intact, trace edema bilateral Neurologic: Alert and oriented X 3, normal motor function, normal sensory function, no focal deficits noted. [] Psychologic: Affect normal, judgement normal, mood normal. [] Current Patient Data Vital Signs Vital Signs Date Time Temp Pulse Resp B/P (MAP) Pulse Ox O2 Delivery O2 Flow Rate FiO2 11/26/19 11:42 92 135/92 (106) 97 Room Air 11/26/19 11:27 17 11/26/19 09:35 98.2 98.2 Lab Values Laboratory Tests Test 11/26/19 09:45 11/26/19 10:30 11/26/19 12:35 White Blood Count 7.8 x10^3/uL (4.0-11.0) Red Blood Count 4.86 x10^6/uL (3.50-5.40) Hemoglobin 14.7 g/dL (12.0-15.5) Hematocrit 42.9 % (36.0-47.0) Mean Corpuscular Volume 88 fL (79-100) Mean Corpuscular Hemoglobin 30 pg (25-35) Mean Corpuscular Hemoglobin Concent 34 g/dL (31-37) Red Cell Distribution Width 14.1 % (11.5-14.5) Platelet Count 286 x10^3/uL (140-400) Neutrophils (%) (Auto) 71 % (31-73) Lymphocytes (%) (Auto) 23 % (24-48) L Monocytes (%) (Auto) 4 % (0-9) Eosinophils (%) (Auto) 1 % (0-3) Basophils (%) (Auto) 1 % (0-3) Neutrophils # (Auto) 5.6 x10^3/uL (1.8-7.7) Lymphocytes # (Auto) 1.8 x10^3/uL (1.0-4.8) Monocytes # (Auto) 0.3 x10^3/uL (0.0-1.1) Eosinophils # (Auto) 0.1 x10^3/uL (0.0-0.7) Basophils # (Auto) 0.1 x10^3/uL (0.0-0.2) Prothrombin Time 13.1 SEC (11.7-14.0) Prothrombin Time INR 1.0 (0.8-1.1) D-Dimer (Emily) 0.36 ug/mlFEU (0.00-0.50) Sodium Level 135 mmol/L (136-145) L Potassium Level 4.1 mmol/L (3.5-5.1) Chloride Level 99 mmol/L (98-107) Carbon Dioxide Level 25 mmol/L (21-32) Anion Gap 11 (6-14) Blood Urea Nitrogen 18 mg/dL (7-20) Creatinine 0.7 mg/dL (0.6-1.0) Estimated GFR (Cockcroft-Gault) 87.9 BUN/Creatinine Ratio 26 (6-20) H Glucose Level 216 mg/dL (70-99) H Calcium Level 9.9 mg/dL (8.5-10.1) Total Bilirubin 0.4 mg/dL (0.2-1.0) Aspartate Amino Transferase (AST) 65 U/L (15-37) H Alanine Aminotransferase (ALT) 64 U/L (14-59) H Alkaline Phosphatase 133 U/L (46-116) H Troponin I Quantitative < 0.017 ng/mL (0.000-0.055) < 0.017 ng/mL (0.000-0.055) MT-Qet-F-Type Natriuretic Peptide 6 pg/mL (0-124) Total Protein 8.3 g/dL (6.4-8.2) H Albumin 3.6 g/dL (3.4-5.0) Albumin/Globulin Ratio 0.8 (1.0-1.7) L Laboratory Tests 11/26/19 09:45 Laboratory Tests 11/26/19 10:30 EKG EKG []EKG shows a normal sinus rhythm rate is borderline 101 no ischemia no STEMI QTC 449 interpreted by me the time of encounter Radiology/Procedures Radiology/Procedures [] Impressions: Comparison/Correlation: 10/01/2019 chest x-ray Findings: Portable upright frontal view of the chest was obtained. Heart size and pulmonary vasculature are normal. No infiltrate or pleural effusion. Right medial basilar calcified granuloma is present. Bony structures are unremarkable. Impression: No suspicious process. Electronically signed by: Dorian Estevez MD (11/26/2019 10:19 AM) [id number] DICTATED and SIGNED BY: DORIAN ESTEVEZ MD DATE: 11/26/19 1019 Course & Med Decision Making Course & Med Decision Making Pertinent Labs and Imaging studies reviewed. (See chart for details) []54-year-old female with chief complaint of chest pain. It really is of musculoskeletal type of clinical syndrome. Out of an abundance of caution and due to troponins that her negative d-dimer was negative I do not suspect pulmonary embolism patient felt somewhat better in the emergency room still had some pain with twisting motions. I did speak with Dr. Cast briefly reviewed case recent cath, given that he be reasonable for outpatient follow-up. Patient is agreeable to that as well Dragon Disclaimer Dragon Disclaimer This electronic medical record was generated, in whole or in part, using a voice recognition dictation system. Departure Departure Impression: Primary Impression: Musculoskeletal chest pain Disposition: 01 HOME, SELF-CARE Condition: STABLE Referrals: ROBERTO STUART MD (PCP) Patient Instructions: Chest Pain (Nonspecific), [id number] EHSAN AMIN MD Nov 26, 2019 14:15
[2019-11-26 14:24] VITALS: BP 144/92
== END 2019-11-26 14:52 | disposition home or self-care (01) ==
LOC: ER 09:29
DX: R07.89 Other chest pain (principal); I10 Essential (primary) hypertension; Z88.1 Allergy status to other antibiotic agents; Z88.2 Allergy status to sulfonamides; Z88.5 Allergy status to narcotic agent; Z88.8 Allergy status to other drugs, medicaments and biological substances
CPT/HCPCS: 36415; 71045; 80053; 83880; 84484; 85025; 85379; 85610; 93005; 99285-25

== ENCOUNTER 2020-06-03 21:04 | Emergency (ER) | payer MEDICARE ==
[~2020-06-03] VITALS: Ht 162.6 cm; Wt 95.0 kg
[2020-06-03 21:21] VITALS: BP 163/88
[2020-06-03] MEDS ORDERED: oxyCODONE/APAP 5/325 1 TAB TABLET PO ONE (21:45)
--- NOTE | 2020-06-03 22:43 | PHYS DOC ---
Past Medical History Past Medical History: Diabetes-Type II, Hypertension Additional Past Medical Histor: CERVICAL CANCER, NEUROPATHY Past Surgical History: Cholecystectomy, Hysterectomy Additional Past Surgical Histo: CARDIAC CATH X3, TOE SX BOTH FEET Smoking Status: Never Smoker Alcohol Use: None Drug Use: Marijuana General Adult EDM: Chief Complaint: MECHANICAL FALL HPI: HPI: Patient is a 55-year-old female who presents to the emergency room after having a fall from standing. Patient states she was doing dishes and slipped and fell on water. She landed down on her left knee and left arm. She denies hitting her head. She did not lose consciousness. She is complaining of left elbow, left knee, left ankle, left big toe pain. She states it is painful to try to move her leg. She denies any chest pain, shortness of breath, abdominal pain. Review of Systems: Review of Systems: General: Denies fever, chills, sweats, fatigue Eyes: Denies drainage, blurred vision, eye redness HENT: Denies rhinorrhea, sore throat, earache Respiratory: Denies cough, shortness of breath, wheezing Cardiac: Denies edema, palpitations, chest pain GI: Denies abdominal pain, Nausea, vomiting MSK: Denies back pain, neck pain Skin: Denies rash, jaundice Neuro: Denies headache, dizziness Psychiatric: Denies SI/HI Heart Score: Risk Factors: Risk Factors: DM, Current or recent (<one month) smoker, HTN, HLP, family history of CAD, obesity. Risk Scores: Score 0 - 3: 2.5% MACE over next 6 weeks - Discharge Home Score 4 - 6: 20.3% MACE over next 6 weeks - Admit for Clinical Observation Score 7 - 10: 72.7% MACE over next 6 weeks - Early Invasive Strategies Current Medications: Current Medications Medications (Trade) Dose Ordered Sig/Vincent Start Time Stop Time Status Last Admin Dose Admin Oxycodone/ Acetaminophen (Percocet 5/325) 1 tab 1X ONCE 06/03/20 21:45 06/03/20 21:46 DC 06/03/20 22:04 1 TAB Allergies: Allergies: Allergies Coded Allergies Type Severity Reaction Last Updated Verified Sulfa (Sulfonamide Antibiotics) Allergy Severe GENERALIZED RASH 11/03/16 Yes doxycycline Allergy Severe BLISTERS ON SKIN - INTERNALLY FELT LIKE SHE WAS ON FIRE 11/03/16 Yes hydrochlorothiazide Adverse Reaction Severe HEART PALPITATIONS 11/03/16 Yes morphine Adverse Reaction Severe SEVERE HEADACE 11/03/16 Yes Physical Exam: PE: General: Awake, alert, NAD. Well Nourished, well hydrated. Cooperative HEENT: Atraumatic, EOMI, PERRL, airway patent, moist oral mucosa, no nasal septal hematoma, no facial crepitus or deformity Neck: Supple, trachea midline, no C-spine tenderness Respiratory: CTA bilaterally, normal effort, no wheezing/crackles, no crepitus CV: RRR, no murmur, cap refill <2, 2+ bilateral radial/DP pulses GI: Soft, nondistended, nontender, no masses MSK: pelvis stable and nontender. R arm/leg: FROM, no tenderness, no signs of trauma. L elbow: diffuse tenderness, no swelling. L knee: swelling, no warmth, no erythema, no abrasions, diffuse tenderness. L ankle: 2+ pulses, diffuse tenderness. L foot: diffuse tenderness, no swelling, no skin changes Skin: Warm, dry, intact Neuro: A&O x3, speech NL, sensory and motor grossly intact, no focal deficits Psych: Normal affect, normal mood, not suicidal or homicidal Current Patient Data: Vital Signs: Vital Signs Date Time Temp Pulse Resp B/P (MAP) Pulse Ox O2 Delivery O2 Flow Rate FiO2 06/03/20 21:21 98.7 82 18 163/88 (113) 98 Room Air 98.7 EKG: EKG: [] Radiology/Procedures: Radiology/Procedures: [] Course & Med Decision Making: Course & Med Decision Making Pertinent Labs and Imaging studies reviewed. (See chart for details) Patient is a 55-year-old female who presents to the emergency room after having a fall from standing. Exam was limited due to patient stating that it hurt too much to be touched. She has left elbow pain without any signs of swelling or abrasions. She does have left knee swelling. There are no abrasions or bruising on the knee. She has left ankle and foot tenderness without any swelling or signs of abrasions or bruising. She states her last tetanus shot was 4 years ago. Patient is requesting narcotic pain medicine. X-rays were ordered. X-rays overall were normal. The radiologist did recommend a repeat lateral elbow which appears normal. And a CT of the knee which was done. He does not see a definitive fracture at this time. I discussed with her that she will need to follow-up with orthopedic surgery if she continues to have pain. We have discussed rice therapy. Patient's test results and vitals while in the ED were fully reviewed and discussed with the patient. Patient is stable and at this time does not need admission to the hospital. We have discussed strict return precautions and the importance of following up with their Primary Care Physician. Patient stated understanding and was given an opportunity to ask any questions. Patient is in agreement with plan. Dragon Disclaimer: Dragon Disclaimer: This electronic medical record was generated, in whole or in part, using a voice recognition dictation system. Departure Departure Impression: Primary Impression: Fall from standing Additional Impressions: Left elbow contusion Left knee pain Left ankle pain Left foot pain Disposition: 01 HOME, SELF-CARE Condition: STABLE Referrals: ROBERTO STUART MD (PCP) Patient Instructions: Fall Prevention and Home Safety, Knee Effusion, Knee Immobilizer, [id number] Justicifation of Admission Dx: Justifications for Admission: Justification of Admission Dx: N/A LENY VILLEDA MD Jun 03, 2020 22:43
--- NOTE | 2020-06-03 22:45 | RAD ---
Examination: 3 views of the left knee, 3 views of the left ankle, 3 views of the left elbow, 3 views of the left foot HISTORY: History of fall, pain COMPARISON: None available Findings/ impression: Examination limited osseous demineralization. Moderate left knee joint effusion is identified. Questionable lucency identified in the lateral femoral condyle. Consider CT knee for further evaluation. The alignment of the ankle mortise grossly appears unremarkable. Evaluation the elbow joint is limited due to positioning. There is mild cortical step-off identified in the lateral aspect of the radial head could be a small osteophyte or fracture.. Consider repeat radiograph with better positioning particularly lateral view The alignment of the tarsal bones, tarsometatarsal joints, tarsophalangeal joints grossly appears unremarkable. Small bony density identified just superior to the distal aspect of the talus could be a small osteophyte or a small examination fracture. Electronically signed by: Geoffrey Marroquin MD (06/03/2020 10:42 PM) [id number]
[2020-06-04] MEDS ORDERED: KETOROLAC 30 MG/ML VIAL. IVP ONE (00:15)
--- NOTE | 2020-06-04 00:43 | RAD ---
STUDY: CT of the left lower extremity without contrast INDICATION: Fall. Knee pain. COMPARISON: 06/03/2020 Radiographs. TECHNIQUE: Axial CT imaging of the left lower extremity/knee performed without contrast. Coronal and sagittal reformats were obtained. One or more of the following individualized dose reduction techniques were utilized for this examination: 1. Automated exposure control 2. Adjustment of the mA and/or kV according to patient size 3. Use of iterative reconstruction technique. FINDINGS: Bones: Limited assessment for subtle fractures given osteopenia. No depressed tibial plateau fracture. Faint articular surface irregularity at a few locations such as at the periphery of the weightbearing lateral femoral condyle (image 35 series 8) but it is difficult to confirm if this is acute. Chronic ossific fragment adjacent to the extra-articular lateral femoral condyle. Tricompartmental osteophytosis. Chronic osseous remodeling at the tibial eminence and at the margins of the intercondylar notch. Mild lateral patellar tilt/subluxation in the setting of a large joint effusion. Soft tissues: Prominent knee joint effusion with a hematocrit level (image 27 series 2). Thin fat density subjacent to the quadriceps tendon, image 27 series 2, difficult to discern if layering fat but possible. Ill-defined popliteal fossa edema or hemorrhage. No localized hematoma adjacent to the popliteal artery. The PCL appears intact. The integrity of the ACL is uncertain. No gross disruption of the extensor mechanism. Ossified loose body at the suprapatellar recess. Chronic mineralization in the region of the lateral meniscus anterior root insertion. IMPRESSION: 1. Limited study for the detection of subtle fractures given osteopenia. There is a prominent knee joint effusion with a hematocrit level and possible tiny amount of intra-articular fat (image 27 series 2), as well as popliteal fossa edema, consistent with trauma but there is no depressed tibial plateau fracture or displaced fracture elsewhere. Subtle articular surface irregularity at the weightbearing lateral femoral condyle (35 series 8) that may be a very mild impaction fracture but difficult to confirm. Eventual MRI would better assess for osseous injury as well as determine ligament and tendon integrity. 2. The PCL appears intact. It is uncertain if the ACL is intact. 3. Tricompartmental osteoarthrosis. Small ossified loose body at the suprapatellar recess. Electronically signed by: TANIKA DESHPANDE MD (06/04/2020 12:40 AM) [id number]
--- NOTE | 2020-06-04 02:20 | RAD ---
Study: CR ELBOW LEFT 2V Indication: Possible fracture. Obtainment of an additional radiographic view. Comparison: 06/03/2020 at 2140 hours Findings: The anterior humeral fat pad is elevated. Despite obtainment of an additional lateral view no definite radial head fracture is seen. Thin focus of increased density projecting posterior to the olecranon process does not appear to be osseous in origin. Reticulation of the subcutaneous fat along the dorsum aspect of the proximal forearm. Impression: There is elevation of the anterior humeral fat pad suggesting an elbow joint effusion but no fracture is definitively seen. Follow-up radiographs in 10-14 days could be performed to assess for fracture healing. Electronically signed by: TANIKA DESHPANDE MD (06/04/2020 2:16 AM) [id number]
== END 2020-06-04 02:30 | disposition home or self-care (01) ==
LOC: ER 21:04
DX: S50.02XA Contusion of left elbow, initial encounter (principal); M25.562 Pain in left knee; M25.572 Pain in left ankle and joints of left foot; M79.672 Pain in left foot; I10 Essential (primary) hypertension; F12.90 Cannabis use, unspecified, uncomplicated; E11.40 Type 2 diabetes mellitus with diabetic neuropathy, unspecified; Z90.89 Acquired absence of other organs; Z90.710 Acquired absence of both cervix and uterus; Z98.890 Other specified postprocedural states; W01.0XXA Fall on same level from slipping, tripping and stumbling without subsequent striking against object, initial encounter; Y93.89 Activity, other specified; Y92.89 Other specified places as the place of occurrence of the external cause; Y99.8 Other external cause status
CPT/HCPCS: 73070; 73080; 73562; 73610; 73630; 73700; 96374; 99284; J1885

== ENCOUNTER → 2021-06-19 | Outpatient (CLI) | payer MEDICARE ==
[~2021-06-19] MED LIST changes: +AMLO-187 PO; -AMLO10TA8 PO; +GEMF600T20 PO; -GEMF600T8 PO
--- NOTE | 2021-06-19 15:57 | CARD ---
MR#: [id number] Date of Study: 06/19/2021 Ordering Physician: RISHI ELLIOTT, Referring Physician: RISHI ELLIOTT, Tech: Bertha Recio [facility] APPROV[facility] REPORT EXAM: Two-dimensional and M-mode echocardiogram with Doppler and color Doppler. Other Information Quality : AverageTechnically LimitedHR: 94bpm Rhythm : NSR INDICATION Dyspnea RISK FACTORS Hypertension Obesity Diabetes Smoking 2D DIMENSIONS RVDd2.4 (2.9-3.5cm)Left Atrium(2D)3.6 (1.6-4.0cm) IVSd1.4 (0.7-1.1cm)Aortic Root(2D)2.7 (2.0-3.7cm) LVDd3.9 (3.9-5.9cm)LVOT Diameter1.8 (1.8-2.4cm) PWd1.4 (0.7-1.1cm)LVDs2.8 (2.5-4.0cm) FS (%) 27.5 %SV35.5 ml Aortic Valve AoV Peak Maurisio.140.2cm/sAoV VTI27.7cm AO Peak GR.7.9mmHgLVOT Peak Maurisio.131.9cm/s AO Mean GR.3mmHgAVA (VMAX)2.41cm2 Tricuspid Valve TR P. [id number]/sTR Peak Gr.21mmHg LEFT VENTRICLE The left ventricle is normal size. There is mild concentric left ventricular hypertrophy. The left ve ntricular systolic function is normal and the ejection fraction is within normal range. Estimated ej ection fraction is 60%. There is normal LV segmental wall motion. The left ventricular diastolic func tion and filling is normal for age. RIGHT VENTRICLE The right ventricle is normal size. There is normal right ventricular wall thickness. The right ventr icular systolic function is normal. ATRIA The left atrium size is normal. The right atrium size is normal. The interatrial septum is intact wit h no evidence for an atrial septal defect or patent foramen ovale as noted on 2-D or Doppler imaging. AORTIC VALVE The aortic valve is normal in structure and function. Doppler and Color Flow revealed no significant aortic regurgitation. There is no significant aortic valvular stenosis. MITRAL VALVE The mitral valve is normal in structure and function. There is no evidence of mitral valve prolapse. There is no mitral valve stenosis. Doppler and Color Flow revealed no mitral valve regurgitation note d. TRICUSPID VALVE The tricuspid valve is normal in structure and function. Doppler and Color Flow revealed trace tricus pid regurgitation. Estimated PAP 25 mmHg. PULMONIC VALVE The pulmonary valve is normal in structure and function. Doppler and Color Flow revealed no pulmonic valvular regurgitation. GREAT VESSELS The aortic root is normal in size. The ascending aorta is normal in size. The IVC was not visualized. PERICARDIAL EFFUSION There is no evidence of significant pericardial effusion. Critical Notification Critical Value: No <Conclusion> The left ventricle is normal size. The left ventricular systolic function is normal and the ejection fraction is within normal range. Estimated ejection fraction is 60%. There is mild concentric left ventricular hypertrophy. Doppler and Color Flow revealed no significant aortic regurgitation. There is no significant aortic valvular stenosis. Doppler and Color Flow revealed no mitral valve regurgitation noted. Doppler and Color Flow revealed trace tricuspid regurgitation. Estimated PAP 25 mmHg. Signed by : Otis Pelayo MD Electronically Approved : 06/19/2021 15:56:24
--- NOTE | 2021-06-19 17:39 | RAD ---
MR#: [id number] Date of Study: 06/19/2021 Ordering Physician: RISHI ELLIOTT, Referring Physician: RISHI ELLIOTT, Tech: Krissy Braxton RDMS, RVT, RTR APPROVED REPORT Patient Location: OUT-PATIENT Exam Type: Ankle to Brachial Index Indications PAD Risk Factors Hypertension Cardiac Disease Diabetes Pressures/Indices RightABI LeftABI Brachial [id number] [id number] Ankle(PT) 167mmHgAnkle(PT) 166mmHg Ankle(DP) 169mmHgAnkle(DP) 162mmHg Critical Notification Critical Value: No <Conclusion> 1. Normal bilateral ELIZABETH Signed by : Rishi Elliott, Electronically Approved : 06/19/2021 17:39:21
--- NOTE | 2021-06-19 17:41 | RAD ---
MR#: [id number] Date of Study: 06/19/2021 Ordering Physician: RISHI ELLIOTT, Referring Physician: RISHI ELLIOTT, Tech: Krissy Braxton RDMS, RVT, RTR APPROVED REPORT Patient Location: OUT-PATIENT Indications PAD Risk Factors Hypertension Cardiac Disease Diabetes VELOCITY AND DOPPLER WAVEFORM ANALYSIS RIGHT cm/secWaveformSeverity LEFT cm/secWaveform Severity pCFA pCFA 116.6 dCFA 101.2dCFA Prof Fem Art. 60.7Prof Fem Art. 53.6 Fem Art Prox. 95.4Fem Art Prox. 110.6 Fem Art Mid. 96.2Fem Art Mid. 91.8 Fem Art Dist. 86.0Fem Art Dist. 86.0 Pop Art(BK) 50.4Pop Art(BK) 51.0 [employer] Prox. 40.3PTA Prox. 42.1 P[employer]TER Dist. 85.2PTA Dist. 45.2 Per Art Prox. 78.4Per Art Prox. 58.4 JERO Prox. 69.4ATA Prox. 55.2 DPA 46DPA 39 Findings Grayscale images of the bilateral lower extremity arterial vessels demonstrates mild to moderate diff use atherosclerosis. Waveforms are mostly biphasic and triphasic throughout the lower extremities. No focal high-grade stenosis identified above the knee bilaterally. Below the knee there is three-ve ssel runoff bilaterally. Probable small vessel disease at the level of the dorsalis pedis artery. Critical Notification Critical Value: No <Conclusion> 1. No significant bilateral lower extremity arterial disease noted Signed by : Rishi Elliott, Electronically Approved : 06/19/2021 17:40:57
--- NOTE | 2021-06-19 17:43 | RAD ---
MR#: [id number] Date of Study: 06/19/2021 Ordering Physician: RISHI ELLIOTT, Referring Physician: RISHI ELLIOTT, Tech: Krissy Braxton, RANDOLPH, RVT, RTR APPROVED REPORT Patient Location: OUT-PATIENT Laterality:Bilateral Indications Bruit Risk Factors Hypertension: Diabetes Doppler Spectral Velocity Analysis Right Left pCCA 79/15 cm/spCCA 72/21 cm/s mCCA 61/17 cm/smCCA 59/17 cm/s dCCA 52/16 cm/sdCCA 64/21 cm/s ECA 51/12 cm/sECA 51/12 cm/s pICA 41/12 cm/spICA 43/18 cm/s [place] 40/16 cm/smICA 64/27 cm/s dICA 39/17 cm/sdICA 69/29 cm/s Vert. 21/5 cm/sVert. 38/16 cm/s ICA/CCA 0.52ICA/CCA 0.96 Findings Grayscale images demonstrate mild diffuse intimal hyperplasia and minimal plaque. Spectral waveforms and color Doppler are grossly within normal limits. Velocities overall are grossly within normal limits and suggestive of 0 to less than 50% stenosis. Normal ICA to CCA ratios bilaterally. Normal antegrade vertebral velocities bilaterally. Critical Notification Critical Value: No <Conclusion> 1. No significant bilateral extracranial carotid occlusive disease. Signed by : Rishi Elliott, Electronically Approved : 06/19/2021 17:42:46
== END ==
LOC: US 12:43
PROVIDERS: ATTEND Internal Medicine Cardiovascular Disease
DX: I51.7 Cardiomegaly (principal); I70.203 Unspecified atherosclerosis of native arteries of extremities, bilateral legs; I77.3 Arterial fibromuscular dysplasia; I25.10 Atherosclerotic heart disease of native coronary artery without angina pectoris; R09.89 Other specified symptoms and signs involving the circulatory and respiratory systems; I10 Essential (primary) hypertension; E11.9 Type 2 diabetes mellitus without complications; R06.00 Dyspnea, unspecified; F17.210 Nicotine dependence, cigarettes, uncomplicated; E66.9 Obesity, unspecified; Z68.43 Body mass index [BMI] 50.0-59.9, adult
CPT/HCPCS: 93306; 93880; 93922; 93925

== ENCOUNTER 2021-08-12 12:54 | Emergency (ER) | payer MEDICARE ==
[~2021-08-12] VITALS: Ht 162.6 cm; Wt 95.4 kg
[~2021-08-12 12:54] MED LIST changes: +CYCL10TA19 PO; -CYCL10TA2 PO
[2021-08-12 13:25] VITALS: BP 153/89
[2021-08-12] MEDS ORDERED: IV NORMAL SALINE 1000ML BAG 1,000 ML IV ONE (14:00)
[2021-08-12] MEDS ORDERED: fentaNYL PF VIAL 100 MCG/2 ML VIAL IVP ONE ×2 (14:00→15:15)
[2021-08-12 14:05] LABS: BASO # 0.1 x10^3/uL (0.0-0.2); BASO % 1 % (0-3); EOS # 0.2 x10^3/uL (0.0-0.7); EOS % 2 % (0-3); HEMATOCRIT 40.1 % (36.0-47.0); HEMOGLOBIN 13.7 g/dL (12.0-15.5); LYMPH # 2.1 x10^3/uL (1.0-4.8); LYMPH % 18 % (24-48); MEAN CORPUSCULAR HEMOGLOBIN 31 pg (25-35); MEAN CORPUSCULAR HGB CONC 34 g/dL (31-37); MEAN CORPUSCULAR VOLUME 90 fL (79-100); MONO # 0.5 x10^3/uL (0.0-1.1); MONO % 4 % (0-9); NEUT # 8.5 x10^3/uL (1.8-7.7); NEUT % 75 % (31-73); PLATELET COUNT 309 x10^3/uL (140-400); RED BLOOD COUNT 4.47 x10^6/uL (3.50-5.40); RED CELL DISTRIBUTION WIDTH 13.8 % (11.5-14.5); WHITE BLOOD COUNT 11.3 x10^3/uL (4.0-11.0)
[2021-08-12 14:07] LABS: BILIRUBIN,URINE NEGATIVE (NEG); CLARITY,URINE CLEAR; COLOR,URINE YELLOW; NITRITE,URINE NEGATIVE (NEG); PROTEIN,URINE NEGATIVE (NEG-TRACE)
[2021-08-12 14:21] LABS: BACTERIA,URINE 0 /HPF (0-FEW); RBC,URINE 0 /HPF (0-2)
[2021-08-12 14:23] LABS: CALCIUM 9.4 mg/dL (8.5-10.1); CREATININE 0.7 mg/dL (0.6-1.0); GFR 87.2; POTASSIUM 4.2 mmol/L (3.5-5.1)
[2021-08-12 14:29] LABS: ALBUMIN 3.8 g/dL (3.4-5.0); ALBUMIN/GLOBULIN RATIO 0.8 (1.0-1.7); TOTAL BILIRUBIN 0.2 mg/dL (0.2-1.0); TOTAL PROTEIN 8.7 g/dL (6.4-8.2)
[2021-08-12] MEDS ORDERED: CONTRAST GIVEN. MC PRN (15:00)
[2021-08-12] MEDS ORDERED: cefTRIAXone IV Push 1 GM VIAL. IVP ONE (15:00)
[2021-08-12] MEDS ORDERED: IOHEXOL 300 MG/ML 100ML VIAL. IV ONE (15:00)
--- NOTE | 2021-08-12 15:13 | RAD ---
Axial CT of the abdomen and pelvis were obtained after the administration of 75 cc Omnipaque 300. Ora l contrast was also administered. Coronal and sagittal reformats are also available. Indication: Lower abdominal pain, history of diverticulitis. Comparison: 10/01/2019. Findings: Right lower lobe calcified granulomas identified. The lung bases are otherwise clear. The heart is en larged but stable. There are calcified granulomas identified in the spleen. Patient status post kristie cystectomy. Liver is slightly hypodense relative to the spleen. The adrenals, kidneys pancreas and sp gena are unremarkable in appearance. Stable mild right pelviectasis. The stomach, small and large bowel are nondistended. There is mild inflammatory change of the mesente ry surrounding the sigmoid colon. Multiple sigmoid diverticula are identified. The appendix is visual ized and is unremarkable in appearance. No free air or fluid. Patient status post hysterectomy. Abdom inal aorta is calcified without aneurysmal dilation or obvious significant stenosis. Portal, superior mesenteric and splenic veins are normal in appearance. There is age-appropriate degenerative change of the bony structures. IMPRESSION: 1. Findings consistent with mild sigmoid diverticulitis. 2. Mild hepatic steatosis. Exposure: One or more of the following individualized dose reduction techniques were utilized for thi s examination: 1. Automated exposure control 2. Adjustment of the mA and/or kV according to patient size 3. Use of iterative reconstruction technique Electronically signed by: Pipe Edge MD (08/12/2021 3:10 PM) [facility]
--- NOTE | 2021-08-12 15:38 | PHYS DOC ---
Past Medical History Past Medical History: Diabetes-Type II, Hypertension Additional Past Medical Histor: CERVICAL CANCER, NEUROPATHY Past Surgical History: Cholecystectomy, Hysterectomy Additional Past Surgical Histo: CARDIAC CATH X3, TOE SX BOTH FEET Smoking Status: Never Smoker Alcohol Use: None Drug Use: Marijuana General Adult EDM: Chief Complaint: PELVIC PAIN HPI: HPI: Patient is a 56 year old female with history of diabetes type 2, hypertension, diverticulitis, who presents to the ED today complaining of a sharp 6 out of 10 intermittent lower abdominal pain, symptoms have been going on for 2 days. Patient denies any nausea, vomiting or diarrhea. She states she could likely have diverticulitis and or UTI. She is reporting some dysuria. She states nothing exacerbates or is relieving her symptoms. She states she called the PCP yesterday and was started on cephalexin which is not improving her symptoms. Review of Systems: Review of Systems: Constitutional: Denies fever or chills. [] Eyes: Denies change in visual acuity. [] HENT: Denies nasal congestion or sore throat. [] Respiratory: Denies cough or shortness of breath. [] Cardiovascular: Denies chest pain or edema. [] GI: Reports left lower quadrant abdominal pain, denies nausea, vomiting, bloody stools or diarrhea. [] : Reports dysuria Musculoskeletal: Denies back pain or joint pain. [] Integument: Denies rash. [] Neurologic: Denies headache, focal weakness or sensory changes. [] Endocrine: Denies polyuria or polydipsia. [] Psychiatric: Denies depression or anxiety. [] Heart Score: C/O Chest Pain: N/A Risk Factors: Risk Factors: DM, Current or recent (<one month) smoker, HTN, HLP, family history of CAD, obesity. Risk Scores: Score 0 - 3: 2.5% MACE over next 6 weeks - Discharge Home Score 4 - 6: 20.3% MACE over next 6 weeks - Admit for Clinical Observation Score 7 - 10: 72.7% MACE over next 6 weeks - Early Invasive Strategies Current Medications: Current Medications Medications (Trade) Dose Ordered Sig/Vincent Start Time Stop Time Status Last Admin Dose Admin Ceftriaxone Sodium (Rocephin) 1 gm 1X ONCE 08/12/21 15:00 08/12/21 15:01 DC Fentanyl Citrate (Fentanyl 2ml Vial) 50 mcg 1X ONCE 08/12/21 15:15 08/12/21 15:16 DC Info (CONTRAST GIVEN -- Rx MONITORING) 1 each PRN DAILY PRN 08/12/21 15:00 08/14/21 14:59 Iohexol (Omnipaque 300 Mg/ml) 75 ml 1X ONCE 08/12/21 15:00 08/12/21 15:01 DC 08/12/21 15:00 75 ML Sodium Chloride 1,000 ml @ 1,000 mls/hr 1X ONCE 08/12/21 14:00 08/12/21 14:59 DC 08/12/21 14:10 1,000 MLS/HR Allergies: Allergies: Allergies Coded Allergies Type Severity Reaction Last Updated Verified Sulfa (Sulfonamide Antibiotics) Allergy Severe GENERALIZED RASH 11/03/16 Yes doxycycline Allergy Severe BLISTERS ON SKIN - INTERNALLY FELT LIKE SHE WAS ON FIRE 11/03/16 Yes hydrochlorothiazide Adverse Reaction Severe HEART PALPITATIONS 11/03/16 Yes morphine Adverse Reaction Severe SEVERE HEADACE 11/03/16 Yes Physical Exam: PE: Constitutional: Well developed, well nourished, no acute distress, non-toxic appearance. [] HENT: Normocephalic, atraumatic, bilateral external ears normal, oropharynx moist, no oral exudates, nose normal. [] Eyes: PERRLA, EOMI, conjunctiva normal, no discharge. [] Neck: Normal range of motion, no tenderness, supple, no stridor. [] Cardiovascular:Heart rate regular rhythm, no murmur [] Lungs & Thorax: Bilateral breath sounds clear to auscultation [] Abdomen: Obese abdomen with abdominal flap, tenderness diffusely on the lower abdomen bowel sounds normal, soft, no masses, no pulsatile masses. [] Skin: Warm, dry, no erythema, no rash. [] Back: No tenderness, no CVA tenderness. [] Extremities: No tenderness, no cyanosis, no clubbing, ROM intact, no edema. [] Neurologic: Alert and oriented X 3, normal motor function, normal sensory function, no focal deficits noted. [] Psychologic: Affect normal, judgement normal, mood normal. [] Current Patient Data: Labs: Laboratory Tests Test 08/12/21 13:20 08/12/21 13:50 Urine Collection Type Unknown Urine Color Yellow Urine Clarity Clear Urine pH 6.0 (<5.0-8.0) Urine Specific [place] 1.020 (1.000-1.030) Urine Protein Negative mg/dL (NEG-TRACE) Urine Glucose (UA) Negative mg/dL (NEG) Urine Ketones (Stick) Negative mg/dL (NEG) Urine Blood Negative (NEG) Urine Nitrite Negative (NEG) Urine Bilirubin Negative (NEG) Urine Urobilinogen Dipstick 1.0 mg/dL (0.2 mg/dL) Urine Leukocyte Esterase Moderate (NEG) Urine RBC 0 /HPF (0-2) Urine WBC 5-10 /HPF (0-4) Urine Squamous Epithelial Cells Few /LPF Urine Transitional Epithelial Cells Occ /LPF Urine Bacteria 0 /HPF (0-FEW) Urine Mucus Slight /LPF White Blood Count 11.3 x10^3/uL (4.0-11.0) H Red Blood Count 4.47 x10^6/uL (3.50-5.40) Hemoglobin 13.7 g/dL (12.0-15.5) Hematocrit 40.1 % (36.0-47.0) Mean Corpuscular Volume 90 fL (79-100) Mean Corpuscular Hemoglobin 31 pg (25-35) Mean Corpuscular Hemoglobin Concent 34 g/dL (31-37) Red Cell Distribution Width 13.8 % (11.5-14.5) Platelet Count 309 x10^3/uL (140-400) Neutrophils (%) (Auto) 75 % (31-73) H Lymphocytes (%) (Auto) 18 % (24-48) L Monocytes (%) (Auto) 4 % (0-9) Eosinophils (%) (Auto) 2 % (0-3) Basophils (%) (Auto) 1 % (0-3) Neutrophils # (Auto) 8.5 x10^3/uL (1.8-7.7) H Lymphocytes # (Auto) 2.1 x10^3/uL (1.0-4.8) Monocytes # (Auto) 0.5 x10^3/uL (0.0-1.1) Eosinophils # (Auto) 0.2 x10^3/uL (0.0-0.7) Basophils # (Auto) 0.1 x10^3/uL (0.0-0.2) Sodium Level 137 mmol/L (136-145) Potassium Level 4.2 mmol/L (3.5-5.1) Chloride Level 99 mmol/L (98-107) Carbon Dioxide Level 28 mmol/L (21-32) Anion Gap 10 (6-14) Blood Urea Nitrogen 14 mg/dL (7-20) Creatinine 0.7 mg/dL (0.6-1.0) Estimated GFR (Cockcroft-Gault) 87.2 BUN/Creatinine Ratio 20 (6-20) Glucose Level 152 mg/dL (70-99) H Calcium Level 9.4 mg/dL (8.5-10.1) Total Bilirubin 0.2 mg/dL (0.2-1.0) Aspartate Amino Transferase (AST) 36 U/L (15-37) Alanine Aminotransferase (ALT) 58 U/L (14-59) Alkaline Phosphatase 123 U/L (46-116) H Total Protein 8.7 g/dL (6.4-8.2) H Albumin 3.8 g/dL (3.4-5.0) Albumin/Globulin Ratio 0.8 (1.0-1.7) L Lipase 112 U/L (73-393) Laboratory Tests 08/12/21 13:50 Laboratory Tests 08/12/21 13:50 Vital Signs: Vital Signs Date Time Temp Pulse Resp B/P (MAP) Pulse Ox O2 Delivery O2 Flow Rate FiO2 08/12/21 13:25 98.7 100 20 153/89 (110) 98 Room Air 98.7 EKG: EKG: [] Radiology/Procedures: Radiology/Procedures: []PROCEDURE: CT ABD PELV W/ IV CONTRST ONLY Axial CT of the abdomen and pelvis were obtained after the administration of 75 cc Omnipaque 300. Oral contrast was also administered. Coronal and sagittal reformats are also available. Indication: Lower abdominal pain, history of diverticulitis. Comparison: 10/01/2019. Findings: Right lower lobe calcified granulomas identified. The lung bases are otherwise clear. The heart is enlarged but stable. There are calcified granulomas identified in the spleen. Patient status post cholecystectomy. Liver is slightly hypodense relative to the spleen. The adrenals, kidneys pancreas and spleen are unremarkable in appearance. Stable mild right pelviectasis. The stomach, small and large bowel are nondistended. There is mild inflammatory change of the mesentery surrounding the sigmoid colon. Multiple sigmoid diverticula are identified. The appendix is visualized and is unremarkable in appearance. No free air or fluid. Patient status post hysterectomy. Abdominal aorta is calcified without aneurysmal dilation or obvious significant stenosis. Portal, superior mesenteric and splenic veins are normal in appearance. There is age-appropriate degenerative change of the bony structures. IMPRESSION: 1. Findings consistent with mild sigmoid diverticulitis. 2. Mild hepatic steatosis. Exposure: One or more of the following individualized dose reduction techniques were utilized for this examination: 1. Automated exposure control 2. Adjustment of the mA and/or kV according to patient size 3. Use of iterative reconstruction technique Electronically signed by: Pipe Crews MD (08/12/2021 3:10 PM) [facility] DICTATED and SIGNED BY: PIPE CREWS MD DATE: 08/12/21 [id number] 0 Course & Med Decision Making: Course & Med Decision Making Pertinent Labs and Imaging studies reviewed. (See chart for details) This a 56-year-old female patient presented to the ED today with left lower quadrant abdominal pain and dysuria, symptoms for 2 days. Currently on cephalexin since yesterday with no improvement. Urine positive for UTI, CBC with a WBC of 11.2, CMP with nothing really acute, CT of the abdomen and pelvic was noted for diverticulitis Patient was given Rocephin IV in the ED. Discharged on Augmentin. Provided instructions to follow-up with her PCP and GI. Kelly Disclaimer: Kelly Disclaimer: This electronic medical record was generated, in whole or in part, using a voice recognition dictation system. Departure Departure Impression: Primary Impression: Diverticulitis of sigmoid colon Additional Impression: UTI (urinary tract infection) Qualified Codes: N30.00 - Acute cystitis without hematuria Disposition: HOME / SELF CARE / HOMELESS Condition: STABLE Referrals: ROBERTO STUART MD (PCP) follow up in one week Patient Instructions: Diverticulitis, Urinary Tract Infection Additional Instructions: You were evaluated in the emergency room and noted to have UTI and diverticulitis. We put you on antibiotics. Ensure you complete them. Take the prescribed pain medicine as needed. Please follow-up with your own doctor and the GI doctor in the next 7 days Scripts Hydrocodone Bit/Acetaminophen (HYDROCODONE-APAP 5-325 ) 1 Tab Tablet 1 TAB PO PRN Q6HRS PRN for PAIN, #14 TAB 0 Refills Prov: JEFF LAW APRN 08/12/21 Ondansetron (ONDANSETRON ODT) 4 Mg Tab.rapdis 1 TAB PO PRN Q6-8HRS, #16 TAB Prov: JEFF LAW APRN 08/12/21 Amoxicillin/Potassium Clav (AUGMENTIN 875-125 TABLET) 1 Each Tablet 1 TAB PO BID for 10 Days, #20 TAB 0 Refills Prov: JEFF LAW APRN 08/12/21 JEFF LAW APRN Aug 12, 2021 15:38
[2021-08-12] MEDS ORDERED: HYDR-2761 PO ×2 (15:51→15:52)
[2021-08-12] MEDS ORDERED: AMOX1TAB61 PO (15:51)
[2021-08-12] MEDS ORDERED: ONDA4TAB12 PO (15:51)
[2021-08-13] MEDS ORDERED: METF10007 PO (23:00)
[2021-08-15] MEDS ORDERED: DULO30CA2 PO (09:22)
[2021-08-16] MEDS ORDERED: AMLO-186 PO (09:27)
== END 2021-08-12 16:23 | disposition home or self-care (01) ==
LOC: ER 12:54
DX: N30.00 Acute cystitis without hematuria (principal); K57.32 Diverticulitis of large intestine without perforation or abscess without bleeding; E11.9 Type 2 diabetes mellitus without complications; I10 Essential (primary) hypertension; Z90.49 Acquired absence of other specified parts of digestive tract; Z90.710 Acquired absence of both cervix and uterus; Z88.1 Allergy status to other antibiotic agents; Z88.2 Allergy status to sulfonamides; Z88.5 Allergy status to narcotic agent; Z88.8 Allergy status to other drugs, medicaments and biological substances
CPT/HCPCS: 99285; J0696; J3010; J7030; Q9967; 36415; 74177; 80053; 81001; 83690; 85025; 87086; 96361; 96374; 96375; 96376

== ENCOUNTER 2021-08-13 17:12 | Inpatient (IN) | payer MEDICARE ==
[~2021-08-13] VITALS: Ht 162.6 cm; Wt 97.4 kg
[~2021-08-13 17:12] MED LIST changes: +AMOX1TAB61 PO; +ONDA4TAB12 PO
[2021-08-13] MEDS ORDERED: hydrALAZINE 20 MG/ML VIAL. IVP ONE (18:15)
[2021-08-13 18:29] LABS: BASO # 0.1 x10^3/uL (0.0-0.2); BASO % 1 % (0-3); EOS # 0.2 x10^3/uL (0.0-0.7); EOS % 2 % (0-3); HEMATOCRIT 38.5 % (36.0-47.0); HEMOGLOBIN 12.9 g/dL (12.0-15.5); LYMPH % 22 % (24-48); MEAN CORPUSCULAR HEMOGLOBIN 30 pg (25-35); MEAN CORPUSCULAR HGB CONC 34 g/dL (31-37); MEAN CORPUSCULAR VOLUME 90 fL (79-100); MONO # 0.4 x10^3/uL (0.0-1.1); MONO % 5 % (0-9); NEUT # 6.5 x10^3/uL (1.8-7.7); NEUT % 71 % (31-73); PLATELET COUNT 293 x10^3/uL (140-400); RED BLOOD COUNT 4.28 x10^6/uL (3.50-5.40); RED CELL DISTRIBUTION WIDTH 13.6 % (11.5-14.5); WHITE BLOOD COUNT 9.2 x10^3/uL (4.0-11.0)
[2021-08-13 18:40] LABS: CALCIUM 9.4 mg/dL (8.5-10.1); CREATININE 0.7 mg/dL (0.6-1.0); GFR 87.2; POTASSIUM 4.6 mmol/L (3.5-5.1)
[2021-08-13 18:45] LABS: ALBUMIN 3.4 g/dL (3.4-5.0); ALBUMIN/GLOBULIN RATIO 0.8 (1.0-1.7); MAGNESIUM 2.2 mg/dL (1.8-2.4); TOTAL BILIRUBIN 0.3 mg/dL (0.2-1.0); TOTAL PROTEIN 7.9 g/dL (6.4-8.2)
[2021-08-13] MEDS: fentaNYL PF VIAL 100 MCG/2 ML VIAL IV PRN ×2 (18:50→22:06)
--- NOTE | 2021-08-13 18:54 | EKG ---
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
--- NOTE | 2021-08-13 18:55 | PHYS DOC ---
Past Medical History Past Medical History: Diabetes-Type II, Diverticulitis, Hypertension, UTI Additional Past Medical Histor: CERVICAL CANCER, NEUROPATHY Past Surgical History: Cholecystectomy, Hysterectomy Additional Past Surgical Histo: CARDIAC CATH X3, TOE SX BOTH FEET Smoking Status: Never Smoker Alcohol Use: None Drug Use: Marijuana General Adult EDM: Chief Complaint: HYPERTENSION HPI: HPI: Patient is a 56 year old female with a history of diabetes type 2, hypertension, diverticulitis, who presents the ED today complaining of high blood pressure and a 7 out of 10 headache, symptoms began Thursday last week and states got worse today. Patient describes the headache as "my head is going to explode feeling". Patient denies any nausea, vomiting. Denies any chest pain or shortness of breath. Patient states she is on metoprolol and lisinopril for her blood pressure which she took this morning. She is was seen in the ED yesterday for abdominal pain and was diagnosed with diverticulitis and UTI. He was started on Augmentin and hydrocodone for pain. Review of Systems: Review of Systems: Constitutional: Denies fever or chills. [] Eyes: Denies change in visual acuity. [] HENT: Denies nasal congestion or sore throat. [] Respiratory: Denies cough or shortness of breath. [] Cardiovascular: Reports high blood pressure. Denies chest pain or edema. [] GI: Denies abdominal pain, nausea, vomiting, bloody stools or diarrhea. [] : Denies dysuria. [] Musculoskeletal: Denies back pain or joint pain. [] Integument: Denies rash. [] Neurologic: Reports headache, denies focal weakness or sensory changes. [] Psychiatric: Denies depression or anxiety. [] Heart Score: C/O Chest Pain: N/A Risk Factors: Risk Factors: DM, Current or recent (<one month) smoker, HTN, HLP, family history of CAD, obesity. Risk Scores: Score 0 - 3: 2.5% MACE over next 6 weeks - Discharge Home Score 4 - 6: 20.3% MACE over next 6 weeks - Admit for Clinical Observation Score 7 - 10: 72.7% MACE over next 6 weeks - Early Invasive Strategies Current Medications: Current Medications Medications (Trade) Dose Ordered Sig/Vincent Start Time Stop Time Status Last Admin Dose Admin Fentanyl Citrate (Fentanyl 2ml Vial) 50 mcg PRN Q15MIN PRN 08/13/21 18:15 08/14/21 18:14 Hydralazine HCl (Apresoline Inj) 10 mg 1X ONCE 08/13/21 18:15 08/13/21 18:16 DC Allergies: Allergies: Allergies Coded Allergies Type Severity Reaction Last Updated Verified Sulfa (Sulfonamide Antibiotics) Allergy Severe GENERALIZED RASH 11/03/16 Yes doxycycline Allergy Severe BLISTERS ON SKIN - INTERNALLY FELT LIKE SHE WAS ON FIRE 11/03/16 Yes hydrochlorothiazide Adverse Reaction Severe HEART PALPITATIONS 11/03/16 Yes morphine Adverse Reaction Severe SEVERE HEADACE 11/03/16 Yes Physical Exam: PE: Constitutional: Well developed, well nourished, no acute distress, non-toxic appearance. [] HENT: Normocephalic, atraumatic, bilateral external ears normal, oropharynx moist, no oral exudates, nose normal. [] Eyes: PERRLA, EOMI, conjunctiva normal, no discharge. [] Neck: Normal range of motion, no tenderness, supple, no stridor. [] Cardiovascular:Heart rate regular rhythm, no murmur [] Lungs & Thorax: Bilateral breath sounds clear to auscultation [] Abdomen: Bowel sounds normal, soft, no tenderness, no masses, no pulsatile masses. [] Skin: Warm, dry, no erythema, no rash. [] Back: No tenderness, no CVA tenderness. [] Extremities: No tenderness, no cyanosis, no clubbing, ROM intact, no edema. [] Neurologic: Alert and oriented X 3, normal motor function, normal sensory function, no focal deficits noted. [] Psychologic: Affect normal, judgement normal, mood normal. [] Current Patient Data: Labs: Laboratory Tests Test 08/13/21 18:15 White Blood Count 9.2 x10^3/uL (4.0-11.0) Red Blood Count 4.28 x10^6/uL (3.50-5.40) Hemoglobin 12.9 g/dL (12.0-15.5) Hematocrit 38.5 % (36.0-47.0) Mean Corpuscular Volume 90 fL (79-100) Mean Corpuscular Hemoglobin 30 pg (25-35) Mean Corpuscular Hemoglobin Concent 34 g/dL (31-37) Red Cell Distribution Width 13.6 % (11.5-14.5) Platelet Count 293 x10^3/uL (140-400) Neutrophils (%) (Auto) 71 % (31-73) Lymphocytes (%) (Auto) 22 % (24-48) L Monocytes (%) (Auto) 5 % (0-9) Eosinophils (%) (Auto) 2 % (0-3) Basophils (%) (Auto) 1 % (0-3) Neutrophils # (Auto) 6.5 x10^3/uL (1.8-7.7) Lymphocytes # (Auto) 2.0 x10^3/uL (1.0-4.8) Monocytes # (Auto) 0.4 x10^3/uL (0.0-1.1) Eosinophils # (Auto) 0.2 x10^3/uL (0.0-0.7) Basophils # (Auto) 0.1 x10^3/uL (0.0-0.2) Sodium Level 139 mmol/L (136-145) Potassium Level 4.6 mmol/L (3.5-5.1) Chloride Level 101 mmol/L (98-107) Carbon Dioxide Level 29 mmol/L (21-32) Anion Gap 9 (6-14) Blood Urea Nitrogen 13 mg/dL (7-20) Creatinine 0.7 mg/dL (0.6-1.0) Estimated GFR (Cockcroft-Gault) 87.2 BUN/Creatinine Ratio 19 (6-20) Glucose Level 118 mg/dL (70-99) H Calcium Level 9.4 mg/dL (8.5-10.1) Magnesium Level 2.2 mg/dL (1.8-2.4) Total Bilirubin 0.3 mg/dL (0.2-1.0) Aspartate Amino Transferase (AST) 41 U/L (15-37) H Alanine Aminotransferase (ALT) 61 U/L (14-59) H Alkaline Phosphatase 104 U/L (46-116) Troponin I High Sensitivity 6 ng/L (4-50) Total Protein 7.9 g/dL (6.4-8.2) Albumin 3.4 g/dL (3.4-5.0) Albumin/Globulin Ratio 0.8 (1.0-1.7) L Laboratory Tests 08/13/21 18:15 Laboratory Tests 08/13/21 18:15 Vital Signs: Vital Signs Date Time Temp Pulse Resp B/P (MAP) Pulse Ox O2 Delivery O2 Flow Rate FiO2 08/13/21 18:15 98.6 86 16 180/86 (117) 97 Room Air 98.6 EKG: EK interpreted by Dr. Rodarte sinus rhythm heart rate 81 no STEMI [] Radiology/Procedures: Radiology/Procedures: []PROCEDURE: CT HEAD WO CONTRAST CT HEAD INDICATION: Headache, hypertension COMPARISON: None Available. Exposure: One or more of the following individualized dose reduction techniques were utilized for this examination: 1. Automated exposure control 2. Adjustment of the mA and/or kV according to patient size 3. Use of iterative reconstruction technique TECHNIQUE: 5 mm contiguous axial images were obtained from the skull base to the vertex in both bone and soft tissue algorithm. FINDINGS: No abnormal attenuation within the brain parenchyma. No evidence of acute intracranial hemorrhage. No extra-axial fluid collections. No mass effect or midline shift. Ventricular size is appropriate. Basal cisterns are patent. No fractures identified.Leyva-white differentiation is preserved.Globes and orbits are within normal limits. Paranasal sinuses and mastoid air cells are clear. IMPRESSION: No acute intracranial findings. Electronically signed by: Geoffrey Marroquin MD (08/13/2021 7:05 PM) [id number] DICTATED and SIGNED BY: GEOFFREY MARROQUIN MD DATE: 08/13/21 [id number] 0 Course & Med Decision Making: Course & Med Decision Making Pertinent Labs and Imaging studies reviewed. (See chart for details) This is a 56-year-old female patient with history of hypertension presenting today complaining of a headache since last Thursday and high blood pressure today. Blood pressure on arrival to the ED is 180/86 with a heart rate of 86 patient was given hydralazine and pain medicine in the ED EKG is negative. CT of the head is negative, CBC CMP with no acute findings. Troponin is normal. I evaluated patient several times in the ED. blood pressure head is soft 155/74 at some point she kept on complaining of headache saying its not improving. I spoke to Dr. Stuart who accepted patient for admission Kelly Disclaimer: Kelly Disclaimer: This electronic medical record was generated, in whole or in part, using a voice recognition dictation system. Departure Departure Impression: Primary Impression: Accelerated hypertension Additional Impression: Intractable headache Qualified Codes: R51.9 - Headache, unspecified Disposition: 09 ADMITTED INPATIENT Condition: STABLE Referrals: ROBERTO STUART MD (PCP) JEFF LAW [employer]ICIAN Aug 13, 2021 18:55
--- NOTE | 2021-08-13 19:08 | RAD ---
CT HEAD INDICATION: Headache, hypertension COMPARISON: None Available. Exposure: One or more of the following individualized dose reduction techniques were utilized for thi s examination: 1. Automated exposure control 2. Adjustment of the mA and/or kV according to patient size 3. Use of iterative reconstruction technique TECHNIQUE: 5 mm contiguous axial images were obtained from the skull base to the vertex in both bone and soft tissue algorithm. FINDINGS: No abnormal attenuation within the brain parenchyma. No evidence of acute intracranial hemorrhage. No extra-axial fluid collections. No mass effect or midline shift. Ventricular size is appropriate. Basal cisterns are patent. No fractures identified.Leyva-white differentiation is preserved.Globes and orbits are within normal l imits. Paranasal sinuses and mastoid air cells are clear. IMPRESSION: No acute intracranial findings. Electronically signed by: Geoffrey Marroquin MD (08/13/2021 7:05 PM) [id number]
[2021-08-13 22:45] VITALS: BP 161/101
[2021-08-13] MEDS ORDERED: ACETAMINOPHEN 325 MG TABLET. PO PRN (23:00)
[2021-08-13] MEDS ORDERED: METF10007 PO (23:00)
[2021-08-13] MEDS ORDERED: ONDANSETRON PF 4 MG/2 ML VIAL. IVP PRN (23:00)
[2021-08-13] MEDS: hydrALAZINE 20 MG/ML VIAL. IVP PRN (23:12)
[2021-08-13] MEDS: fentaNYL PF VIAL 100 MCG/2 ML VIAL IVP PRN (23:12)
[2021-08-14] MEDS ORDERED: ATORVASTATIN CALCIUM 40 MG TABLET. PO SCH ×2 (00:15→21:00)
[2021-08-14] MEDS ORDERED: NORTRIPTYLINE 25 MG CAPSULE PO SCH ×2 (00:15→21:00)
[2021-08-14] MEDS: LATANOPROST 0.005% OPHTH SOLUTION 2.5ML BOTTLE. OU SCH ×2 (00:26→20:13)
[2021-08-14] MEDS: ATORVASTATIN CALCIUM 40 MG TABLET. PO SCH ×2 (00:26→20:14)
[2021-08-14] MEDS: fentaNYL PF VIAL 100 MCG/2 ML VIAL IVP PRN (00:27)
[2021-08-14] MEDS: INSULIN GLARGINE SYRINGE. SQ SCH ×2 (00:50→20:21)
[2021-08-14 03:00] VITALS: BP 126/87
[2021-08-14] MEDS: fentaNYL PF VIAL 100 MCG/2 ML VIAL IV PRN (03:16)
[2021-08-14] MEDS ORDERED: PROCHLORPERAZINE 10 MG/2 ML VIAL. IV ONE (03:30)
[2021-08-14] MEDS ORDERED: CALCIUM CARBONATE 500 MG TAB.CHEW PO PRN ×2 (03:30→09:00)
[2021-08-14 04:45] LABS: BASO # 0.1 x10^3/uL (0.0-0.2); BASO % 1 % (0-3); EOS # 0.2 x10^3/uL (0.0-0.7); EOS % 2 % (0-3); HEMATOCRIT 39.4 % (36.0-47.0); HEMOGLOBIN 13.1 g/dL (12.0-15.5); LYMPH % 22 % (24-48); MEAN CORPUSCULAR HEMOGLOBIN 30 pg (25-35); MEAN CORPUSCULAR HGB CONC 33 g/dL (31-37); MEAN CORPUSCULAR VOLUME 91 fL (79-100); MONO # 0.4 x10^3/uL (0.0-1.1); MONO % 4 % (0-9); NEUT # 6.5 x10^3/uL (1.8-7.7); NEUT % 71 % (31-73); PLATELET COUNT 287 x10^3/uL (140-400); RED BLOOD COUNT 4.36 x10^6/uL (3.50-5.40); RED CELL DISTRIBUTION WIDTH 14.3 % (11.5-14.5); WHITE BLOOD COUNT 9.2 x10^3/uL (4.0-11.0)
[2021-08-14] MEDS: LEVOTHYROXINE 50 MCG TABLET PO SCH (05:21)
[2021-08-14 05:38] LABS: ALBUMIN 3.4 g/dL (3.4-5.0); ALBUMIN/GLOBULIN RATIO 0.8 (1.0-1.7); CALCIUM 9.1 mg/dL (8.5-10.1); CREATININE 0.7 mg/dL (0.6-1.0); GFR 87.2; POTASSIUM 3.9 mmol/L (3.5-5.1); TOTAL BILIRUBIN 0.4 mg/dL (0.2-1.0); TOTAL PROTEIN 7.8 g/dL (6.4-8.2)
[2021-08-14 07:30] VITALS: BP 170/103
[2021-08-14] MEDS ORDERED: INSULIN ASPART 6 UNIT SQ PRN (08:45)
[2021-08-14] MEDS ORDERED: FLU VACC QUAD 21-22 (6MOS+) PF 0.5 ML SYRINGE. VAX IM ONE (09:00)
--- NOTE | 2021-08-14 09:24 | PDOC ---
Provider Note Date of Service: DATE: 08/14/21 TIME: 09:23 Provider Note Pt seen.H&P dictated.#[id number]. Justifications for Admission Other Justification ROBERTO STUART MD Aug 14, 2021 09:24
[2021-08-14] MEDS ORDERED: DEXTROSE 50% 25 GM / 50ML DISP.SYRIN. IV PRN (09:30)
[2021-08-14] MEDS: AMOXICILLIN/K CLAV 875/125MG TABLET. PO SCH ×2 (10:11→20:14)
[2021-08-14] MEDS: CHOLECALCIFEROL (VITAMIN D3) 1,000 UNIT TABLET PO SCH (10:11)
[2021-08-14] MEDS: metFORMIN 500 MG TABLET PO SCH ×2 (10:11→17:16)
[2021-08-14] MEDS: CLOPIDOGREL BISULFATE 75 MG TABLET PO SCH (10:11)
[2021-08-14] MEDS: CETIRIZINE HCL 10 MG TABLET. PO SCH (10:11)
[2021-08-14] MEDS: LINAGLIPTIN 5 MG TABLET PO SCH (10:11)
[2021-08-14] MEDS: MULTIVITAMIN with MINERAL TABLET. PO SCH (10:11)
[2021-08-14] MEDS: LISINOPRIL 20 MG TABLET PO SCH (10:12)
[2021-08-14] MEDS: METOPROLOL SUCC 24HR ER 100 MG TAB.ER.24H. PO SCH (10:12)
[2021-08-14] MEDS: ASPIRIN CHEWABLE 81 MG TABLET. PO SCH (10:12)
--- NOTE | 2021-08-14 10:24 | HP ---
DATE OF SERVICE: 08/14/2021 ADMIT DATE: 08/13/2021 REASON FOR ADMISSION TO THE HOSPITAL: 1. Severe headaches, migrainous headaches, uncontrolled. 2. Diverticulitis. HISTORY OF PRESENT ILLNESS: The patient is a 56-year-old female. The patient has history of chronic headaches. She also has chronic coronary artery disease, stable. She also came to the Emergency Room 2 days before for abdominal pain. At that time, she had a CT scan that shows diverticulitis, mild. The patient was discharged on Augmentin. Her CBC, chem profile was unremarkable. She came back again yesterday to the Emergency Room with complaints of severe headache, not able to take care of herself at home. The patient had a CT head, was negative, was given fentanyl and the patient was admitted to the hospital. PAST MEDICAL HISTORY: As mentioned, has a history of diabetes. She has hypertension, hyperlipidemia, coronary artery disease, migraine, diverticulosis. PAST SURGICAL HISTORY: Gallbladder surgery, hysterectomy, cardiac cath, stent placement. ALLERGIES: TO SULFA, DOXYCYCLINE, HYDROCHLOROTHIAZIDE, MORPHINE. MEDICATIONS: At home, she is on aspirin 81 mg, atorvastatin 40 mg, calcium, vitamin D, Plavix 75 mg, insulin 6 units three times daily, Tresiba 20 units at bedtime, eye drops for glaucoma, latanoprost 0.5 at bedtime, levothyroxine 25 mcg daily, lisinopril 40 mg daily, loratadine 10 mg daily, metoprolol 100 mg daily, multivitamin 1 daily, nortriptyline 25 mg at bedtime, fish oil daily, omeprazole 40 mg, Januvia 100 mg, CoQ enzyme 400 mg daily. PERSONAL HISTORY: Denies smoking, alcohol, drug abuse. FAMILY HISTORY: Positive for diabetes, heart disease. REVIEW OF SYSTEMS: Complains of severe headache, nauseated and cannot focus, cannot function and she also has some abdominal pain, frequent urination. Rest of the 14-system was reviewed and negative. PHYSICAL EXAMINATION: GENERAL: The patient is in severe distress secondary to headache. VITAL SIGNS: At the time of admission shows a temperature 98, pulse 86, respirations 16, blood pressure 180/86 and 97 on room air. HEENT: Head is atraumatic. Pupils are equal. Oral cavity: No congestion. The patient's face is flushed. NECK: Supple. Thyroid not enlarged. JVD not elevated. CHEST: Symmetrical. CARDIOVASCULAR: S1 and S2. LUNGS: Clear to auscultation. ABDOMEN: Soft. Left lower quadrant tenderness to deep palpation. Bowel sounds present. No mass palpable. EXTERNAL GENITALIA: No Paz. RECTUM: Deferred. EXTREMITIES: No calf tenderness, no edema. NEUROLOGIC: Cranial nerves intact. Power 5/5. Moving all extremities. No focal deficits noted. LABORATORY DATA: Shows a white count of 9, hemoglobin 13, platelets 293. Electrolytes show a sodium 139, potassium 4.6, chloride 101, bicarb 29, BUN 13, creatinine 0.7, glucose 118, magnesium 2.2. LFTs normal. BNP was negative. Troponin was negative. DIAGNOSTIC DATA: CT head: No acute intracranial findings. CT of the abdomen and pelvis done 2 days ago shows sigmoid diverticulitis. FINAL IMPRESSION: 1. Severe migraine headaches. 2. Colon diverticulitis, sigmoid colon. 3. Insulin-dependent diabetes. 4. Coronary artery disease, stable. History of previous stents. 5. Diabetes. 6. Hypertension. 7. Hyperlipidemia. PLAN: At this time, the patient is admitted to the hospital, was given fentanyl, Neurology consultation and the patient to continue on Augmentin for diverticulitis and see how she does. OLEGARIO DR: DANUTA/shannen TID: [id number]
[2021-08-14 10:48] VITALS: BP 154/88
--- NOTE | 2021-08-14 11:26 | PDOC2 ---
NEUROLOGY CONSULT Date of Service DOS: DATE: 08/14/21 TIME: 11:18 Reason for Consult Reason for Consult: Headache Referring Physician Referring Physician: Dr. Sharma Source Source: Chart review, Patient History of Present Illness History of Present Illness Patient is a 56-year-old right-handed female admitted last night with severe headache and found to have accelerated hypertension. She describes migraine headaches 2 or 3 times a week for which she takes [id number] pain medications. She has throbbing pain with photo phonophobia and occasional nausea. She has never been on a daily prevention migraine medication. I saw her 6 years ago for toxic headache due to increased blood pressure. MRI of the brain and sedimentation rate at that time were negative. Headache resolved with treatment of the blood pressure. There is a listed diagnosis of Parkinson's disease. Past Medical History Cardiovascular: CAD, HTN, Hyperlipidemia Pulmonary: Bronchitis CENTRAL NERVOUS SYSTEM: Migraine, Periperal neuropathy, Other (stabismus) GI: GERD, Irritable bowel disease Heme/Onc: Cancer (Cervical) Musculoskeletal: Osteoarthritis, Other (Fractures) Renal/: UTI Endocrine: Diabetes, Hypothyroidism Past Surgical History Past Surgical History: Appendectomy, Cholecystectomy, Hysterectomy, Other (Coronary stent, hemorrhoidectomy) Family History Family History: CAD, Other (Dementia) Social History Social History Single, unemployed, on disability, history of learning disability, completed 10th grade, ex-smoker and alcohol user Current Medications Current Medications Current Medications Fentanyl Citrate (Fentanyl 2ml Vial) 50 mcg PRN Q15MIN PRN IV PAIN GREATER THAN 3/10 Last administered on 08/14/21at 03:16; Start 08/13/21 at 18:15; Stop 08/14/21 at 18:14 Hydralazine HCl (Apresoline Inj) 10 mg 1X ONCE IVP Last administered on 08/13/21at 18:51; Start 08/13/21 at 18:15; Stop 08/13/21 at 18:16; Status DC Ondansetron HCl (Zofran) 4 mg PRN Q8HRS PRN IVP NAUSEA/VOMITING; Start 08/13/21 at 23:00; Stop 08/14/21 at 22:59 Fentanyl Citrate (Fentanyl 2ml Vial) 50 mcg PRN Q1HR PRN IVP PAIN Last administered on 08/14/21at 00:27; Start 08/13/21 at 23:00; Stop 08/14/21 at 22:59 Acetaminophen (Tylenol) 650 mg PRN Q4HRS PRN PO FEVER > 100.3'F Last administered on 08/13/21at 23:11; Start 08/13/21 at 23:00; Stop 08/14/21 at 22:59 Hydralazine HCl (Apresoline Inj) 10 mg PRN Q4HRS PRN IVP ELEVATED BP, SEE COMMENTS Last administered on 08/13/21at 23:12; Start 08/13/21 at 23:00 Atorvastatin Calcium (Lipitor) 40 mg QHS PO ; Start 08/14/21 at 00:15; Stop 08/14/21 at 00:02; Status DC Latanoprost (Xalatan) 1 drop HS OU Last administered on 08/14/21at 00:26; Start 08/14/21 at 00:00 Levothyroxine Sodium (Synthroid) 50 mcg DAILY06 PO Last administered on 08/14/21at 05:21; Start 08/14/21 at 06:00 Nortriptyline HCl (Pamelor) 25 mg QHS PO ; Start 08/14/21 at 21:00; Stop 08/14/21 at 00:15; Status DC Insulin Glargine (Lantus Syringe) 28 unit QHS SQ ; Start 08/14/21 at 21:00; Stop 08/14/21 at 00:15; Status DC Non-Formulary Medication (Ubidecarenone (Co Q-10)) 400 mg HS PO ; Start 08/14/21 at 21:00; Status UNV Atorvastatin Calcium (Lipitor) 40 mg QHS PO ; Start 08/14/21 at 21:00; Stop 08/14/21 at 00:15; Status DC Atorvastatin Calcium (Lipitor) 40 mg QHS PO Last administered on 08/14/21at 00:26; Start 08/14/21 at 00:15 Insulin Glargine (Lantus Syringe) 28 unit QHS SQ Last administered on 08/14/21at 00:50; Start 08/14/21 at 00:15 Nortriptyline HCl (Pamelor) 25 mg QHS PO Last administered on 08/14/21at 00:26; Start 08/14/21 at 00:15 Metformin HCl (Glucophage) 1,000 mg BIDWMEALS PO Last administered on 08/14/21at 10:11; Start 08/14/21 at 08:00 Influenza Virus Vaccine Quadrival (Flulaval Quad Syringe) 0.5 ml ONCE ONCE VAX IM ; Start 08/14/21 at 09:00; Stop 08/14/21 at 09:01; Status DC Calcium Carbonate/ Glycine (Tums) 500 mg PRN Q4HRS PRN PO INDIGESTION Last administered on 08/14/21at 03:23; Start 08/14/21 at 03:30 Prochlorperazine Edisylate (Compazine) 10 mg 1X ONCE IV Last administered on 08/14/21 03:23; Start 08/14/21 at 03:30; Stop 08/14/21 at 03:31; Status DC Amoxicillin/ Clavulanate Potassium (Augmentin 875/ 125mg) 1 tab BID PO Last administered on 08/14/21at 10:11; Start 08/14/21 at 09:00 Aspirin (Aspirin Chewable) 81 mg DAILY PO Last administered on 08/14/21at 10:12; Start 08/14/21 at 09:00 Clopidogrel Bisulfate (Plavix) 75 mg DAILY PO Last administered on 08/14/21at 10:11; Start 08/14/21 at 09:00 Lisinopril (Prinivil) 40 mg DAILY PO Last administered on 08/14/21at 10:12; Start 08/14/21 at 09:00 Metoprolol Succinate (Toprol Xl) 100 mg DAILY PO Last administered on 08/14/21at 10:12; Start 08/14/21 at 09:00 Calcium Carbonate/ Glycine (Tums) 250 mg PRN Q3HRS PRN PO INDIGESTION; Start 08/14/21 at 09:00 Vitamin D (Vitamin D3) 2,000 unit DAILY PO Last administered on 08/14/21at 10:11; Start 08/14/21 at 09:00 Non-Formulary Medication (Insulin Aspart (Novolog)) 6 units TIDBFRMEAL PRN SQ blood sugar; Start 08/14/21 at 08:45; Status UNV Lactobacillus Rhamnosus (Culturelle) 1 cap DAILY PO ; Start 08/15/21 at 09:00 Cetirizine HCl (ZyrTEC) 10 mg DAILY PO Last administered on 08/14/21at 10:11; Start 08/14/21 at 09:15 Multivitamins (Thera M Plus) 1 tab DAILY PO Last administered on 08/14/21at 10:11; Start 08/14/21 at 09:00 Pantoprazole Sodium (Protonix) 40 mg DAILYAC PO ; Start 08/14/21 at 11:30 Linagliptin (Tradjenta) 5 mg DAILY PO Last administered on 08/14/21at 10:11; Start 08/14/21 at 09:00 Insulin Human Lispro (HumaLOG) 0-5 UNITS TIDWMEALS SQ ; Start 08/14/21 at 12:00 Dextrose (Dextrose 50%-Water Syringe) 12.5 gm PRN Q15MIN PRN IV SEE COMMENTS; Start 08/14/21 at 09:30 Active Scripts Active Augmentin 875-125 Tablet (Amoxicillin/Potassium Clav) 1 Each Tablet 1 Tab PO BID 10 Days Reported Metformin Hcl 1,000 Mg Tablet 1,000 Mg PO BID Tresiba (Insulin Degludec) 100 Unit/1 Ml Vial 28 Unit SQ HS Novolog (Insulin Aspart) 100 Unit/1 Ml Cartridge 6 Units SQ TIDBFRMEAL PRN Nortriptyline Hcl 25 Mg Capsule 1 Cap PO QHS Atorvastatin Calcium 40 Mg Tablet 1 Tab PO QHS Tums (Calcium Carbonate) 300 Mg Tab.chew 300 Mg PO PRN Q3HRS PRN Latanoprost 2.5 Ml Drops 1 Drop OP HS Januvia (Sitagliptin Phosphate) 100 Mg Tablet 1 Tab PO DAILY One Daily For Women 50+ Adv Tb (Multivitamins-Min/Fa/Ginkgo) 1 Each Tablet 1 Each PO DAILY Loratadine 10 Mg Tablet 1 Tab PO DAILY Aspirin 81 Mg Tab.chew 81 Mg PO DAILY Levothyroxine Sodium 25 Mcg Tablet 50 Mcg PO DAILYAC Clopidogrel (Clopidogrel Bisulfate) 75 Mg Tablet 75 Mg PO DAILY Lisinopril 40 Mg Tablet 40 Mg PO DAILY Metoprolol Succinate ( Xl ) (Metoprolol Succinate) 100 Mg Tab.er.24h 100 Mg PO DAILY Fish Oil 1,000 Mg Capsule ([place]-3 Fatty Acids/Fish Oil) 1 Each Capsule 1 Each PO BID Co Q-10 (Ubidecarenone) 400 Mg Capsule 400 Mg PO HS Matos' Colon Health Capsule (L Gasseri/B Bifidum/B Longum) 1 Each Capsule 1 Each PO DAILY D3-2000 (Cholecalciferol (Vitamin D3)) 2,000 Unit Capsule 2,000 Unit PO DAILY Prilosec (Omeprazole) 40 Mg Capsule.dr 40 Mg PO DAILY Allergies Allergies: Coded Allergies: Sulfa (Sulfonamide Antibiotics) (Verified Allergy, Severe, GENERALIZED RASH, 11/03/16) doxycycline (Verified Allergy, Severe, BLISTERS ON SKIN - INTERNALLY FELT LIKE SHE WAS ON FIRE, 11/03/16) hydrochlorothiazide (Verified Adverse Reaction, Severe, HEART PALPITATIONS, 11/03/16) morphine (Verified Adverse Reaction, Severe, SEVERE HEADACHE, 08/14/21) ROS Review of System Negative for fever, chills, weight loss, shortness of breath, chest pain, indigestion, hematochezia, melena, and dysuria. Full 14-point review of systems is negative. Physical Exam Physical Examination General: Well-developed, well-nourished, white female, in no acute distress HEENT: Normocephalic andatraumatic. Temporal arteriespulsatile and nontender.Fundoscopic exam unremarkable Neck: Supple without bruit, no meningismus Musculoskeletal: Stability:see neurologic. Gait exam:see neurologic. Tone:see neurologic.Strength:see neurologic. Neurological: Mental Status:intact, orientation, memory, attention span/concentration, language, fund of knowledge normal. Cranial Nerves:Pupils equal and reactive to light, extraocular movements areintact, visual levine are full to confrontation. Facial sensation is normal. There is no facial asymmetry. Vestibulo-ocular reflex is intact. Palate elevates and tongue protrudes in midline. All other cranial related problems are negative except as mentioned before.Reflexes:1+ and symmetric with flexor plantar responses. Motor:5/5 strength with normal tone and bulk. Coordination:Finger-nose finger and hhwf-dl-bofn testing are normal. Rapid alternating movements and fine finger movements are intact. Gait:Not tested. Sensory:Stocking loss. Vitals VITALS Vital Signs Date Time Temp Pulse Resp B/P (MAP) Pulse Ox O2 Delivery O2 Flow Rate FiO2 08/14/21 10:48 97.7 109 18 154/88 (110) 97 Room Air 97.7 Labs Labs Laboratory Tests Test 08/13/21 18:15 08/14/21 00:15 08/14/21 03:00 08/14/21 03:05 White Blood Count 9.2 x10^3/uL (4.0-11.0) 9.2 x10^3/uL (4.0-11.0) Red Blood Count 4.28 x10^6/uL (3.50-5.40) 4.36 x10^6/uL (3.50-5.40) Hemoglobin 12.9 g/dL (12.0-15.5) 13.1 g/dL (12.0-15.5) Hematocrit 38.5 % (36.0-47.0) 39.4 % (36.0-47.0) Mean Corpuscular Volume 90 fL (79-100) 91 fL (79-100) Mean Corpuscular Hemoglobin 30 pg (25-35) 30 pg (25-35) Mean Corpuscular Hemoglobin Concent 34 g/dL (31-37) 33 g/dL (31-37) Red Cell Distribution Width 13.6 % (11.5-14.5) 14.3 % (11.5-14.5) Platelet Count 293 x10^3/uL (140-400) 287 x10^3/uL (140-400) Neutrophils (%) (Auto) 71 % (31-73) 71 % (31-73) Lymphocytes (%) (Auto) 22 % (24-48) 22 % (24-48) Monocytes (%) (Auto) 5 % (0-9) 4 % (0-9) Eosinophils (%) (Auto) 2 % (0-3) 2 % (0-3) Basophils (%) (Auto) 1 % (0-3) 1 % (0-3) Neutrophils # (Auto) 6.5 x10^3/uL (1.8-7.7) 6.5 x10^3/uL (1.8-7.7) Lymphocytes # (Auto) 2.0 x10^3/uL (1.0-4.8) 2.0 x10^3/uL (1.0-4.8) Monocytes # (Auto) 0.4 x10^3/uL (0.0-1.1) 0.4 x10^3/uL (0.0-1.1) Eosinophils # (Auto) 0.2 x10^3/uL (0.0-0.7) 0.2 x10^3/uL (0.0-0.7) Basophils # (Auto) 0.1 x10^3/uL (0.0-0.2) 0.1 x10^3/uL (0.0-0.2) Sodium Level 139 mmol/L (136-145) 139 mmol/L (136-145) Potassium Level 4.6 mmol/L (3.5-5.1) 3.9 mmol/L (3.5-5.1) Chloride Level 101 mmol/L (98-107) 100 mmol/L (98-107) Carbon Dioxide Level 29 mmol/L (21-32) 27 mmol/L (21-32) Anion Gap 9 (6-14) 12 (6-14) Blood Urea Nitrogen 13 mg/dL (7-20) 12 mg/dL (7-20) Creatinine 0.7 mg/dL (0.6-1.0) 0.7 mg/dL (0.6-1.0) Estimated GFR (Cockcroft-Gault) 87.2 87.2 BUN/Creatinine Ratio 19 (6-20) 17 (6-20) Glucose Level 118 mg/dL (70-99) 131 mg/dL (70-99) Calcium Level 9.4 mg/dL (8.5-10.1) 9.1 mg/dL (8.5-10.1) Magnesium Level 2.2 mg/dL (1.8-2.4) Total Bilirubin 0.3 mg/dL (0.2-1.0) 0.4 mg/dL (0.2-1.0) Aspartate Amino Transf (AST/SGOT) 41 U/L (15-37) 40 U/L (15-37) Alanine Aminotransferase (ALT/SGPT) 61 U/L (14-59) 29 U/L (14-59) Alkaline Phosphatase 104 U/L (46-116) 104 U/L (46-116) Troponin I High Sensitivity 6 ng/L (4-50) 5 ng/L (4-50) 4 ng/L (4-50) YC-Wzs-G-Type Natriuretic Peptide 48 pg/mL (0-124) Total Protein 7.9 g/dL (6.4-8.2) 7.8 g/dL (6.4-8.2) Albumin 3.4 g/dL (3.4-5.0) 3.4 g/dL (3.4-5.0) Albumin/Globulin Ratio 0.8 (1.0-1.7) 0.8 (1.0-1.7) Test 08/14/21 07:06 Glucose (Fingerstick) 178 mg/dL (70-99) Laboratory Tests Test 08/13/21 18:15 08/14/21 00:15 08/14/21 03:00 08/14/21 03:05 White Blood Count 9.2 x10^3/uL (4.0-11.0) 9.2 x10^3/uL (4.0-11.0) Red Blood Count 4.28 x10^6/uL (3.50-5.40) 4.36 x10^6/uL (3.50-5.40) Hemoglobin 12.9 g/dL (12.0-15.5) 13.1 g/dL (12.0-15.5) Hematocrit 38.5 % (36.0-47.0) 39.4 % (36.0-47.0) Mean Corpuscular Volume 90 fL (79-100) 91 fL (79-100) Mean Corpuscular Hemoglobin 30 pg (25-35) 30 pg (25-35) Mean Corpuscular Hemoglobin Concent 34 g/dL (31-37) 33 g/dL (31-37) Red Cell Distribution Width 13.6 % (11.5-14.5) 14.3 % (11.5-14.5) Platelet Count 293 x10^3/uL (140-400) 287 x10^3/uL (140-400) Neutrophils (%) (Auto) 71 % (31-73) 71 % (31-73) Lymphocytes (%) (Auto) 22 % (24-48) 22 % (24-48) Monocytes (%) (Auto) 5 % (0-9) 4 % (0-9) Eosinophils (%) (Auto) 2 % (0-3) 2 % (0-3) Basophils (%) (Auto) 1 % (0-3) 1 % (0-3) Neutrophils # (Auto) 6.5 x10^3/uL (1.8-7.7) 6.5 x10^3/uL (1.8-7.7) Lymphocytes # (Auto) 2.0 x10^3/uL (1.0-4.8) 2.0 x10^3/uL (1.0-4.8) Monocytes # (Auto) 0.4 x10^3/uL (0.0-1.1) 0.4 x10^3/uL (0.0-1.1) Eosinophils # (Auto) 0.2 x10^3/uL (0.0-0.7) 0.2 x10^3/uL (0.0-0.7) Basophils # (Auto) 0.1 x10^3/uL (0.0-0.2) 0.1 x10^3/uL (0.0-0.2) Sodium Level 139 mmol/L (136-145) 139 mmol/L (136-145) Potassium Level 4.6 mmol/L (3.5-5.1) 3.9 mmol/L (3.5-5.1) Chloride Level 101 mmol/L (98-107) 100 mmol/L (98-107) Carbon Dioxide Level 29 mmol/L (21-32) 27 mmol/L (21-32) Anion Gap 9 (6-14) 12 (6-14) Blood Urea Nitrogen 13 mg/dL (7-20) 12 mg/dL (7-20) Creatinine 0.7 mg/dL (0.6-1.0) 0.7 mg/dL (0.6-1.0) Estimated GFR (Cockcroft-Gault) 87.2 87.2 BUN/Creatinine Ratio 19 (6-20) 17 (6-20) Glucose Level 118 mg/dL (70-99) 131 mg/dL (70-99) Calcium Level 9.4 mg/dL (8.5-10.1) 9.1 mg/dL (8.5-10.1) Magnesium Level 2.2 mg/dL (1.8-2.4) Total Bilirubin 0.3 mg/dL (0.2-1.0) 0.4 mg/dL (0.2-1.0) Aspartate Amino Transf (AST/SGOT) 41 U/L (15-37) 40 U/L (15-37) Alanine Aminotransferase (ALT/SGPT) 61 U/L (14-59) 29 U/L (14-59) Alkaline Phosphatase 104 U/L (46-116) 104 U/L (46-116) Troponin I High Sensitivity 6 ng/L (4-50) 5 ng/L (4-50) 4 ng/L (4-50) YU-Bip-H-Type Natriuretic Peptide 48 pg/mL (0-124) Total Protein 7.9 g/dL (6.4-8.2) 7.8 g/dL (6.4-8.2) Albumin 3.4 g/dL (3.4-5.0) 3.4 g/dL (3.4-5.0) Albumin/Globulin Ratio 0.8 (1.0-1.7) 0.8 (1.0-1.7) Test 08/14/21 07:06 Glucose (Fingerstick) 178 mg/dL (70-99) Images Images CT HEAD INDICATION: Headache, hypertension COMPARISON: None Available. Exposure: One or more of the following individualized dose reduction techniques were utilized for this examination: 1. Automated exposure control 2. Adjustment of the mA and/or kV according to patient size 3. Use of iterative reconstruction technique TECHNIQUE: 5 mm contiguous axial images were obtained from the skull base to the vertex in both bone and soft tissue algorithm. FINDINGS: No abnormal attenuation within the brain parenchyma. No evidence of acute intracranial hemorrhage. No extra-axial fluid collections. No mass effect or midline shift. Ventricular size is appropriate. Basal cisterns are patent. No fractures identified.Leyva-white differentiation is preserved.Globes and orbits are within normal limits. Paranasal sinuses and mastoid air cells are clear. IMPRESSION: No acute intracranial findings. Assessment/Plan Assessment/Plan Impression: Toxic headache due to high blood pressure Intractable migraines, consider medication overuse headache Diabetic neuropathy Recommendations: One-time Toradol migraine cocktail Switch nortriptyline to duloxetine, side effects discussed She has coronary artery disease, not a candidate for triptan medications, but for acute treatment she could use calcitonin gene receptor antagonist such as Nurtec or Ubrelvy. Reyvow is another alternative. But we need to get a preventative established first because of medication overuse Thank you for letting me help with the patient's care. HAYDEN MCDONNELL MD Aug 14, 2021 11:26
[2021-08-14] MEDS ORDERED: diphenhydrAMINE 50 MG/ML VIAL IM ONE (11:30)
[2021-08-14] MEDS ORDERED: KETOROLAC 30 MG/ML VIAL. IM ONE (11:30)
--- NOTE | 2021-08-14 11:38 | NUR ---
SW following. Discussed with RN, pt from home, room air, ada diet, rapid COVID-19 negative. Neuro following. RN advised no SW needs, anticipate possible discharge home if okay with neuro. SW will continue to follow.
[2021-08-14] MEDS: PANTOPRAZOLE 40 MG TABLET.DR. PO SCH (12:39)
[2021-08-14] MEDS: DULoxetine HCL 30 MG CAPSULE.DR PO SCH (12:39)
[2021-08-14] MEDS: INSULIN LISPRO 300 UNITS/3 ML VIAL. SQ SCH ×2 (12:43→17:00)
[2021-08-14 14:41] VITALS: BP 163/96
[2021-08-14 19:00] VITALS: BP 150/94
[2021-08-14] MEDS ORDERED: INSULIN GLARGINE SYRINGE. SQ SCH (21:00)
[2021-08-14] MEDS ORDERED: UBIDECARENONE 400 MG PO SCH (21:00)
[2021-08-14 22:49] VITALS: BP 153/91
[2021-08-15] VITALS (7 sets, daily range): BP systolic 118–171; BP diastolic 58–114
[2021-08-15] MEDS: hydrALAZINE 20 MG/ML VIAL. IVP PRN ×2 (02:39→13:52)
[2021-08-15] MEDS ORDERED: KETOROLAC 30 MG/ML VIAL. IM ONE (04:30)
[2021-08-15] MEDS: PANTOPRAZOLE 40 MG TABLET.DR. PO SCH ×2 (05:56→08:53)
[2021-08-15] MEDS: LEVOTHYROXINE 50 MCG TABLET PO SCH (05:56)
[2021-08-15] MEDS: INSULIN LISPRO 300 UNITS/3 ML VIAL. SQ SCH ×3 (08:00→17:00)
[2021-08-15] MEDS: metFORMIN 500 MG TABLET PO SCH ×2 (08:50→17:29)
[2021-08-15] MEDS: CHOLECALCIFEROL (VITAMIN D3) 1,000 UNIT TABLET PO SCH (08:51)
[2021-08-15] MEDS: MULTIVITAMIN with MINERAL TABLET. PO SCH (08:51)
[2021-08-15] MEDS: LACTOBACILLUS RHAMNOSUS GG 1 CAPSULE. PO SCH (08:52)
[2021-08-15] MEDS: LINAGLIPTIN 5 MG TABLET PO SCH (08:52)
[2021-08-15] MEDS: METOPROLOL SUCC 24HR ER 100 MG TAB.ER.24H. PO SCH (08:52)
[2021-08-15] MEDS: LISINOPRIL 20 MG TABLET PO SCH (08:53)
[2021-08-15] MEDS: ASPIRIN CHEWABLE 81 MG TABLET. PO SCH (08:53)
[2021-08-15] MEDS: CETIRIZINE HCL 10 MG TABLET. PO SCH (08:53)
[2021-08-15] MEDS: DULoxetine HCL 30 MG CAPSULE.DR PO SCH (08:53)
[2021-08-15] MEDS: CLOPIDOGREL BISULFATE 75 MG TABLET PO SCH (08:54)
[2021-08-15] MEDS: AMOXICILLIN/K CLAV 875/125MG TABLET. PO SCH ×2 (08:54→20:18)
--- NOTE | 2021-08-15 09:19 | PDOC ---
PROGRESS NOTES Date of Service: DATE: 08/15/21 TIME: 09:16 Subjective Subjective severe headache this morning Objective Objective Vital Signs Date Time Temp Pulse Resp B/P (MAP) Pulse Ox O2 Delivery O2 Flow Rate FiO2 08/15/21 08:53 98 148/58 08/15/21 07:00 97.4 18 97 Room Air 97.4 Intake and Output 08/15/21 07:00 Intake Total 840 ml Output Total 350 ml Balance 490 ml Intake Oral 840 ml Output Urine Total 350 ml # Voids 5 # Bowel Movements 1 Physical Exam Abdomen: Soft Heart: Regular rate, Normal S1, Normal S2 Extremities: No clubbing General: Alert, Oriented X3 HEENT: Atraumatic Lungs: Clear to auscultation MUSCULOSKELETAL: No deformity, Osteoarthritic changes both hands Neck: Supple Neuro: Normal speech Psych/Mental Status: Mental status NL Skin: No breakdown Diagnosis Problem List Problems Medical Problems: (1) Intractable headache Status: Acute Assessment Assessment Problems Medical Problems: (1) Intractable headache Status: Acute FINAL IMPRESSION: 1. Severe migraine headaches. 2. Colon diverticulitis, sigmoid colon. 3. Insulin-dependent diabetes. 4. Coronary artery disease, stable. History of previous stents. 5. Diabetes. 6. Hypertension. 7. Hyperlipidemia. PLAN: toradol helping headache agree with cymbalta. can try new biologic meds out pt. d/c home today labs good. At this time, the patient is admitted to the hospital, was given fentanyl, Neurology consultation and the patient to continue on Augmentin for diverticulitis and see how she does. Plan Plan of Care Problems Medical Problems: (1) Intractable headache Status: Acute Comment Review of Relevant I have reviewed the following items driss (where applicable) has been applied. Labs Laboratory Tests Test 08/14/21 10:20 08/14/21 11:51 08/14/21 16:50 08/14/21 19:16 SARS-CoV-2 RNA (SANDY) Negative (Negative) SARS-CoV-2 Antigen (Rapid) Negative (NEGATIVE) Glucose (Fingerstick) 170 mg/dL (70-99) 115 mg/dL (70-99) 161 mg/dL (70-99) Test 08/15/21 07:55 Glucose (Fingerstick) 153 mg/dL (70-99) Medications Current Medications Acetaminophen (Tylenol) 650 mg PRN Q6HRS PRN PO MILD PAIN / TEMP > 100.3'F; Start 08/15/21 at 09:00 Atorvastatin Calcium (Lipitor) 40 mg QHS PO ; Start 08/14/21 at 21:00; Stop 08/14/21 at 00:15; Status DC Dextrose (Dextrose 50%-Water Syringe) 12.5 gm PRN Q15MIN PRN IV SEE COMMENTS; Start 08/14/21 at 09:30 Diphenhydramine HCl (Benadryl) 25 mg 1X ONCE IM Last administered on 08/14/21at 12:38; Start 08/14/21 at 11:30; Stop 08/14/21 at 11:40; Status DC Duloxetine HCl (Cymbalta) 30 mg DAILY PO Last administered on 08/15/21at 08:53; Start 08/14/21 at 11:30 Insulin Glargine (Lantus Syringe) 28 unit QHS SQ ; Start 08/14/21 at 21:00; Stop 08/14/21 at 00:15; Status DC Insulin Human Lispro (HumaLOG) 0-5 UNITS TIDWMEALS SQ Last administered on 08/14/21at 12:43; Start 08/14/21 at 12:00 Ketorolac Tromethamine (Toradol 30mg Vial) 30 mg 1X ONCE IM Last administered on 08/14/21at 12:38; Start 08/14/21 at 11:30; Stop 08/14/21 at 11:40; Status DC Ketorolac Tromethamine (Toradol 30mg Vial) 30 mg 1X ONCE IM Last administered on 08/15/21at 04:32; Start 08/15/21 at 04:30; Stop 08/15/21 at 04:31; Status DC Lactobacillus Rhamnosus (Culturelle) 1 cap DAILY PO Last administered on 08/15/21at 08:52; Start 08/15/21 at 09:00 Non-Formulary Medication (Ubidecarenone (Co Q-10)) 400 mg HS PO ; Start 08/14/21 at 21:00; Status UNV Nortriptyline HCl (Pamelor) 25 mg QHS PO ; Start 08/14/21 at 21:00; Stop 08/14/21 at 00:15; Status DC Pantoprazole Sodium (Protonix) 40 mg DAILYAC PO Last administered on 08/15/21at 08:53; Start 08/14/21 at 11:30 Vitals/I & O Vital Sign - Last 24 Hours 08/14/21 08/14/21 08/14/21 08/14/21 10:12 10:12 10:48 14:41 Temp 97.7 97.8 97.7 97.8 Pulse 108 108 109 93 Resp 18 20 B/P (MAP) 170/103 170/103 154/88 (110) 163/96 (118) Pulse Ox 97 98 O2 Delivery Room Air Room Air 08/14/21 08/14/21 08/14/21 08/15/21 19:00 20:00 22:49 02:34 Temp 97.8 97.7 97.8 97.8 97.7 97.8 Pulse 92 92 93 Resp 18 18 18 B/P (MAP) 150/94 (112) 153/91 (111) 171/114 (133) Pulse Ox 95 94 97 O2 Delivery Room Air Room Air Nasal Cannula Room Air 08/15/21 08/15/21 08/15/21 08/15/21 02:39 03:27 07:00 08:52 Temp 97.4 97.4 Pulse 85 94 98 98 Resp 18 B/P (MAP) 177/105 152/88 (109) 148/58 (88) 148/58 Pulse Ox 97 O2 Delivery Room Air 08/15/21 08:53 Pulse 98 B/P (MAP) 148/58 Intake and Output 08/14/21 08/14/21 08/15/21 15:00 23:00 07:00 Intake Total 600 ml 240 ml Output Total 350 ml Balance 600 ml 240 ml -350 ml Justifications for Admission Other Justification ROBERTO STUART MD Aug 15, 2021 09:19
[2021-08-15] MEDS ORDERED: DULO30CA2 PO (09:22)
--- NOTE | 2021-08-15 10:45 | NUR ---
SW following. Discussed with RN, discharge order for home with self care. RN advised no SW needs.
--- NOTE | 2021-08-15 13:23 | PDOC ---
PROGRESS NOTES Date of Service DATE: 08/15/21 TIME: 13:21 Assessment Problems Medical Problems: (1) Intractable headache Status: Acute Toxic headache due to high blood pressure, much better after Toradol and Benadryl Intractable migraines, consider medication overuse headache Diabetic neuropathy Plan Switched nortriptyline to duloxetine, side effects discussed She has coronary artery disease, not a candidate for triptan medications, but for acute treatment she could use calcitonin gene receptor antagonist such as Nurtec or Ubrelvy. Reyvow is another alternative. But we need to get a preventative established first because of medication overuse Okay for discharge Follow-up with me or my nurse practitioner in 4-6 weeks Subjective No headache now Objective Vital Signs Date Time Temp Pulse Resp B/P (MAP) Pulse Ox O2 Delivery O2 Flow Rate FiO2 08/15/21 11:00 97.6 89 18 170/106 (127) 97 Room Air 97.6 Intake and Output 08/15/21 07:00 Intake Total 840 ml Output Total 350 ml Balance 490 ml Intake Oral 840 ml Output Urine Total 350 ml # Voids 5 # Bowel Movements 1 PHYSICAL EXAM Physical Exam: Alert. Oriented to time, place and person. PERRL. EOMI. left eye exotropia CN: no focal findings. Muscle tone: normal. Muscle strength: 5/5 DTR: 1+ Plantar reflex: Flexor Gait: not examined in bed. Sensory exam: Stocking loss No cerebellar signs elicited. Review of Relevant I have reviewed the following items driss (where applicable) has been applied. Labs Laboratory Tests Test 08/13/21 18:15 08/14/21 00:15 08/14/21 03:00 08/14/21 03:05 White Blood Count 9.2 x10^3/uL (4.0-11.0) 9.2 x10^3/uL (4.0-11.0) Red Blood Count 4.28 x10^6/uL (3.50-5.40) 4.36 x10^6/uL (3.50-5.40) Hemoglobin 12.9 g/dL (12.0-15.5) 13.1 g/dL (12.0-15.5) Hematocrit 38.5 % (36.0-47.0) 39.4 % (36.0-47.0) Mean Corpuscular Volume 90 fL (79-100) 91 fL (79-100) Mean Corpuscular Hemoglobin 30 pg (25-35) 30 pg (25-35) Mean Corpuscular Hemoglobin Concent 34 g/dL (31-37) 33 g/dL (31-37) Red Cell Distribution Width 13.6 % (11.5-14.5) 14.3 % (11.5-14.5) Platelet Count 293 x10^3/uL (140-400) 287 x10^3/uL (140-400) Neutrophils (%) (Auto) 71 % (31-73) 71 % (31-73) Lymphocytes (%) (Auto) 22 % (24-48) 22 % (24-48) Monocytes (%) (Auto) 5 % (0-9) 4 % (0-9) Eosinophils (%) (Auto) 2 % (0-3) 2 % (0-3) Basophils (%) (Auto) 1 % (0-3) 1 % (0-3) Neutrophils # (Auto) 6.5 x10^3/uL (1.8-7.7) 6.5 x10^3/uL (1.8-7.7) Lymphocytes # (Auto) 2.0 x10^3/uL (1.0-4.8) 2.0 x10^3/uL (1.0-4.8) Monocytes # (Auto) 0.4 x10^3/uL (0.0-1.1) 0.4 x10^3/uL (0.0-1.1) Eosinophils # (Auto) 0.2 x10^3/uL (0.0-0.7) 0.2 x10^3/uL (0.0-0.7) Basophils # (Auto) 0.1 x10^3/uL (0.0-0.2) 0.1 x10^3/uL (0.0-0.2) Sodium Level 139 mmol/L (136-145) 139 mmol/L (136-145) Potassium Level 4.6 mmol/L (3.5-5.1) 3.9 mmol/L (3.5-5.1) Chloride Level 101 mmol/L (98-107) 100 mmol/L (98-107) Carbon Dioxide Level 29 mmol/L (21-32) 27 mmol/L (21-32) Anion Gap 9 (6-14) 12 (6-14) Blood Urea Nitrogen 13 mg/dL (7-20) 12 mg/dL (7-20) Creatinine 0.7 mg/dL (0.6-1.0) 0.7 mg/dL (0.6-1.0) Estimated GFR (Cockcroft-Gault) 87.2 87.2 BUN/Creatinine Ratio 19 (6-20) 17 (6-20) Glucose Level 118 mg/dL (70-99) 131 mg/dL (70-99) Calcium Level 9.4 mg/dL (8.5-10.1) 9.1 mg/dL (8.5-10.1) Magnesium Level 2.2 mg/dL (1.8-2.4) Total Bilirubin 0.3 mg/dL (0.2-1.0) 0.4 mg/dL (0.2-1.0) Aspartate Amino Transf (AST/SGOT) 41 U/L (15-37) 40 U/L (15-37) Alanine Aminotransferase (ALT/SGPT) 61 U/L (14-59) 29 U/L (14-59) Alkaline Phosphatase 104 U/L (46-116) 104 U/L (46-116) Troponin I High Sensitivity 6 ng/L (4-50) 5 ng/L (4-50) 4 ng/L (4-50) YU-Eyp-O-Type Natriuretic Peptide 48 pg/mL (0-124) Total Protein 7.9 g/dL (6.4-8.2) 7.8 g/dL (6.4-8.2) Albumin 3.4 g/dL (3.4-5.0) 3.4 g/dL (3.4-5.0) Albumin/Globulin Ratio 0.8 (1.0-1.7) 0.8 (1.0-1.7) Test 08/14/21 07:06 08/14/21 10:20 08/14/21 11:51 08/14/21 16:50 Glucose (Fingerstick) 178 mg/dL (70-99) 170 mg/dL (70-99) 115 mg/dL (70-99) SARS-CoV-2 RNA (SANDY) Negative (Negative) SARS-CoV-2 Antigen (Rapid) Negative (NEGATIVE) Test 08/14/21 19:16 08/15/21 07:55 08/15/21 11:34 Glucose (Fingerstick) 161 mg/dL (70-99) 153 mg/dL (70-99) 144 mg/dL (70-99) Laboratory Tests Test 08/14/21 16:50 08/14/21 19:16 08/15/21 07:55 08/15/21 11:34 Glucose (Fingerstick) 115 mg/dL (70-99) 161 mg/dL (70-99) 153 mg/dL (70-99) 144 mg/dL (70-99) Medications Current Medications Fentanyl Citrate (Fentanyl 2ml Vial) 50 mcg PRN Q15MIN PRN IV PAIN GREATER THAN 3/10 Last administered on 08/14/21at 03:16; Start 08/13/21 at 18:15; Stop 08/14/21 at 18:14; Status DC Hydralazine HCl (Apresoline Inj) 10 mg 1X ONCE IVP Last administered on 08/13/21at 18:51; Start 08/13/21 at 18:15; Stop 08/13/21 at 18:16; Status DC Ondansetron HCl (Zofran) 4 mg PRN Q8HRS PRN IVP NAUSEA/VOMITING; Start 08/13/21 at 23:00; Stop 08/14/21 at 22:59; Status DC Fentanyl Citrate (Fentanyl 2ml Vial) 50 mcg PRN Q1HR PRN IVP PAIN Last administered on 08/14/21at 00:27; Start 08/13/21 at 23:00; Stop 08/14/21 at 22:59; Status DC Acetaminophen (Tylenol) 650 mg PRN Q4HRS PRN PO FEVER > 100.3'F Last administered on 08/13/21at 23:11; Start 08/13/21 at 23:00; Stop 08/14/21 at 22:59; Status DC Hydralazine HCl (Apresoline Inj) 10 mg PRN Q4HRS PRN IVP ELEVATED BP, SEE COMMENTS Last administered on 08/15/21at 02:39; Start 08/13/21 at 23:00 Atorvastatin Calcium (Lipitor) 40 mg QHS PO ; Start 08/14/21 at 00:15; Stop 08/14/21 at 00:02; Status DC Latanoprost (Xalatan) 1 drop HS OU Last administered on 08/14/21at 20:13; Start 08/14/21 at 00:00 Levothyroxine Sodium (Synthroid) 50 mcg DAILY06 PO Last administered on 08/15/21at 05:56; Start 08/14/21 at 06:00 Nortriptyline HCl (Pamelor) 25 mg QHS PO ; Start 08/14/21 at 21:00; Stop 08/14/21 at 00:15; Status DC Insulin Glargine (Lantus Syringe) 28 unit QHS SQ ; Start 08/14/21 at 21:00; Stop 08/14/21 at 00:15; Status DC Non-Formulary Medication (Ubidecarenone (Co Q-10)) 400 mg HS PO ; Start 08/14/21 at 21:00; Status UNV Atorvastatin Calcium (Lipitor) 40 mg QHS PO ; Start 08/14/21 at 21:00; Stop 08/14/21 at 00:15; Status DC Atorvastatin Calcium (Lipitor) 40 mg QHS PO Last administered on 08/14/21at 20:14; Start 08/14/21 at 00:15 Insulin Glargine (Lantus Syringe) 28 unit QHS SQ Last administered on 08/14/21at 20:21; Start 08/14/21 at 00:15 Nortriptyline HCl (Pamelor) 25 mg QHS PO Last administered on 08/14/21at 00:26; Start 08/14/21 at 00:15; Stop 08/14/21 at 11:29; Status DC Metformin HCl (Glucophage) 1,000 mg BIDWMEALS PO Last administered on 08/15/21at 08:50; Start 08/14/21 at 08:00 Influenza Virus Vaccine Quadrival (Flulaval Quad [id number] Syringe) 0.5 ml ONCE ONCE VAX IM ; Start 08/14/21 at 09:00; Stop 08/14/21 at 09:01; Status DC Calcium Carbonate/ Glycine (Tums) 500 mg PRN Q4HRS PRN PO INDIGESTION Last administered on 08/14/21 03:23; Start 08/14/21 at 03:30 Prochlorperazine Edisylate (Compazine) 10 mg 1X ONCE IV Last administered on 08/14/21 03:23; Start 08/14/21 at 03:30; Stop 08/14/21 at 03:31; Status DC Amoxicillin/ Clavulanate Potassium (Augmentin 875/ 125mg) 1 tab BID PO Last administered on 08/15/21 08:54; Start 08/14/21 at 09:00 Aspirin (Aspirin Chewable) 81 mg DAILY PO Last administered on 08/15/21 08:53; Start 08/14/21 at 09:00 Clopidogrel Bisulfate (Plavix) 75 mg DAILY PO Last administered on 08/15/21 08:54; Start 08/14/21 at 09:00 Lisinopril (Prinivil) 40 mg DAILY PO Last administered on 08/15/21 08:53; Start 08/14/21 at 09:00 Metoprolol Succinate (Toprol Xl) 100 mg DAILY PO Last administered on 08/15/21 08:52; Start 08/14/21 at 09:00 Calcium Carbonate/ Glycine (Tums) 250 mg PRN Q3HRS PRN PO INDIGESTION; Start 08/14/21 at 09:00; Status Cancel Vitamin D (Vitamin D3) 2,000 unit DAILY PO Last administered on 08/15/21 08:51; Start 08/14/21 at 09:00 Non-Formulary Medication (Insulin Aspart (Novolog)) 6 units TIDBFRMEAL PRN SQ blood sugar; Start 08/14/21 at 08:45; Status UNV Lactobacillus Rhamnosus (Culturelle) 1 cap DAILY PO Last administered on 08/15/21 08:52; Start 08/15/21 at 09:00 Cetirizine HCl (ZyrTEC) 10 mg DAILY PO Last administered on 08/15/21 08:53; Start 08/14/21 at 09:15 Multivitamins (Thera M Plus) 1 tab DAILY PO Last administered on 08/15/21 08:51; Start 08/14/21 at 09:00 Pantoprazole Sodium (Protonix) 40 mg DAILYAC PO Last administered on 11/4/21at 08:53; Start 08/14/21 at 11:30 Linagliptin (Tradjenta) 5 mg DAILY PO Last administered on 08/15/21at 08:52; Start 08/14/21 at 09:00 Insulin Human Lispro (HumaLOG) 0-5 UNITS TIDWMEALS SQ Last administered on 08/14/21at 12:43; Start 08/14/21 at 12:00 Dextrose (Dextrose 50%-Water Syringe) 12.5 gm PRN Q15MIN PRN IV SEE COMMENTS; Start 08/14/21 at 09:30 Duloxetine HCl (Cymbalta) 30 mg DAILY PO Last administered on 08/15/21at 08:53; Start 08/14/21 at 11:30 Ketorolac Tromethamine (Toradol 30mg Vial) 30 mg 1X ONCE IM Last administered on 08/14/21at 12:38; Start 08/14/21 at 11:30; Stop 08/14/21 at 11:40; Status DC Diphenhydramine HCl (Benadryl) 25 mg 1X ONCE IM Last administered on 08/14/21at 12:38; Start 08/14/21 at 11:30; Stop 08/14/21 at 11:40; Status DC Ketorolac Tromethamine (Toradol 30mg Vial) 30 mg 1X ONCE IM Last administered on 08/15/21at 04:32; Start 08/15/21 at 04:30; Stop 08/15/21 at 04:31; Status DC Acetaminophen (Tylenol) 650 mg PRN Q6HRS PRN PO MILD PAIN / TEMP > 100.3'F; Start 08/15/21 at 09:00 Active Scripts Active Cymbalta (Duloxetine Hcl) 30 Mg Capsule.dr 30 Mg PO DAILY 30 Days Augmentin 875-125 Tablet (Amoxicillin/Potassium Clav) 1 Each Tablet 1 Tab PO BID 10 Days Reported Metformin Hcl 1,000 Mg Tablet 1,000 Mg PO BID Tresiba (Insulin Degludec) 100 Unit/1 Ml Vial 28 Unit SQ HS Novolog (Insulin Aspart) 100 Unit/1 Ml Cartridge 6 Units SQ TIDBFRMEAL PRN Atorvastatin Calcium 40 Mg Tablet 1 Tab PO QHS Tums (Calcium Carbonate) 300 Mg Tab.chew 300 Mg PO PRN Q3HRS PRN Latanoprost 2.5 Ml Drops 1 Drop OP HS Januvia (Sitagliptin Phosphate) 100 Mg Tablet 1 Tab PO DAILY One Daily For Women 50+ Adv Tb (Multivitamins-Min/Fa/Ginkgo) 1 Each Tablet 1 Each PO DAILY Loratadine 10 Mg Tablet 1 Tab PO DAILY Aspirin 81 Mg Tab.chew 81 Mg PO DAILY Levothyroxine Sodium 25 Mcg Tablet 50 Mcg PO DAILYAC Clopidogrel (Clopidogrel Bisulfate) 75 Mg Tablet 75 Mg PO DAILY Lisinopril 40 Mg Tablet 40 Mg PO DAILY Metoprolol Succinate ( Xl ) (Metoprolol Succinate) 100 Mg Tab.er.24h 100 Mg PO DAILY Fish Oil 1,000 Mg Capsule ([place]-3 Fatty Acids/Fish Oil) 1 Each Capsule 1 Each PO BID Co Q-10 (Ubidecarenone) 400 Mg Capsule 400 Mg PO HS [employer] Capsule (L Gasseri/B Bifidum/B Longum) 1 Each Capsule 1 Each PO DAILY D3-2000 (Cholecalciferol (Vitamin D3)) 2,000 Unit Capsule 2,000 Unit PO DAILY Prilosec (Omeprazole) 40 Mg Capsule.dr 40 Mg PO DAILY Vitals/I & O Vital Sign - Last 24 Hours 08/14/21 08/14/21 08/14/21 08/14/21 14:41 19:00 20:00 22:49 Temp 97.8 97.8 97.7 97.8 97.8 97.7 Pulse 93 92 92 Resp 20 18 18 B/P (MAP) 163/96 (118) 150/94 (112) 153/91 (111) Pulse Ox 98 95 94 O2 Delivery Room Air Room Air Room Air Nasal Cannula 08/15/21 08/15/21 08/15/21 08/15/21 02:34 02:39 03:27 07:00 Temp 97.8 97.4 97.8 97.4 Pulse 93 85 94 98 Resp 18 18 B/P (MAP) 171/114 (133) 177/105 152/88 (109) 148/58 (88) Pulse Ox 97 97 O2 Delivery Room Air Room Air 08/15/21 08/15/21 08/15/21 08/15/21 08:00 08:52 08:53 11:00 Temp 97.6 97.6 Pulse 98 98 89 Resp 18 B/P (MAP) 148/58 148/58 170/106 (127) Pulse Ox 97 O2 Delivery Room Air Room Air Intake and Output 08/14/21 08/14/21 08/15/21 15:00 23:00 07:00 Intake Total 600 ml 240 ml Output Total 350 ml Balance 600 ml 240 ml -350 ml Justicifation of Admission Dx: Justifications for Admission: Justification of Admission Dx: N/A HAYDEN MCDONNELL MD Aug 15, 2021 13:23
[2021-08-15] MEDS: ACETAMINOPHEN 325 MG TABLET. PO PRN ×2 (13:50→20:20)
[2021-08-15] MEDS: ATORVASTATIN CALCIUM 40 MG TABLET. PO SCH (20:18)
[2021-08-15] MEDS: INSULIN GLARGINE SYRINGE. SQ SCH (20:27)
[2021-08-15] MEDS: LATANOPROST 0.005% OPHTH SOLUTION 2.5ML BOTTLE. OU SCH (20:39)
[2021-08-16 03:00] VITALS: BP 132/75
[2021-08-16 04:19] VITALS: BP 132/75
[2021-08-16] MEDS: LEVOTHYROXINE 50 MCG TABLET PO SCH (05:55)
[2021-08-16 07:00] VITALS: BP 180/104
[2021-08-16] MEDS: AMOXICILLIN/K CLAV 875/125MG TABLET. PO SCH (07:55)
[2021-08-16] MEDS: DULoxetine HCL 30 MG CAPSULE.DR PO SCH (07:56)
[2021-08-16] MEDS: LACTOBACILLUS RHAMNOSUS GG 1 CAPSULE. PO SCH (07:56)
[2021-08-16] MEDS: LISINOPRIL 20 MG TABLET PO SCH (07:56)
[2021-08-16] MEDS: metFORMIN 500 MG TABLET PO SCH (07:56)
[2021-08-16] MEDS: CETIRIZINE HCL 10 MG TABLET. PO SCH (07:57)
[2021-08-16] MEDS: CLOPIDOGREL BISULFATE 75 MG TABLET PO SCH (07:57)
[2021-08-16] MEDS: LINAGLIPTIN 5 MG TABLET PO SCH (07:57)
[2021-08-16] MEDS: METOPROLOL SUCC 24HR ER 100 MG TAB.ER.24H. PO SCH (07:57)
[2021-08-16] MEDS: CHOLECALCIFEROL (VITAMIN D3) 1,000 UNIT TABLET PO SCH (07:58)
[2021-08-16] MEDS: ASPIRIN CHEWABLE 81 MG TABLET. PO SCH (07:58)
[2021-08-16] MEDS: MULTIVITAMIN with MINERAL TABLET. PO SCH (07:58)
[2021-08-16] MEDS: INSULIN LISPRO 300 UNITS/3 ML VIAL. SQ SCH ×2 (08:08→12:00)
--- NOTE | 2021-08-16 08:48 | PDOC ---
PROGRESS NOTES Date of Service DATE: 08/16/21 TIME: 08:46 Assessment Problems Medical Problems: (1) Intractable headache Status: Acute Toxic headache due to high blood pressure, much better after Toradol and Benadryl Intractable migraines, consider medication overuse headache Diabetic neuropathy Discharge delayed because she remains hypertensive Plan Switched nortriptyline to duloxetine, side effects discussed. Prescription sent to [facility] She has coronary artery disease, not a candidate for triptan medications, but for acute treatment she could use calcitonin gene receptor antagonist such as Nurtec or Ubrelvy. Reyvow is another alternative. But we need to get a preventative established first because of medication overuse Okay for discharge when blood pressure stable Follow-up with me or my nurse practitioner in 4-6 weeks Subjective Headache remains under good control, has chronic neck and back pain Objective Vital Signs Date Time Temp Pulse Resp B/P (MAP) Pulse Ox O2 Delivery O2 Flow Rate FiO2 08/16/21 08:09 Room Air 08/16/21 07:58 107 180/104 08/16/21 07:00 98.0 18 96 98.0 Intake and Output 08/16/21 07:00 Intake Total 390 ml Output Total 550 ml Balance -160 ml Intake Oral 390 ml Output Urine Total 550 ml # Bowel Movements 1 PHYSICAL EXAM Alert. Oriented to time, place and person. PERRL. EOMI. left eye exotropia CN: no focal findings. Muscle tone: normal. Muscle strength: 5/5 DTR: 1+ Plantar reflex: Flexor Gait: not examined in bed. Sensory exam: Stocking loss No cerebellar signs elicited. Review of Relevant I have reviewed the following items driss (where applicable) has been applied. Labs Laboratory Tests Test 08/14/21 10:20 08/14/21 11:51 08/14/21 16:50 08/14/21 19:16 SARS-CoV-2 RNA (SANDY) Negative (Negative) SARS-CoV-2 Antigen (Rapid) Negative (NEGATIVE) Glucose (Fingerstick) 170 mg/dL (70-99) 115 mg/dL (70-99) 161 mg/dL (70-99) Test 08/15/21 07:55 08/15/21 11:34 08/15/21 16:46 08/15/21 19:11 Glucose (Fingerstick) 153 mg/dL (70-99) 144 mg/dL (70-99) 126 mg/dL (70-99) 219 mg/dL (70-99) Test 08/16/21 07:10 Glucose (Fingerstick) 151 mg/dL (70-99) Laboratory Tests Test 08/15/21 11:34 08/15/21 16:46 08/15/21 19:11 08/16/21 07:10 Glucose (Fingerstick) 144 mg/dL (70-99) 126 mg/dL (70-99) 219 mg/dL (70-99) 151 mg/dL (70-99) Medications Current Medications Fentanyl Citrate (Fentanyl 2ml Vial) 50 mcg PRN Q15MIN PRN IV PAIN GREATER THAN 3/10 Last administered on 08/14/21at 03:16; Start 08/13/21 at 18:15; Stop 08/14/21 at 18:14; Status DC Hydralazine HCl (Apresoline Inj) 10 mg 1X ONCE IVP Last administered on 08/13/21at 18:51; Start 08/13/21 at 18:15; Stop 08/13/21 at 18:16; Status DC Ondansetron HCl (Zofran) 4 mg PRN Q8HRS PRN IVP NAUSEA/VOMITING; Start 08/13/21 at 23:00; Stop 08/14/21 at 22:59; Status DC Fentanyl Citrate (Fentanyl 2ml Vial) 50 mcg PRN Q1HR PRN IVP PAIN Last administered on 08/14/21at 00:27; Start 08/13/21 at 23:00; Stop 08/14/21 at 22:59; Status DC Acetaminophen (Tylenol) 650 mg PRN Q4HRS PRN PO FEVER > 100.3'F Last administered on 08/13/21at 23:11; Start 08/13/21 at 23:00; Stop 08/14/21 at 22:59; Status DC Hydralazine HCl (Apresoline Inj) 10 mg PRN Q4HRS PRN IVP ELEVATED BP, SEE COMMENTS Last administered on 08/15/21at 13:52; Start 08/13/21 at 23:00 Atorvastatin Calcium (Lipitor) 40 mg QHS PO ; Start 08/14/21 at 00:15; Stop 08/14/21 at 00:02; Status DC Latanoprost (Xalatan) 1 drop HS OU Last administered on 08/15/21at 20:39; Start 08/14/21 at 00:00 Levothyroxine Sodium (Synthroid) 50 mcg DAILY06 PO Last administered on 08/16/21at 05:55; Start 08/14/21 at 06:00 Nortriptyline HCl (Pamelor) 25 mg QHS PO ; Start 08/14/21 at 21:00; Stop 08/14/21 at 00:15; Status DC Insulin Glargine (Lantus Syringe) 28 unit QHS SQ ; Start 08/14/21 at 21:00; Stop 08/14/21 at 00:15; Status DC Non-Formulary Medication (Ubidecarenone (Co Q-10)) 400 mg HS PO ; Start 08/14/21 at 21:00; Status UNV Atorvastatin Calcium (Lipitor) 40 mg QHS PO ; Start 08/14/21 at 21:00; Stop 08/14/21 at 00:15; Status DC Atorvastatin Calcium (Lipitor) 40 mg QHS PO Last administered on 08/15/21at 20:18; Start 08/14/21 at 00:15 Insulin Glargine (Lantus Syringe) 28 unit QHS SQ Last administered on 08/15/21at 20:27; Start 08/14/21 at 00:15 Nortriptyline HCl (Pamelor) 25 mg QHS PO Last administered on 08/14/21at 00:26; Start 08/14/21 at 00:15; Stop 08/14/21 at 11:29; Status DC Metformin HCl (Glucophage) 1,000 mg BIDWMEALS PO Last administered on 08/16/21at 07:56; Start 08/14/21 at 08:00 Influenza Virus Vaccine Quadrival (Flulaval Quad [id number] Syringe) 0.5 ml ONCE ONCE VAX IM ; Start 08/14/21 at 09:00; Stop 08/14/21 at 09:01; Status DC Calcium Carbonate/ Glycine (Tums) 500 mg PRN Q4HRS PRN PO INDIGESTION Last administered on 08/14/21at 03:23; Start 08/14/21 at 03:30 Prochlorperazine Edisylate (Compazine) 10 mg 1X ONCE IV Last administered on 08/14/21 03:23; Start 08/14/21 at 03:30; Stop 08/14/21 at 03:31; Status DC Amoxicillin/ Clavulanate Potassium (Augmentin 875/ 125mg) 1 tab BID PO Last administered on 08/16/21 07:55; Start 08/14/21 at 09:00 Aspirin (Aspirin Chewable) 81 mg DAILY PO Last administered on 08/16/21 07:58; Start 08/14/21 at 09:00 Clopidogrel Bisulfate (Plavix) 75 mg DAILY PO Last administered on 08/16/21 07:57; Start 08/14/21 at 09:00 Lisinopril (Prinivil) 40 mg DAILY PO Last administered on 08/16/21 07:56; Start 08/14/21 at 09:00 Metoprolol Succinate (Toprol Xl) 100 mg DAILY PO Last administered on 08/16/21 07:57; Start 08/14/21 at 09:00 Calcium Carbonate/ Glycine (Tums) 250 mg PRN Q3HRS PRN PO INDIGESTION; Start 08/14/21 at 09:00; Status Cancel Vitamin D (Vitamin D3) 2,000 unit DAILY PO Last administered on 08/16/21 07:58; Start 08/14/21 at 09:00 Non-Formulary Medication (Insulin Aspart (Novolog)) 6 units TIDBFRMEAL PRN SQ blood sugar; Start 08/14/21 at 08:45; Status UNV Lactobacillus Rhamnosus (Culturelle) 1 cap DAILY PO Last administered on 08/16/21 07:56; Start 08/15/21 at 09:00 Cetirizine HCl (ZyrTEC) 10 mg DAILY PO Last administered on 08/16/21 07:57; Start 08/14/21 at 09:15 Multivitamins (Thera M Plus) 1 tab DAILY PO Last administered on 08/16/21 07:58; Start 08/14/21 at 09:00 Pantoprazole Sodium (Protonix) 40 mg DAILYAC PO Last administered on 08/15/21 08:53; Start 08/14/21 at 11:30 Linagliptin (Tradjenta) 5 mg DAILY PO Last administered on 11/5/21at 07:57; Start 08/14/21 at 09:00 Insulin Human Lispro (HumaLOG) 0-5 UNITS TIDWMEALS SQ Last administered on 08/16/21at 08:08; Start 08/14/21 at 12:00 Dextrose (Dextrose 50%-Water Syringe) 12.5 gm PRN Q15MIN PRN IV SEE COMMENTS; Start 08/14/21 at 09:30 Duloxetine HCl (Cymbalta) 30 mg DAILY PO Last administered on 08/16/21at 07:56; Start 08/14/21 at 11:30 Ketorolac Tromethamine (Toradol 30mg Vial) 30 mg 1X ONCE IM Last administered on 08/14/21at 12:38; Start 08/14/21 at 11:30; Stop 08/14/21 at 11:40; Status DC Diphenhydramine HCl (Benadryl) 25 mg 1X ONCE IM Last administered on 08/14/21at 12:38; Start 08/14/21 at 11:30; Stop 08/14/21 at 11:40; Status DC Ketorolac Tromethamine (Toradol 30mg Vial) 30 mg 1X ONCE IM Last administered on 08/15/21at 04:32; Start 08/15/21 at 04:30; Stop 08/15/21 at 04:31; Status DC Acetaminophen (Tylenol) 650 mg PRN Q6HRS PRN PO MILD PAIN / TEMP > 100.3'F Last administered on 08/15/21at 20:20; Start 08/15/21 at 09:00 Amlodipine Besylate (Norvasc) 5 mg DAILY PO Last administered on 08/16/21at 07:58; Start 08/15/21 at 14:15 Active Scripts Active Cymbalta (Duloxetine Hcl) 30 Mg Capsule.dr 30 Mg PO DAILY 30 Days Augmentin 875-125 Tablet (Amoxicillin/Potassium Clav) 1 Each Tablet 1 Tab PO BID 10 Days Reported Metformin Hcl 1,000 Mg Tablet 1,000 Mg PO BID Tresiba (Insulin Degludec) 100 Unit/1 Ml Vial 28 Unit SQ HS Novolog (Insulin Aspart) 100 Unit/1 Ml Cartridge 6 Units SQ TIDBFRMEAL PRN Atorvastatin Calcium 40 Mg Tablet 1 Tab PO QHS Tums (Calcium Carbonate) 300 Mg Tab.chew 300 Mg PO PRN Q3HRS PRN Latanoprost 2.5 Ml Drops 1 Drop OP HS Januvia (Sitagliptin Phosphate) 100 Mg Tablet 1 Tab PO DAILY One Daily For Women 50+ Adv Tb (Multivitamins-Min/Fa/Ginkgo) 1 Each Tablet 1 Each PO DAILY Loratadine 10 Mg Tablet 1 Tab PO DAILY Aspirin 81 Mg Tab.chew 81 Mg PO DAILY Levothyroxine Sodium 25 Mcg Tablet 50 Mcg PO DAILYAC Clopidogrel (Clopidogrel Bisulfate) 75 Mg Tablet 75 Mg PO DAILY Lisinopril 40 Mg Tablet 40 Mg PO DAILY Metoprolol Succinate ( Xl ) (Metoprolol Succinate) 100 Mg Tab.er.24h 100 Mg PO DAILY Fish Oil 1,000 Mg Capsule ([place]-3 Fatty Acids/Fish Oil) 1 Each Capsule 1 Each PO BID Co Q-10 (Ubidecarenone) 400 Mg Capsule 400 Mg PO HS [employer] Capsule (L Gasseri/B Bifidum/B Longum) 1 Each Capsule 1 Each PO DAILY D3-2000 (Cholecalciferol (Vitamin D3)) 2,000 Unit Capsule 2,000 Unit PO DAILY Prilosec (Omeprazole) 40 Mg Capsule.dr 40 Mg PO DAILY Vitals/I & O Vital Sign - Last 24 Hours 08/15/21 08/15/21 08/15/21 08/15/21 08:52 08:53 11:00 13:52 Temp 97.6 97.6 Pulse 98 98 89 89 Resp 18 B/P (MAP) 148/58 148/58 170/106 (127) 170/106 Pulse Ox 97 O2 Delivery Room Air 08/15/21 08/15/21 08/15/21 08/15/21 15:00 15:15 19:56 20:00 Temp 97.6 98.5 97.6 98.5 Pulse 93 89 107 Resp 18 18 B/P (MAP) 145/85 (105) 170/106 118/65 (82) Pulse Ox 96 95 O2 Delivery Room Air Room Air Room Air 08/15/21 08/16/21 08/16/21 08/16/21 23:28 03:00 04:19 07:00 Temp 98.2 98.2 98.2 98.0 98.2 98.2 98.2 98.0 Pulse 103 106 106 107 Resp 18 18 18 18 B/P (MAP) 123/69 (87) 132/75 (94) 132/75 (94) 180/104 (129) Pulse Ox 96 96 96 96 O2 Delivery Room Air Room Air Room Air Room Air 08/16/21 08/16/21 08/16/21 08/16/21 07:56 07:57 07:58 08:09 Pulse 107 107 107 B/P (MAP) 180/104 180/104 180/104 O2 Delivery Room Air Intake and Output 08/15/21 08/15/21 08/16/21 15:00 23:00 07:00 Intake Total 390 ml Output Total 550 ml Balance -160 ml Justicifation of Admission Dx: Justifications for Admission: Justification of Admission Dx: N/A HAYDEN MCDONNELL MD Aug 16, 2021 08:48
--- NOTE | 2021-08-16 09:26 | PDOC ---
PROGRESS NOTES Date of Service: DATE: 08/16/21 TIME: 09:24 Subjective Subjective headaches better want to go home Objective Objective Vital Signs Date Time Temp Pulse Resp B/P (MAP) Pulse Ox O2 Delivery O2 Flow Rate FiO2 08/16/21 08:09 Room Air 08/16/21 07:58 107 180/104 08/16/21 07:00 98.0 18 96 98.0 Intake and Output 08/16/21 07:00 Intake Total 390 ml Output Total 550 ml Balance -160 ml Intake Oral 390 ml Output Urine Total 550 ml # Bowel Movements 1 Physical Exam Abdomen: Soft Heart: Regular rate, Normal S1, Normal S2 Extremities: No clubbing General: Alert, Oriented X3 HEENT: Atraumatic Lungs: Clear to auscultation MUSCULOSKELETAL: No deformity, Osteoarthritic changes both hands Neck: Supple Neuro: Normal speech Psych/Mental Status: Mental status NL Skin: No breakdown Diagnosis Problem List Problems Medical Problems: (1) Intractable headache Status: Acute Assessment Assessment Problems Medical Problems: (1) Intractable headache Status: Acute FINAL IMPRESSION: 1. Severe migraine headaches. 2. Colon diverticulitis, sigmoid colon. 3. Insulin-dependent diabetes. 4. Coronary artery disease, stable. History of previous stents. 5. Diabetes. 6. Hypertension. 7. Hyperlipidemia. PLAN: added amlodipine for BP control toradol helping headache agree with cymbalta. can try new biologic meds out pt. d/c home today, will manage bp out pt labs good. At this time, the patient is admitted to the hospital, was given fentanyl, Neurology consultation and the patient to continue on Augmentin for diverticulitis and see how she does. Plan Plan of Care Problems Medical Problems: (1) Intractable headache Status: Acute Comment Review of Relevant I have reviewed the following items driss (where applicable) has been applied. Labs Laboratory Tests Test 08/15/21 11:34 08/15/21 16:46 08/15/21 19:11 08/16/21 07:10 Glucose (Fingerstick) 144 mg/dL (70-99) 126 mg/dL (70-99) 219 mg/dL (70-99) 151 mg/dL (70-99) Medications Current Medications Amlodipine Besylate (Norvasc) 5 mg DAILY PO Last administered on 08/16/21at 07:58; Start 11/4/21 at 14:15 Vitals/I & O Vital Sign - Last 24 Hours 08/15/21 08/15/21 08/15/21 08/15/21 11:00 13:52 15:00 15:15 Temp 97.6 97.6 97.6 97.6 Pulse 89 89 93 89 Resp 18 18 B/P (MAP) 170/106 (127) 170/106 145/85 (105) 170/106 Pulse Ox 97 96 O2 Delivery Room Air Room Air 08/15/21 08/15/21 08/15/21 08/16/21 19:56 20:00 23:28 03:00 Temp 98.5 98.2 98.2 98.5 98.2 98.2 Pulse 107 103 106 Resp 18 18 18 B/P (MAP) 118/65 (82) 123/69 (87) 132/75 (94) Pulse Ox 95 96 96 O2 Delivery Room Air Room Air Room Air Room Air 08/16/21 08/16/21 08/16/21 08/16/21 04:19 07:00 07:56 07:57 Temp 98.2 98.0 98.2 98.0 Pulse 106 107 107 107 Resp 18 18 B/P (MAP) 132/75 (94) 180/104 (129) 180/104 180/104 Pulse Ox 96 96 O2 Delivery Room Air Room Air 08/16/21 08/16/21 07:58 08:09 Pulse 107 B/P (MAP) 180/104 O2 Delivery Room Air Intake and Output 08/15/21 08/15/21 08/16/21 15:00 23:00 07:00 Intake Total 390 ml Output Total 550 ml Balance -160 ml Justifications for Admission Other Justification ROBERTO STUART MD Aug 16, 2021 09:26
[2021-08-16] MEDS ORDERED: AMLO-186 PO (09:27)
--- NOTE | 2021-08-16 10:40 | NUR ---
SW following. Discussed with RN, discharge order for home with self care. RN advised no SW needs.
[2021-08-16 11:00] VITALS: BP 151/96
--- NOTE | 2021-08-16 13:00 | NUR ---
Discharge Note: DEION OMALLEY Discharge instructions and discharge home medications reviewed with Patient and a copy given. All questions have been answered and understanding verbalized. The following instructions and handouts were given: follow up instructions, medication education Discontinued lines and drains: 20 gauge right hand, tip intact. patient tolerated well. Patient discharged to home with self care via significant other.
--- NOTE | 2021-08-17 12:17 | PDOC ---
Provider Note Date of Service: DATE: 08/17/21 TIME: 12:16 Provider Note Discharge summary dictated,#[id number]. Justifications for Admission Other Justification ROBERTO STUART MD Aug 17, 2021 12:16
--- NOTE | 2021-08-17 12:29 | DS ---
DATE OF DISCHARGE: 08/16/2021 REASON FOR ADMISSION TO THE HOSPITAL: 1. Migraine headaches. 2. Uncontrolled hypertension. CONSULTATIONS: Dr. Dallas, Neurology. PROCEDURES DONE: CT head. HOSPITAL COURSE: The patient is a 56-year-old female. The patient has a history of coronary artery disease, previous stents, hypertension, diabetes, hyperlipidemia, migraine and she uses a lot of ibuprofen and was on hydrocodone in the past and lately headache has been getting worse and came to the Emergency Room, her blood pressure was high. CT head was negative, was seen by Dr. Dallas, Neurology and it was felt it could be a migraine versus overuse medication headaches and the patient was given Toradol IV that helped her headaches, but not completely eliminated. The patient could not take a lot of the triptans because of the coronary artery disease, so it was felt that she may benefit from the newer drugs like Nurtec or Ubrelvy but should be given as outpatient if the headaches does not improve. The patient's blood pressure was high, was given hydralazine, also added amlodipine and she was feeling better. Headaches improved. Blood pressure was slightly high, but she was anxious to go home. The patient was discharged, we can control blood pressure as outpatient. FINAL DIAGNOSES: 1. Uncontrolled headaches. History of previous migraine headaches. 2. Possible overuse medication headache. 3. Coronary artery disease, history of previous coronary artery disease with angioplasty stents. 4. Diabetes. 5. Hypertension. 6. Hyperlipidemia. 7. Obesity. 8. Depression and anxiety. PLAN: At this time, the patient was treated with Cymbalta for migraine prevention. Stop amitriptyline and also given Toradol while in the hospital and also recommended maybe outpatient newer migraine medication, Nurtec or Ubrelvy and also control blood pressure with amlodipine added in addition to metoprolol and lisinopril she takes outpatient. FRANKY DR: Dacia TID: [id number]
== END 2021-08-16 13:02 | disposition home or self-care (01) | DRG 103 ==
LOC: ER 17:12 → 5 NORTH 21:06
PROVIDERS: ADMIT Internal Medicine; ATTEND Internal Medicine
DX: G44.40 Drug-induced headache, not elsewhere classified, not intractable (principal); K57.32 Diverticulitis of large intestine without perforation or abscess without bleeding; N39.0 Urinary tract infection, site not specified; G43.919 Migraine, unspecified, intractable, without status migrainosus; E03.9 Hypothyroidism, unspecified; E66.9 Obesity, unspecified; E78.5 Hyperlipidemia, unspecified; F32.A Depression, unspecified; F41.9 Anxiety disorder, unspecified; G20 Parkinson's disease; G89.29 Other chronic pain; I10 Essential (primary) hypertension; I25.10 Atherosclerotic heart disease of native coronary artery without angina pectoris; Z79.4 Long term (current) use of insulin; Z82.49 Family history of ischemic heart disease and other diseases of the circulatory system; Z83.3 Family history of diabetes mellitus; Z85.41 Personal history of malignant neoplasm of cervix uteri; Z87.891 Personal history of nicotine dependence; Z90.710 Acquired absence of both cervix and uterus; Z95.5 Presence of coronary angioplasty implant and graft; K21.9 Gastro-esophageal reflux disease without esophagitis; M19.90 Unspecified osteoarthritis, unspecified site; Z20.822 Contact with and (suspected) exposure to COVID-19; Z88.2 Allergy status to sulfonamides; Z88.8 Allergy status to other drugs, medicaments and biological substances; Z68.36 Body mass index [BMI] 36.0-36.9, adult; E11.40 Type 2 diabetes mellitus with diabetic neuropathy, unspecified; T50.995A Adverse effect of other drugs, medicaments and biological substances, initial encounter; Y92.89 Other specified places as the place of occurrence of the external cause
CPT/HCPCS: 36415; 70450; 74177; 80053; 81001; 82962; 83690; 83735; 83880; 84484; 85025; 87086; 87426; 93005; 96374; J0360; J0780; J1200; J1815; J1885; J3010; U0003; U0005; 99285-25; G0378